=== PATIENT | female | born 1935 | race Caucasian/White ===

== ENCOUNTER → 2020-02-04 13:57 | Outpatient (BNVA) | payer MEDICARE, OTHER, SELFPAY | PROVIDERS: Visit Provider Orthopaedic Surgery | DX: M17.0 Bilateral primary osteoarthritis of knee (principal) | CPT/HCPCS: 99212 ==

== ENCOUNTER → 2020-03-03 12:32 | Outpatient (BNVA) | payer MEDICARE, OTHER, SELFPAY | PROVIDERS: PCP Internal Medicine; Visit Provider Orthopaedic Surgery | DX: Z13.89 Encounter for screening for other disorder (principal) | CPT/HCPCS: 20610; J7324 ==

== ENCOUNTER 2020-03-17 09:42 | Outpatient (REF) | payer MEDICARE, OTHER, SELFPAY ==
[2020-03-17 12:59] LABS: Anion Gap 13 (12-20); Blood Urea Nitrogen 19 mg/dL (9-16); Calcium 9.2 mg/dL (8.4-10.2); Carbon Dioxide 24 mmol/L (22-29); Chloride 105 mmol/L (96-108); Estimated Glomerular Filt Rate > 60; Phosphorus 3.5 mg/dL (2.7-4.5); Potassium 4.3 mmol/l (3.3-5.1); Sodium 138 mmol/L (135-145)
[2020-03-17 14:11] LABS: Renal w Reflex Lab Use Only Order verified
== END 2020-03-17 09:43 | disposition home or self-care (01) ==
LOC: HO.LAB 09:42
PROVIDERS: Absent Provider Internal Medicine Nephrology; Visit Provider Orthopaedic Surgery
DX: E78.1 Pure hyperglyceridemia (principal); I10 Essential (primary) hypertension
CPT/HCPCS: 20610; 80051; 82310; 82565; 84100; 84520; 99212

== ENCOUNTER → 2020-03-25 09:58 | Outpatient (BNVA) | payer MEDICARE, OTHER, SELFPAY | PROVIDERS: Visit Provider Orthopaedic Surgery | DX: M17.0 Bilateral primary osteoarthritis of knee (principal) | CPT/HCPCS: 20610; 99212 ==

== ENCOUNTER → 2020-03-31 09:42 | Outpatient (BNVA) | payer MEDICARE, OTHER, SELFPAY | PROVIDERS: Visit Provider Orthopaedic Surgery | DX: M17.0 Bilateral primary osteoarthritis of knee (principal) | CPT/HCPCS: 20610 ==

== ENCOUNTER → 2020-06-02 09:24 | Outpatient (BNVA) | payer MEDICARE, OTHER, SELFPAY | PROVIDERS: Visit Provider Orthopaedic Surgery | DX: M17.0 Bilateral primary osteoarthritis of knee (principal) | CPT/HCPCS: 99212 ==

== ENCOUNTER 2020-06-05 10:32 | Outpatient (REF) | payer MEDICARE, SELFPAY ==
--- NOTE | ~2020-06-05 | MM_ITS ---
EXAMINATION: MM SCREENING DIGITAL BREAST TOMOSYNTHESIS, BILATERAL CLINICAL INFORMATION: Screening. Asymptomatic. COMPARISON: Mammography: June 05, 2019 and studies dating back to May 21, 2013 TECHNIQUE: Digital breast tomosynthesis is performed in both the craniocaudal and mediolateral oblique views along with computer-aided detection (CAD). Synthesized 2D images are generated from the tomosynthesis. Spot magnification views of the left breast in craniocaudal and mediolateral oblique views performed. FINDINGS: There are scattered areas of fibroglandular density (ACR BI-RADS breast composition Category b). There are no new significant masses, abnormal calcifications, or other abnormalities. Stable postoperative change left breast seen as well as vascular calcifications. MM/MM tomosynthesis screening BI IMPRESSION: There are no significant changes from prior study. ASSESSMENT: BI-RADS 2: Benign RECOMMENDATION: Routine annual mammography screening. This patient's information was entered into a reminder system with a target due date for their next mammogram.
== END 2020-06-05 10:33 | disposition home or self-care (01) ==
LOC: HO.MAMMO 10:32
PROVIDERS: Visit Provider Internal Medicine Endocrinology, Diabetes & Metabolism
DX: Z12.31 Encounter for screening mammogram for malignant neoplasm of breast (principal)
CPT/HCPCS: 77063; 77067

== ENCOUNTER 2020-09-18 14:07 | Outpatient (REF) | payer MEDICARE, OTHER, SELFPAY ==
[2020-09-18 15:21] LABS: Anion Gap 15 (12-20); Blood Urea Nitrogen 20 mg/dL (9-16); Calcium 9.4 mg/dL (8.4-10.2); Carbon Dioxide 23 mmol/L (22-29); Chloride 106 mmol/L (96-108); Estimated Glomerular Filt Rate > 60; Phosphorus 3.6 mg/dL (2.7-4.5); Potassium 4.1 mmol/L (3.3-5.1); Sodium 140 mmol/L (135-145)
[2020-09-18 17:57] LABS: Renal w Reflex Lab Use Only Order verified
== END 2020-09-18 14:08 | disposition home or self-care (01) ==
LOC: HO.LAB 14:07
PROVIDERS: PCP Internal Medicine; Visit Provider Internal Medicine Nephrology
DX: E87.1 Hypo-osmolality and hyponatremia (principal); I10 Essential (primary) hypertension
CPT/HCPCS: 36415; 80051; 82310; 82565; 84100; 84520

== ENCOUNTER 2021-06-08 10:54 | Outpatient (REF) | payer MEDICARE, OTHER, SELFPAY ==
--- NOTE | ~2021-06-08 | MM_ITS ---
EXAMINATION: MM SCREENING DIGITAL BREAST TOMOSYNTHESIS, BILATERAL CLINICAL INFORMATION: Screening. Asymptomatic. Left breast cancer status post lumpectomy, 2013. COMPARISON: Mammography: 06/05/2020, 06/05/2019, 05/31/2019, 05/25/2018 TECHNIQUE: Digital breast tomosynthesis is performed in both the craniocaudal and mediolateral oblique views along with computer-aided detection (CAD). Synthesized 2D images are generated from the tomosynthesis. Additional exaggerated right CC and additional left CC and left MLO views are provided. FINDINGS: There are scattered areas of fibroglandular density (ACR BI-RADS breast composition Category b). There are post therapy changes on the left with reduced breast size and stable scarring. The bilateral breasts show similar parenchymal pattern without interval mass or architectural abnormality or abnormal calcifications. There are no significant changes. MM/MM tomosynthesis screening BI IMPRESSION: No mammographic evidence of malignancy. Post therapy changes left breast, stable. ASSESSMENT: BI-RADS 2: Benign RECOMMENDATION: Routine annual mammography screening. This patient's information was entered into a reminder system with a target due date for their next mammogram.
== END 2021-06-08 10:55 | disposition home or self-care (01) ==
LOC: HO.MAMMO 10:54
PROVIDERS: PCP Internal Medicine; Visit Provider Internal Medicine
DX: Z12.31 Encounter for screening mammogram for malignant neoplasm of breast (principal)
CPT/HCPCS: 77063; 77067

== ENCOUNTER 2021-08-16 09:09 | Day surgery (SDC) | payer MEDICARE, SELFPAY ==
[2021-08-03 11:07] VITALS: BMI 31.4
--- NOTE | 2021-08-06 09:02 | P.CONAN_ITS ---
Documented by User: Kerri Epstein NP 08/06/21 09:04 HPI - Anesthesia Eval Consult details Narrative: 86yo F for Left Cataract Extraction IOL Insertion PCP cleared No previous cataract on record [facility] Active Problems Active Problems: All Active Problems (Updated 08/03/21 @ 15:42 by Joanne Jacques, RN) Primary osteoarthritis of knees, bilateral (Acute) Past Medical History Medical History (Updated 08/03/21 @ 15:42 by Joanne Jacques, RN) Arthritis Asthma Breast cancer Cataract Cough Fatty liver GERD (gastroesophageal reflux disease) HTN (hypertension) Leg edema, left PVD (peripheral vascular disease) Trigeminal neuralgia Vertigo Surgical History Surgical History (Updated 08/03/21 @ 10:52 by Joanne Jacques, RN) History of left salpingo-oophorectomy History of lumpectomy of left breast History of nasal polypectomy History of surgical removal of meniscus of knee Hx of cholecystectomy Hx of hysterectomy Social History Social History Household Members Other:: Ex DIL Are you a primary home care chaplain to a significant other at home: No Do you presently have visiting nurse or other home services: No Patient Tobacco Use Status: Never used Tobacco Use of substances other than those prescribed or required for medical reasons: No Have you been hit, kicked, punched, or otherwise hurt by someone within the past year? If so, by whom?: No Are you DNR?: No Advance Directives: No Advance Directives Information Provided: Yes Advance Directives on File: No Recently lost weight without trying: No Eating poorly because of decreased appetite: No Nutrition Risks: No Nutritional Risk Patient : No : No Meds Allergies Allergy/AdvReac Type Severity Reaction Status Date / Time aspirin [Aspirin] Allergy Unknown NOSEBLEEDS Verified 08/16/21 09:43 codeine [Codeine] Allergy Unknown N/V Verified 08/16/21 09:43 morphine [MORPHINE] Allergy Unknown NAUSEA/VOMI Verified 08/16/21 09:43 TING Penicillins Allergy Unknown FACIAL Verified 08/16/21 09:43 SWELLING Home Medications Medication Instructions Recorded Confirmed Last Taken Type amlodipine 2.5 mg tablet 2.5 mg PO DAILY 02/03/20 08/16/21 08/16/21 08:00 History omeprazole 20 mg capsule,delayed 20 mg PO DAILY 02/03/20 08/03/21 Unknown History release Exam Exam Date and Time: August 06, [id number] Height,Weight and Vital Signs: Height 5 ft Weight 73.028 kg Assessment and Plan Assessment Anesthesia Assessment: Chart Reviewed Documented by User: Hernán Boykin MD 08/16/21 09:47 [facility] Past Medical History Medical History (Updated 08/03/21 @ 15:42 by Joanne Jacques, RN) Arthritis Asthma Breast cancer Cataract Cough Fatty liver GERD (gastroesophageal reflux disease) HTN (hypertension) Leg edema, left PVD (peripheral vascular disease) Trigeminal neuralgia Vertigo Family History Family history of problems with anesthesia: No Surgical History Surgical History (Updated 08/03/21 @ 10:52 by Joanne Jacques, RN) History of left salpingo-oophorectomy History of lumpectomy of left breast History of nasal polypectomy History of surgical removal of meniscus of knee Hx of cholecystectomy Hx of hysterectomy History of Problems with Anesthesia: No Social History Social History Household Members Other:: Ex DIL Are you a primary home care chaplain to a significant other at home: No Do you presently have visiting nurse or other home services: No Patient Tobacco Use Status: Never used Tobacco Use of substances other than those prescribed or required for medical reasons: No Have you been hit, kicked, punched, or otherwise hurt by someone within the past year? If so, by whom?: No Are you DNR?: No Advance Directives: No Advance Directives Information Provided: Yes Advance Directives on File: No Recently lost weight without trying: No Eating poorly because of decreased appetite: No Nutrition Risks: No Nutritional Risk Patient : No : No Meds Allergies Allergy/AdvReac Type Severity Reaction Status Date / Time aspirin [Aspirin] Allergy Unknown NOSEBLEEDS Verified 08/16/21 09:43 codeine [Codeine] Allergy Unknown N/V Verified 08/16/21 09:43 morphine [MORPHINE] Allergy Unknown NAUSEA/VOMI Verified 08/16/21 09:43 TING Penicillins Allergy Unknown FACIAL Verified 08/16/21 09:43 SWELLING Home Medications Medication Instructions Recorded Confirmed Last Taken Type amlodipine 2.5 mg tablet 2.5 mg PO DAILY 02/03/20 08/16/21 08/16/21 08:00 History omeprazole 20 mg capsule,delayed 20 mg PO DAILY 02/03/20 08/03/21 Unknown History release Exam Airway Mallampati Class: II TM Dist: >3cm Neck ROM: Full Denture: Upper and Lower Heart: rrr+[id number] Lungs: cta b/l Assessment and Plan Assessment Anesthesia Assessment: Anesthesia Plan Discussed Final Anesthetic Review Family History of Problems with Anesthesia: No History of Problems with Anesthesia: No NPO: Yes ASA Class: III Final Preanesthetic Review: No Changes in Pt Med Stat, Meds/Allgs Chart Reviewed, Consent Obtained/Reviewed and Anes Risks/Benef Reviewed Patient Risk: Intermediate Procedure Risk: Low Assessment/Block/Sedation in SS: Assess/Block/Sedation-SS Anesthetic Plan Anesthetic Plan: MAC: and Agree w/ Assess. and Plan Disposition: Standard PACU
--- NOTE | 2021-08-06 11:43 | MHC.SHP ---
Pre-Procedural Eval Section A Date of Service: 08/06/21 The patient is an INPATIENT: No Changes since office visit: No Cold of Flu in the past 2 weeks, No New Medical Problems, No Changes in Medication and No Patient answered all questions The History & Physical has been completed within 30 days and I have reviewed it.: Yes Section B Chief Complaint: cataract Allergies: Allergies Allergy/AdvReac Type Severity Reaction Status Date / Time aspirin [Aspirin] Allergy Unknown NOSEBLEEDS Unverified 08/03/21 10:53 codeine [Codeine] Allergy Unknown N/V Unverified 08/03/21 10:53 morphine [MORPHINE] Allergy Unknown NAUSEA/VOMI Unverified 08/03/21 10:53 TING Penicillins Allergy Unknown FACIAL Unverified 08/03/21 10:53 SWELLING Plan Diagnosis/Plan: Unchanged I have reviewed the history and physical and performed a pertinent physical examination on my patient. No changes have occurred unless specified.
--- NOTE | 2021-08-12 08:12 | MHC.SHP ---
Pre-Procedural Eval Section A Date of Service: 08/12/21 The patient is an INPATIENT: No Changes since office visit: No Cold of Flu in the past 2 weeks, No New Medical Problems, No Changes in Medication and No Patient answered all questions The History & Physical has been completed within 30 days and I have reviewed it.: Yes Section B Chief Complaint: cataract Allergies: Allergies Allergy/AdvReac Type Severity Reaction Status Date / Time aspirin [Aspirin] Allergy Unknown NOSEBLEEDS Unverified 08/03/21 10:53 codeine [Codeine] Allergy Unknown N/V Unverified 08/03/21 10:53 morphine [MORPHINE] Allergy Unknown NAUSEA/VOMI Unverified 08/03/21 10:53 TING Penicillins Allergy Unknown FACIAL Unverified 08/03/21 10:53 SWELLING Plan Diagnosis/Plan: Unchanged I have reviewed the history and physical and performed a pertinent physical examination on my patient. No changes have occurred unless specified.
[2021-08-16] MEDS: Tetracaine HCl/PF 0.5% Oph Sol 4 ML DROPS 1 DROP EYE-LEFT (09:51)
[2021-08-16] MEDS: Tropicamide 1 % Ophth Sol 3 ML BTL 1 DROP EYE-LEFT ×3 (09:52→10:04)
[2021-08-16] MEDS: Phenylephrine HCL 2.5% Oph SoL 2 ML BOTTLE 1 DROP EYE-LEFT ×3 (09:56→10:08)
[2021-08-16 10:08] VITALS: BP 183/86; PULSE 88; RESP 16; TEMP 37; O2SAT 97
[2021-08-16] MEDS: Lactated Ringers 500 ML 50 ML IV (10:08)
--- NOTE | 2021-08-16 11:02 | P.PCNO_ITS ---
Ophthalmology Procedure Procedure Date of Service: 08/16/21 Ophthalmology Viscoelastic: Healgabriela Duet Dual Pack Pro Ophthalmology Lenses: TECNIS [id number] (15.5) Procedure Notes: PREOPERATIVE DIAGNOSIS: Decreased visual acuity left eye secondary to cataract POSTOPERATIVE DIAGNOSIS: Same PROCEDURE: Left cataract extraction with intraocular lens insertion SURGEON: Jordi Branch M.D. ANESTHESIA: Topical/MAC ESTIMATED BLOOD LOSS: None COMPLICATIONS: Zonular Dehiscence After obtaining informed consent, the patient was brought to the operation room suite and placed in the supine position. After adequate sedation per anesthesia, topical drops of Tetracaine were given to the left eye. The eye was then prepped and draped in the usual sterile fashion. The operating room microscope was then positioned over the operative eye and a lid speculum placed. A paracentesis was created. Viscoelastic was then instilled into the anterior chamber. A three plane incision was then created temporally, utilizing a 2.85 mm keratome. Capsulotomy forceps were then utilized to create a circular tear capsulotomy. Hydrodissection and hydrodelineation were carried out until adequate mobilization of the nucleus occurred. Phacoemulsification was then utilized to remove the dense central n ucleus followed by removal of the cortical material utilizing the automated aspiration irrigation unit.Zonular Dehiscence was noted at this time, a Capsular Tension Ring was placed. Viscoat elastic was instilled into the posterior capsular bag followed by placement of a posterior chamber intraocular lens without difficulty. The residual Viscoat elastic was then removed utilizing the automated IA machine. The wound was check and found to be watertight. The patient tolerated the procedure well and the lid speculum was removed. Intracameral injection of Vigamox 0.1 mL followed by a subtenon injection of Kenalog-40 0.2 mL were administered. The patient will be seen in the a.m.
[2021-08-16 11:32] VITALS: BP 174/81; PULSE 83; RESP 16; TEMP 36.6; O2SAT 97
== END 2021-08-16 11:47 | disposition home or self-care (01) ==
PROVIDERS: PCP Internal Medicine; Visit Provider Ophthalmology
PROC: (CPT 66985; principal; 2021-08-16 11:20)
DX: H25.13 Age-related nuclear cataract, bilateral (principal); H52.4 Presbyopia; H35.033 Hypertensive retinopathy, bilateral; H40.013 Open angle with borderline findings, low risk, bilateral; H59.88 Other intraoperative complications of eye and adnexa, not elsewhere classified; H27.8 Other specified disorders of lens; Y83.8 Other surgical procedures as the cause of abnormal reaction of the patient, or of later complication, without mention of misadventure at the time of the procedure; Y92.234 Operating room of hospital as the place of occurrence of the external cause; Y77.8 Miscellaneous ophthalmic devices associated with adverse incidents, not elsewhere classified; I10 Essential (primary) hypertension; G50.0 Trigeminal neuralgia; Z79.899 Other long term (current) drug therapy; Z88.0 Allergy status to penicillin; Z88.8 Allergy status to other drugs, medicaments and biological substances; Z85.3 Personal history of malignant neoplasm of breast; H18.413 Arcus senilis, bilateral; H35.433 Paving stone degeneration of retina, bilateral; H02.831 Dermatochalasis of right upper eyelid; H02.834 Dermatochalasis of left upper eyelid
CPT/HCPCS: 66982; J2250; J3300; V2632

== ENCOUNTER 2021-08-30 08:59 | Day surgery (SDC) | payer MEDICARE, OTHER, SELFPAY ==
[2021-08-03 11:15] VITALS: BMI 31.4
--- NOTE | 2021-08-26 08:33 | MHC.SHP ---
Pre-Procedural Eval Section A Date of Service: 08/26/21 The patient is an INPATIENT: No Changes since office visit: No Cold of Flu in the past 2 weeks, No New Medical Problems, No Changes in Medication and No Patient answered all questions The History & Physical has been completed within 30 days and I have reviewed it.: Yes Section B Chief Complaint: cataract Allergies: Allergies Allergy/AdvReac Type Severity Reaction Status Date / Time aspirin [Aspirin] Allergy Unknown NOSEBLEEDS Verified 08/16/21 09:43 codeine [Codeine] Allergy Unknown N/V Verified 08/16/21 09:43 morphine [MORPHINE] Allergy Unknown NAUSEA/VOMI Verified 08/16/21 09:43 TING Penicillins Allergy Unknown FACIAL Verified 08/16/21 09:43 SWELLING Plan Diagnosis/Plan: Unchanged I have reviewed the history and physical and performed a pertinent physical examination on my patient. No changes have occurred unless specified.
--- NOTE | 2021-08-26 12:10 | HO.ANESPROP2 ---
Documented by User: Kerri Epstein NP 08/26/21 12:10 HPI - Anesthesia Eval Consult details Narrative: 86yo F for Right Cataract Extraction IOL Insertion PCP cleared Left eye done 08/16/21 with MAC: Midaz 1 PMFSH Active Problems Active Problems: All Active Problems (Updated 08/03/21 @ 15:42 by Joanne Jacques, RN) Primary osteoarthritis of knees, bilateral (Acute) Past Medical History Medical History (Updated 08/03/21 @ 15:42 by Joanne Jacques, RN) Arthritis Asthma Breast cancer Cataract Cough Fatty liver GERD (gastroesophageal reflux disease) HTN (hypertension) Leg edema, left PVD (peripheral vascular disease) Trigeminal neuralgia Vertigo Family History Family history of problems with anesthesia: No Surgical History Surgical History (Updated 08/03/21 @ 10:52 by Joanne Jacques, LON) History of left salpingo-oophorectomy History of lumpectomy of left breast History of nasal polypectomy History of surgical removal of meniscus of knee Hx of cholecystectomy Hx of hysterectomy History of Problems with Anesthesia: No Social History Social History Household Members Other:: Ex DIL Are you a primary child adolescent care to a significant other at home: No Do you presently have visiting nurse or other home services: No Patient Tobacco Use Status: Never used Tobacco Use of substances other than those prescribed or required for medical reasons: No Have you been hit, kicked, punched, or otherwise hurt by someone within the past year? If so, by whom?: No Are you DNR?: No Advance Directives: No Advance Directives Information Provided: Yes Advance Directives on File: No Recently lost weight without trying: No Eating poorly because of decreased appetite: No Nutrition Risks: No Nutritional Risk Patient : No : No Meds Allergies Allergy/AdvReac Type Severity Reaction Status Date / Time aspirin [Aspirin] Allergy Unknown NOSEBLEEDS Verified 08/16/21 09:43 codeine [Codeine] Allergy Unknown N/V Verified 08/16/21 09:43 morphine [MORPHINE] Allergy Unknown NAUSEA/VOMI Verified 08/16/21 09:43 TING Penicillins Allergy Unknown FACIAL Verified 08/16/21 09:43 SWELLING Home Medications Medication Instructions Recorded Confirmed Last Taken Type amlodipine 2.5 mg tablet 2.5 mg PO DAILY 02/03/20 08/16/21 08/16/21 08:00 History omeprazole 20 mg capsule,delayed 20 mg PO DAILY 02/03/20 08/03/21 Unknown History release Exam Exam Date and Time: August 26, 2021 1210 Height,Weight and Vital Signs: Height 5 ft Weight 73.028 kg Assessment and Plan Assessment Anesthesia Assessment: Chart Reviewed Final Anesthetic Review Family History of Problems with Anesthesia: No History of Problems with Anesthesia: No Documented by User: Hernán Boykin MD 08/30/21 07:25 [facility] Past Medical History Medical History (Updated 08/03/21 @ 15:42 by Joanne Jacques, RN) Arthritis Asthma Breast cancer Cataract Cough Fatty liver GERD (gastroesophageal reflux disease) HTN (hypertension) Leg edema, left PVD (peripheral vascular disease) Trigeminal neuralgia Vertigo Surgical History Surgical History (Updated 08/03/21 @ 10:52 by Joanne Jacques, RN) History of left salpingo-oophorectomy History of lumpectomy of left breast History of nasal polypectomy History of surgical removal of meniscus of knee Hx of cholecystectomy Hx of hysterectomy Social History Social History Household Members Other:: Ex DIL Are you a primary child adolescent care to a significant other at home: No Do you presently have visiting nurse or other home services: No Patient Tobacco Use Status: Never used Tobacco Use of substances other than those prescribed or required for medical reasons: No Have you been hit, kicked, punched, or otherwise hurt by someone within the past year? If so, by whom?: No Are you DNR?: No Advance Directives: No Advance Directives Information Provided: Yes Advance Directives on File: No Recently lost weight without trying: No Eating poorly because of decreased appetite: No Nutrition Risks: No Nutritional Risk Patient : No : No Meds Allergies Allergy/AdvReac Type Severity Reaction Status Date / Time aspirin [Aspirin] Allergy Unknown NOSEBLEEDS Verified 08/16/21 09:43 codeine [Codeine] Allergy Unknown N/V Verified 08/16/21 09:43 morphine [MORPHINE] Allergy Unknown NAUSEA/VOMI Verified 08/16/21 09:43 TING Penicillins Allergy Unknown FACIAL Verified 08/16/21 09:43 SWELLING Home Medications Medication Instructions Recorded Confirmed Last Taken Type amlodipine 2.5 mg tablet 2.5 mg PO DAILY 02/03/20 08/16/21 08/16/21 08:00 History omeprazole 20 mg capsule,delayed 20 mg PO DAILY 02/03/20 08/03/21 Unknown History release Exam Airway Mallampati Class: II TM Dist: >3cm Neck ROM: Full Denture: Upper and Lower Loose/Missing/Broken Teeth: Yes Heart: rrr+s1s2 Lungs: cta b/l Assessment and Plan Assessment Anesthesia Assessment: Anesthesia Plan Discussed Final Anesthetic Review NPO: Yes ASA Class: III Final Preanesthetic Review: No Changes in Pt Med Stat, Meds/Allgs Chart Reviewed, Consent Obtained/Reviewed and Anes Risks/Benef Reviewed Patient Risk: Intermediate Procedure Risk: Low Assessment/Block/Sedation in SS: Assess/Block/Sedation-SS Anesthetic Plan Anesthetic Plan: Agree w/ Assess. and Plan Disposition: Standard PACU
[2021-08-30 10:00] VITALS: BP 172/81; PULSE 98; RESP 18; TEMP 36.1; O2SAT 98
[2021-08-30] MEDS: Tetracaine HCl/PF 0.5% Oph Sol 4 ML DROPS 1 DROP EYE-RIGHT (10:21)
[2021-08-30] MEDS: Tropicamide 1 % Ophth Sol 3 ML BTL 1 DROP EYE-RIGHT ×3 (10:21→10:26)
[2021-08-30] MEDS: Phenylephrine HCL 2.5% Oph SoL 2 ML BOTTLE 1 DROP EYE-RIGHT ×3 (10:22→10:27)
[2021-08-30] MEDS: Lactated Ringers 500 ML 50 ML IV (10:37)
--- NOTE | 2021-08-30 11:22 | HO.PNOPHT ---
Ophthalmology Procedure Procedure Date of Service: 08/30/21 Ophthalmology Viscoelastic: Nicky Plascenciat Dual Pack Pro Ophthalmology Lenses: TECBACILIO [id number] (15) Procedure Notes: PREOPERATIVE DIAGNOSIS: Decreased visual acuity right eye secondary to cataract POSTOPERATIVE DIAGNOSIS: Same PROCEDURE: Right cataract extraction with intraocular lens insertion SURGEON: Jordi Branch M.D. ANESTHESIA: Topical/MAC ESTIMATED BLOOD LOSS: None COMPLICATIONS: None After obtaining informed consent, the patient was brought to the operating room suite and placed in the supine position. After adequate sedation per anesthesia, topical drops of Tetracaine were given to the right eye. The eye was then prepped and draped in the usual sterile fashion. The operating room microscope was then positioned over the operative eye and a lid speculum placed. A paracentesis was created. Viscoelastic was then instilled into the anterior chamber. A three plane incision was then created temporally, utilizing a 2.85 mm keratome. Capsulotomy forceps were then utilized to create a circular tear capsulotomy. Hydrodissection and hydrodelineation were carried out until adequate mobilization of the nucleus occurred. Phacoemulsification was then utilized to remove the dense central nucleus followed by removal of the cortical material utilizing the automated aspiration irrigation unit. Viscoelastic was instilled into the posterior capsular bag followed by placement of a posterior chamber intraocular lens without difficulty. The residual Viscoelastic was then removed utilizing the automated IA machine. The wound was checked and found to be watertight. The patient tolerated the procedure well and the lid speculum was removed. Intracameral injection of Vigamox 0.1 mL followed by a subtenon injection of Kenalog-40 0.2 mL were administered. The patient will be seen in the a.m.
[2021-08-30 11:49] VITALS: BP 172/75; PULSE 97; RESP 16; TEMP 36.2; O2SAT 98
== END 2021-08-30 11:55 | disposition home or self-care (01) ==
PROVIDERS: PCP Internal Medicine; Visit Provider Ophthalmology
PROC: (CPT 66985; principal; 2021-08-30 11:40)
DX: H25.11 Age-related nuclear cataract, right eye (principal); H52.4 Presbyopia; Z83.511 Family history of glaucoma; H40.013 Open angle with borderline findings, low risk, bilateral; H35.033 Hypertensive retinopathy, bilateral; H35.413 Lattice degeneration of retina, bilateral; I10 Essential (primary) hypertension; I87.2 Venous insufficiency (chronic) (peripheral); R60.0 Localized edema; Z79.899 Other long term (current) drug therapy; Z85.3 Personal history of malignant neoplasm of breast; Z88.0 Allergy status to penicillin; Z88.8 Allergy status to other drugs, medicaments and biological substances
CPT/HCPCS: 66984; J2250; J3300; V2632

== ENCOUNTER 2021-09-07 12:48 | Outpatient (REF) | payer MEDICARE, SELFPAY ==
[2021-09-07 14:19] LABS: Anion Gap 12 (12-20); Blood Urea Nitrogen 14 mg/dL (9-16); Calcium 9.6 mg/dL (8.4-10.2); Carbon Dioxide 27 mmol/L (22-29); Chloride 104 mmol/L (96-108); Estimated Glomerular Filt Rate > 60; Phosphorus 3.8 mg/dL (2.7-4.5); Potassium 4.8 mmol/L (3.3-5.1); Sodium 138 mmol/L (135-145)
== END 2021-09-07 12:49 | disposition home or self-care (01) ==
LOC: HO.LAB 12:48
PROVIDERS: PCP Internal Medicine; Visit Provider Internal Medicine Nephrology
DX: E87.1 Hypo-osmolality and hyponatremia (principal); I10 Essential (primary) hypertension
CPT/HCPCS: 36415; 80051; 82310; 82565; 84100; 84520

== ENCOUNTER 2022-06-10 14:04 | Outpatient (REF) | payer MEDICARE, SELFPAY ==
--- NOTE | ~2022-06-10 | MM_ITS ---
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 Due for yearly. COMPARISON: Mammography: 06/08/2021, 06/05/2020, 06/05/2019, 05/31/2019, 05/25/2018 TECHNIQUE: Digital breast tomosynthesis is performed in both the craniocaudal and mediolateral oblique views along with computer-aided detection (CAD). Synthesized 2D images are generated from the tomosynthesis. Additional exaggerated left CC view is provided. FINDINGS: There are scattered areas of fibroglandular density (ACR BI-RADS breast composition Category b). Parenchymal pattern is similar to prior studies. There is no developing density or interval architectural abnormality. No abnormal calcifications. The axilla are unremarkable. Again, there are post therapy changes on the left. No significant changes from prior studies. MM/MM tomosynthesis screening BI IMPRESSION: -No mammographic evidence of malignancy. -Post therapy changes left breast. ASSESSMENT: BI-RADS 2: Benign RECOMMENDATION: Routine annual mammography screening. This patient's information was entered into a reminder system with a target due date for their next mammogram.
== END 2022-06-10 14:05 | disposition home or self-care (01) ==
LOC: HO.MAMMO 14:04
PROVIDERS: Visit Provider Internal Medicine
DX: Z12.31 Encounter for screening mammogram for malignant neoplasm of breast (principal)
CPT/HCPCS: 77063; 77067

== ENCOUNTER 2022-09-20 14:15 | Outpatient (REF) | payer MEDICARE, SELFPAY ==
[2022-09-20 16:18] LABS: Anion Gap 15 (12-20); Blood Urea Nitrogen 20 mg/dL (9-16); Calcium 10.2 mg/dL (8.4-10.2); Carbon Dioxide 23 mmol/L (22-29); Chloride 107 mmol/L (96-108); Estimated Glomerular Filt Rate > 60; Potassium 4.2 mmol/L (3.3-5.1); Sodium 141 mmol/L (135-145)
== END 2022-09-20 14:16 | disposition home or self-care (01) ==
LOC: HO.LAB 14:15
PROVIDERS: Visit Provider Internal Medicine Nephrology
DX: I10 Essential (primary) hypertension (principal)
CPT/HCPCS: 36415; 80051; 82310; 82565; 84520

== ENCOUNTER 2022-11-08 08:25 | Outpatient (REF) | payer MEDICARE, SELFPAY ==
[2022-11-08 10:21] LABS: Basophils Percent Auto 0.6 % (0-2); Eosinophils Absolute Auto 0.8 X10*3/uL (0.0-0.4); Eosinophils Percent Auto 13.5 % (0-4); Hematocrit 39.6 % (37.0-47.0); Hemoglobin 13.5 g/dl (12.0-16.0); Imm Gran Abs Auto 0.02 X10*3/uL (0.00-0.03); Imm Gran Pct Auto 0.3 % (0.0-0.4); Lymphocytes Absolute Auto 2.6 X10*3/uL (1.2-4.9); Lymphocytes Percent Auto 41.9 % (20-40); MANUAL DIFF FLAG SCAN; Mean Corpuscular HGB Conc 34.1 g/dl (31.0-35.0); Mean Corpuscular Hemoglobin 31.3 pg (27.0-33.0); Mean Corpuscular Volume 91.7 fL (80.0-98.0); Mean Platelet Volume 13.6 fL (9.4-12.3); Monocytes Percent Auto 15.9 % (2-11); Neutrophils Absolute Auto 1.7 x10*3/uL (2.0-8.3); Neutrophils Percent Auto 27.8 % (45-73); PLT CLUMP 1; Red Blood Count 4.32 X10*6/uL (4.20-5.50); Red Cell Distribution Width 12.7 % (11.0-16.0); SCAN SMEAR FLAG 1
[2022-11-08 10:46] LABS: Platelet Count 149 X10*3/uL (160-400); SLIDE REVIEW VERIFIED; White Blood Count 6.2 X10*3/uL (4.8-10.8)
[2022-11-08 11:08] LABS: Alanine Aminotransferase 17 U/L (0-31); Albumin Level 4.3 g/dL (3.5-5.0); Alkaline Phosphatase 76 U/L (39-117); Anion Gap 12 (12-20); Aspartate Amino Transferase 26 U/L (5-31); Bilirubin Total 0.7 mg/dL (0.0-1.0); Blood Urea Nitrogen 17 mg/dL (9-16); Carbon Dioxide 26 mmol/L (22-29); Chloride 107 mmol/L (96-108); Cholesterol 173 mg/dL; Estimated Glomerular Filt Rate > 60; Glucose Random 88 mg/dL (60-115); HDL Cholesterol 57 mg/dL; LDL Cholesterol Calculated 101 mg/dl; Potassium 3.7 mmol/L (3.3-5.1); Sodium 141 mmol/L (135-145); Total Protein 7.1 g/dL (6.5-8.0); Triglycerides 79 mg/dL
[2022-11-08 11:28] LABS: Folate 13.1 ng/mL (> or = 4.0); Vitamin B12 661 pg/mL (200-900)
[2022-11-08 11:29] LABS: Thyroid Stimulating Hormone 1.87 uIU/mL (0.32-4.0); Vitamin D 25-OH Total 53.7 ng/mL (>30)
== END 2022-11-08 08:26 | disposition home or self-care (01) ==
LOC: HO.LAB 08:25
PROVIDERS: PCP Internal Medicine; Visit Provider Internal Medicine
DX: I12.9 Hypertensive chronic kidney disease with stage 1 through stage 4 chronic kidney disease, or unspecified chronic kidney disease (principal); N18.9 Chronic kidney disease, unspecified; M54.50 Low back pain, unspecified; Z13.31 Encounter for screening for depression
CPT/HCPCS: 36415; 80053; 80061; 82306; 82607; 82746; 84443; 85025

== ENCOUNTER 2023-01-11 10:00 | Outpatient (RCR) | payer MEDICARE, OTHER, SELFPAY | END 2023-01-26 10:35 | disposition home or self-care (01) | LOC: HO.PT 10:00 | PROVIDERS: PCP Internal Medicine; Visit Provider Internal Medicine | DX: M54.16 Radiculopathy, lumbar region (principal); M48.061 Spinal stenosis, lumbar region without neurogenic claudication | CPT/HCPCS: 97110; 97162 ==

== ENCOUNTER 2023-01-26 11:40 | Outpatient (REF) | payer MEDICARE, OTHER, SELFPAY ==
[2023-01-26 13:26] LABS: MANUAL DIFF FLAG NO
[2023-01-26 13:33] LABS: Basophils Absolute Auto 0.1 X10*3/uL (0.0-0.2); Basophils Percent Auto 0.6 % (0-2); Eosinophils Absolute Auto 0.7 X10*3/uL (0.0-0.4); Eosinophils Percent Auto 8.5 % (0-4); Hematocrit 40.4 % (37.0-47.0); Hemoglobin 13.7 g/dl (12.0-16.0); Imm Gran Abs Auto 0.03 X10*3/uL (0.00-0.03); Imm Gran Pct Auto 0.4 % (0.0-0.4); Lymphocytes Absolute Auto 2.6 X10*3/uL (1.2-4.9); Lymphocytes Percent Auto 30.7 % (20-40); Mean Corpuscular HGB Conc 33.9 g/dl (31.0-35.0); Mean Corpuscular Hemoglobin 31.6 pg (27.0-33.0); Mean Corpuscular Volume 93.1 fL (80.0-98.0); Mean Platelet Volume 12.5 fL (9.4-12.3); Monocytes Absolute Auto 1.4 X10*3/uL (0.1-1.2); Monocytes Percent Auto 16.4 % (2-11); Neutrophils Absolute Auto 3.7 x10*3/uL (2.0-8.3); Neutrophils Percent Auto 43.4 % (45-73); Platelet Count 208 X10*3/uL (160-400); Red Blood Count 4.34 X10*6/uL (4.20-5.50); Red Cell Distribution Width 12.7 % (11.0-16.0); White Blood Count 8.5 X10*3/uL (4.8-10.8)
[2023-01-26 13:46] LABS: Alanine Aminotransferase 13 U/L (0-31); Albumin Level 4.3 g/dL (3.5-5.0); Alkaline Phosphatase 79 U/L (39-117); Anion Gap 9 (12-20); Aspartate Amino Transferase 24 U/L (5-31); Bilirubin Total 0.6 mg/dL (0.0-1.0); Blood Urea Nitrogen 19 mg/dL (9-16); Carbon Dioxide 29 mmol/L (22-29); Chloride 109 mmol/L (96-108); Estimated Glomerular Filt Rate > 60; Glucose Random 88 mg/dL (60-115); Sodium 143 mmol/L (135-145); Total Protein 7.2 g/dL (6.5-8.0)
== END 2023-01-26 11:41 | disposition home or self-care (01) ==
LOC: HO.10HDL 11:40
PROVIDERS: Visit Provider Internal Medicine
DX: D69.6 Thrombocytopenia, unspecified (principal); I10 Essential (primary) hypertension; M51.16 Intervertebral disc disorders with radiculopathy, lumbar region
CPT/HCPCS: 36415; 80053; 85025

== ENCOUNTER 2023-01-27 09:35 | Outpatient (AMB) | payer MEDICARE, SELFPAY ==
--- NOTE | 2023-01-27 09:44 | HO.NEPHOV ---
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 She recently had vertigo which got better with Meclizine. She tries to maintain low sodium diet and is compliant with her medications. Her BP has been at goal. She does not have any chest pain, SOB, PND, orthopnea, edema or urinary symptoms. She feels well. Assessment & Plan Assessment & Plan (1) Chronic Kidney Disease: Code(s): N18.9 - Chronic kidney disease, unspecified Qualifiers: Chronic kidney disease stage: stage 1 Qualified Code(s): N18.1 - Chronic kidney disease, stage 1 (2) HTN (hypertension): Code(s): I10 - Essential (primary) hypertension Qualifiers: Hypertension type: primary hypertension Qualified Code(s): I10 - Essential (primary) hypertension Plan 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 No H/O proteinuria; BP has been at goal on current dose of Amlodipine Volume status optimal. No active symptoms of macro/cyndi vascular disease No NSAID's. Good hydration. No medication changes today; F/U labs ordered Answered all questions/ FU given; Time spent for data retrieval/documentation/pt encounter 31 mts Orders: Orders Electrolytes 01/27/23 I10 - Essential (primary) hypertension Blood Urea Nitrogen 01/27/23 I10 - Essential (primary) hypertension Creatinine 01/27/23 I10 - Essential (primary) hypertension Calcium 01/27/23 I10 - Essential (primary) hypertension Coding Level of Care Code Est Pt Level 3 (99358) Diagnoses Stage 1 chronic kidney disease N18.1 Chronic kidney disease stage: stage 1 Primary hypertension I10 Hypertension type: primary hypertension PFSH Medical History (Updated 01/27/23 @ 10:12 by Flaquito Momin MD) Cataract Vertigo Leg edema, left Fatty liver Arthritis Cough Trigeminal neuralgia Asthma HTN (hypertension) GERD (gastroesophageal reflux disease) Breast cancer PVD (peripheral vascular disease) Surgical History History of left salpingo-oophorectomy Hx of hysterectomy History of nasal polypectomy Hx of cholecystectomy History of lumpectomy of left breast History of surgical removal of meniscus of knee Family History (Updated 01/27/23 @ 09:51 by Alyx Mcneal MA) Mother Cancer Brother Diabetes Social History (Updated 01/27/23 @ 09:51 by Alyx Mcneal MA) Household Members Other:: Ex DIL Are you a primary urgent care technician to a significant other at home: No Do you presently have visiting nurse or other home services: No Alcohol intake: never Patient Tobacco Use Status: Never used Tobacco
[2023-01-27 09:45] VITALS: BP 154/70; PULSE 108; BMI 27.9
== END 2023-01-27 10:19 | disposition home or self-care (01) ==
LOC: HO.HKA 09:35
PROVIDERS: PCP Internal Medicine; Visit Provider Internal Medicine Nephrology
DX: I12.9 Hypertensive chronic kidney disease with stage 1 through stage 4 chronic kidney disease, or unspecified chronic kidney disease (principal); N18.1 Chronic kidney disease, stage 1
CPT/HCPCS: 99214

== ENCOUNTER → 2023-01-27 09:35 | Outpatient (BNVA) | payer MEDICARE, OTHER, SELFPAY | PROVIDERS: PCP Internal Medicine; Visit Provider Internal Medicine Nephrology | DX: I12.9 Hypertensive chronic kidney disease with stage 1 through stage 4 chronic kidney disease, or unspecified chronic kidney disease (principal); N18.1 Chronic kidney disease, stage 1 | CPT/HCPCS: 99212 ==

== ENCOUNTER 2023-02-09 08:11 | Outpatient (REF) | payer MEDICARE, SELFPAY ==
--- NOTE | ~2023-02-09 | XR_ITS ---
EXAMINATION: XR KNEE, RIGHT XR KNEE, LEFT XR KNEE AP STANDING CLINICAL INFORMATION: Pain. COMPARISON: Radiographs dated 11/12/2019. TECHNIQUE: Lateral and axial of the right knee were obtained. Lateral and axial of the left knee were obtained. AP bilateral standing view of the knees was obtained. FINDINGS: RIGHT KNEE: Bony alignment and mineralization are normal. There is moderately severe narrowing of the medial joint space compartment of the left knee, with peripheral osteophyte formation. The lateral joint space compartment is well-maintained. There is moderate narrowing of the patellofemoral compartment, with peripheral osteophyte formation. No fracture, dislocation or significant joint effusion is seen. There is no foreign body. LEFT KNEE: Bony alignment and mineralization are normal. There is marked narrowing of the lateral joint space compartment. The medial joint space compartment is well-maintained. There is moderate narrowing of the patellofemoral compartment. There is tricompartment peripheral osteophyte formation. No fracture, dislocation or significant joint effusion is seen. There is a mild valgus configuration. There is no foreign body. XR/XR knee standing BI IMPRESSION: 1. There is tricompartment osteoarthritic change of the right knee, most pronounced of the medial joint space compartment, where it is moderately severe. 2. There is tricompartment osteoarthritic of the left knee, most pronounced of the lateral joint space compartment, where it is marked. 3. There is a mild valgus configuration of the left knee.
--- NOTE | ~2023-02-09 | XR_ITS ---
EXAMINATION: XR KNEE, RIGHT XR KNEE, LEFT XR KNEE AP STANDING CLINICAL INFORMATION: Pain. COMPARISON: Radiographs dated 11/12/2019. TECHNIQUE: Lateral and axial of the right knee were obtained. Lateral and axial of the left knee were obtained. AP bilateral standing view of the knees was obtained. FINDINGS: RIGHT KNEE: Bony alignment and mineralization are normal. There is moderately severe narrowing of the medial joint space compartment of the left knee, with peripheral osteophyte formation. The lateral joint space compartment is well-maintained. There is moderate narrowing of the patellofemoral compartment, with peripheral osteophyte formation. No fracture, dislocation or significant joint effusion is seen. There is no foreign body. LEFT KNEE: Bony alignment and mineralization are normal. There is marked narrowing of the lateral joint space compartment. The medial joint space compartment is well-maintained. There is moderate narrowing of the patellofemoral compartment. There is tricompartment peripheral osteophyte formation. No fracture, dislocation or significant joint effusion is seen. There is a mild valgus configuration. There is no foreign body. XR/XR knee RT 2V IMPRESSION: 1. There is tricompartment osteoarthritic change of the right knee, most pronounced of the medial joint space compartment, where it is moderately severe. 2. There is tricompartment osteoarthritic of the left knee, most pronounced of the lateral joint space compartment, where it is marked. 3. There is a mild valgus configuration of the left knee.
--- NOTE | ~2023-02-09 | XR_ITS ---
EXAMINATION: XR KNEE, RIGHT XR KNEE, LEFT XR KNEE AP STANDING CLINICAL INFORMATION: Pain. COMPARISON: Radiographs dated 11/12/2019. TECHNIQUE: Lateral and axial of the right knee were obtained. Lateral and axial of the left knee were obtained. AP bilateral standing view of the knees was obtained. FINDINGS: RIGHT KNEE: Bony alignment and mineralization are normal. There is moderately severe narrowing of the medial joint space compartment of the left knee, with peripheral osteophyte formation. The lateral joint space compartment is well-maintained. There is moderate narrowing of the patellofemoral compartment, with peripheral osteophyte formation. No fracture, dislocation or significant joint effusion is seen. There is no foreign body. LEFT KNEE: Bony alignment and mineralization are normal. There is marked narrowing of the lateral joint space compartment. The medial joint space compartment is well-maintained. There is moderate narrowing of the patellofemoral compartment. There is tricompartment peripheral osteophyte formation. No fracture, dislocation or significant joint effusion is seen. There is a mild valgus configuration. There is no foreign body. XR/XR knee LT 2V IMPRESSION: 1. There is tricompartment osteoarthritic change of the right knee, most pronounced of the medial joint space compartment, where it is moderately severe. 2. There is tricompartment osteoarthritic of the left knee, most pronounced of the lateral joint space compartment, where it is marked. 3. There is a mild valgus configuration of the left knee.
== END 2023-02-09 08:12 | disposition home or self-care (01) ==
LOC: HO.HOSX 08:11
PROVIDERS: Visit Provider Orthopaedic Surgery
DX: M17.0 Bilateral primary osteoarthritis of knee (principal); N18.9 Chronic kidney disease, unspecified
CPT/HCPCS: 73560; 73565; 99212

== ENCOUNTER 2023-02-09 10:48 | Outpatient (AMB) | payer MEDICARE, MEDICAID, SELFPAY ==
--- NOTE | 2023-02-09 11:01 | A.OFFVIS_ITS ---
Intake Intake Visit Reasons: OV- OA of both knees Intake Note: Briana is an 87 year old female who presents today for a follow up of her bilateral knee OA. She is a previous patient of Dr. Medrano. She has tried and failed NSAIDs, PT, Cortisone Injections and Synvisc One injections. She reports only 2 weeks of relief with gel. Patient rpeorts that she has three flights of stairs in and out of the house which makes daily activity quite difficult. She recently had a cortisone injection done with her PCP which is helping. Allergies aspirin [Aspirin] Allergy (Unknown, Verified 08/16/21 09:43) NOSEBLEEDS codeine [Codeine] Allergy (Unknown, Verified 08/16/21 09:43) N/V morphine [MORPHINE] Allergy (Unknown, Verified 08/16/21 09:43) NAUSEA/VOMITING Penicillins Allergy (Unknown, Verified 01/27/23 09:49) FACIAL SWELLING HPI OV- OA of both knees HPI Details Briana is an 87 year old woman with bilateral knee OA who presents with complaints of pain. She reports pain with daily activity, worse with using stairs. She says she has to use 3 flights of stairs whenever she leaves her house, which is very di fficult for her. She is a previous patient of Dr. Medrano, and has found little or no relief from steroid injections, Synvisc injections, NSAIDs, or PT. She reports having a recent knee injection done by her PCP, which is giving her some relief. She has a hx of CKD. [facility]LY [facility], [facility] Medical History (Updated 01/27/23 @ 10:12 by Flaquito Momin MD) Cataract Vertigo Leg edema, left Fatty liver Arthritis Cough Trigeminal neuralgia Asthma HTN (hypertension) GERD (gastroesophageal reflux disease) Breast cancer PVD (peripheral vascular disease) Surgical History History of left salpingo-oophorectomy Hx of hysterectomy History of nasal polypectomy Hx of cholecystectomy History of lumpectomy of left breast History of surgical removal of meniscus of knee Family History (Updated 01/27/23 @ 09:51 by Alyx Mcneal MA) Mother Cancer Brother Diabetes Social History (Updated 01/27/23 @ 09:51 by Alyx Mcneal MA) Household Members Other:: Ex DIL Are you a primary client care consultant to a significant other at home: No Do you presently have visiting nurse or other home services: No Alcohol intake: never Patient Tobacco Use Status: Never used Tobacco Review of Systems Const All systems reviewed & are unremarkable except as noted in HPI and below Physical Exam Const General: no acute distress, alert and awake Orientation/consciousness: patient oriented x3 HEENT Head: Yes normocephalic and Yes atraumatic Eyes EOM: EOMs intact bilaterally Resp Effort & Inspection: normal respiratory effort and able to speak in complete sentences Cardio Jugular venous distension: no JVD Skin General skin exam: turgor normal Rashes: no rashes Neuro General: patient oriented x3 Extrem Other: Bilateral Knees: Valgus left knee with lateral compartment TTP Medial compartment right knee OA Psych Appearance: grossly normal Affect: normal affect Attitude: cooperative Results Reviewed Results Reviewed: I personally reviewed relevant radiographs Severe valgus pattern left knee OA and moderate to severe right knee medial compartment OA Assessment & Plan Assessment & Plan (1) Primary osteoarthritis of knees, bilateral: Code(s): M17.0 - Bilateral primary osteoarthritis of knee Plan: This is an 87 year old woman with bilateral knee OA but more serious left knee valgus pattern OA. She has pain with daily activity, worse with using stairs or She has failed conservative treatment options in the past, though has found brief relief from knee injections. She is highly active healthy. She feels she is unable to engage in meaningful daily activities without pain. She is limited in her ADLs. I discussed her diagnosis and her treatment options. Her left knee is worse and she has a moderate valgus deformity which makes ambulation tiring and difficult. I recommend left TKA. I discussed the risks benefits and alternatives including but not limited to the risk of pain, infection, stif fness, need for further surgery as well as potential medical complications such as blood clots, pulmonary embolism and cardiac complications. She will discuss timing and medical clearance with CW. Orders: Orders XR knee standing BI 02/09/23 M25.569 - Pain in unspecified knee XR knee LT 2V 02/09/23 M25.569 - Pain in unspecified knee XR knee RT 2V 02/09/23 M25.569 - Pain in unspecified knee Coding Level of Care Code Est Pt Level 4 (06979) Diagnoses Primary osteoarthritis of knees, bilateral M17.0
== END 2023-02-09 12:19 | disposition home or self-care (01) ==
PROVIDERS: PCP Internal Medicine; Visit Provider Orthopaedic Surgery
DX: M17.0 Bilateral primary osteoarthritis of knee (principal)
CPT/HCPCS: 99214

== ENCOUNTER 2023-04-07 09:25 | Outpatient (REF) | payer MEDICARE, MEDICAID, SELFPAY ==
[2023-04-07 11:04] LABS: Anion Gap 14 (12-20); Blood Urea Nitrogen 13 mg/dL (9-16); Calcium 9.6 mg/dL (8.4-10.2); Carbon Dioxide 27 mmol/L (22-29); Chloride 105 mmol/L (96-108); Estimated Glomerular Filt Rate > 60; Potassium 3.9 mmol/L (3.3-5.1); Sodium 142 mmol/L (135-145)
== END 2023-04-07 09:26 | disposition home or self-care (01) ==
LOC: HO.10HDL 09:25
PROVIDERS: Visit Provider Internal Medicine Nephrology
DX: I12.9 Hypertensive chronic kidney disease with stage 1 through stage 4 chronic kidney disease, or unspecified chronic kidney disease (principal); N18.9 Chronic kidney disease, unspecified
CPT/HCPCS: 36415; 80051; 82310; 82565; 84520; 99212

== ENCOUNTER 2023-04-07 09:33 | Outpatient (AMB) | payer MEDICARE, MEDICAID, SELFPAY ==
--- NOTE | 2023-04-07 09:41 | HO.NEPHOV ---
HPI HPI Comments History of Present Illness Details Briana was seen in follow up for hypertension. She recently had vertigo which resolved with Meclizine. She tries to maintain low sodium diet and is compliant with her medications. Her BP has been at goal. She does not have any chest pain, SOB, PND, orthopnea, edema or urinary symptoms. She recently had stomach flu for a week. She was COVID negative .She feels well except for her left knee pain. She is going to have left knee surgery in May. FORMERLY [facility] Medical History (Updated 01/27/23 @ 10:12 by Flaquito Momin MD) Cataract Vertigo Leg edema, left Fatty liver Arthritis Cough Trigeminal neuralgia Asthma HTN (hypertension) GERD (gastroesophageal reflux disease) Breast cancer PVD (peripheral vascular disease) Surgical History History of left salpingo-oophorectomy Hx of hysterectomy History of nasal polypectomy Hx of cholecystectomy History of lumpectomy of left breast History of surgical removal of meniscus of knee Family History Mother Cancer Brother Diabetes Social History Household Members Other:: Ex DIL Are you a primary transitional care manager to a significant other at home: No Do you presently have visiting nurse or other home services: No Alcohol intake: never Patient Tobacco Use Status: Never used Tobacco Vital Signs 04/07/23 09:42 04/07/23 10:01 Height 5 ft 3 in Weight 155 lb BMI 27.5 BP 138/70 120/70 Blood Pressure Location Rt brachial Position Sitting Pulse 104 H Pulse Source Pulse Oximeter Pulse Oximetry (%) 95 Oxygen Delivery Method Room Air Physical Exam Vital Signs: Last Vital Signs Pulse 104 H 04/07/23 09:42 BP 138/70 04/07/23 09:42 Pulse Ox 95 04/07/23 09:42 Oxygen Delivery Method Room Air 04/07/23 09:42 BMI result Body Mass Index 27.5 Const General: comfortable and no acute distress Orientation/consciousness: patient oriented x3 HEENT Head: Yes normocephalic Mouth: Normal oral and palatal mucosa present Eyes EOM: EOMs intact bilaterally Neck Neck: Yes supple Resp Auscultation: clear to auscultation bilaterally Cardio Jugular venous distension: no JVD Rate: regular rate GI Palpation (GI): Soft to palpation Auscultation: normal bowel sounds General: Yes no CVA tenderness Back/Spine/Pelvis Back: no CVA tenderness Skin General skin exam: no rashes or lesions noted Neuro General: patient oriented x3 and moves all extremities Extrem General: Yes no pedal edema Assessment & Plan Assessment & Plan (1) HTN (hypertension): Code(s): I10 - Essential (primary) hypertension Qualifiers: Hypertension type: primary hypertension Qualified Code(s): I10 - Essential (primary) hypertension Plan 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 No H/O proteinuria; BP has been at goal on current dose of Amlodipine Volume status optimal. No active symptoms of macro/cyndi vascular disease No NSAID's. Good hydration. No medication changes today; F/U labs ordered Answered all questions/ FU given Orders: Orders Blood Urea Nitrogen 6 Months I10 - Essential (primary) hypertension Electrolytes 6 Months I10 - Essential (primary) hypertension Protein Creatinine Ratio, Ur Today I10 - Essential (primary) hypertension Creatinine 6 Months I10 - Essential (primary) hypertension Coding Level of Care Code Est Pt Level 3 (49841) Diagnoses Primary hypertension I10 Hypertension type: primary hypertension Results Reviewed Nephrology Results: Hgb 13.7 g/dl (12.0-16.0) 01/26/23 WBC 8.5 X10*3/uL (4.8-10.8) 01/26/23 Plt Count 208 X10*3/uL (160-400) 01/26/23 Sodium 143 mmol/L (135-145) 01/26/23 Potassium 4.0 mmol/L (3.3-5.1) 01/26/23 Chloride 109 mmol/L (96-108) H 01/26/23 Carbon Dioxide 29 mmol/L (22-29) 01/26/23 BUN 19 mg/dL (9-16) H 01/26/23 Creatinine 0.70 mg/dL (0.5-1.4) 01/26/23 Calcium 10.0 mg/dL (8.4-10.2) 01/26/23 Phosphorus 3.8 mg/dL (2.7-4.5) 09/07/21
[2023-04-07 09:42] VITALS: BP 138/70; PULSE 104; O2SAT 95; BMI 27.5
[2023-04-07 10:01] VITALS: BP 120/70
== END 2023-04-07 10:08 | disposition home or self-care (01) ==
PROVIDERS: PCP Internal Medicine; Visit Provider Internal Medicine Nephrology
DX: I10 Essential (primary) hypertension (principal)
CPT/HCPCS: 99213

== ENCOUNTER → 2023-05-08 13:53 | Outpatient (BNVA) | payer MEDICARE, SELFPAY | PROVIDERS: PCP Internal Medicine; Visit Provider Orthopaedic Surgery ==

== ENCOUNTER 2023-05-25 09:06 | Outpatient (REF) | payer MEDICARE, MEDICAID, SELFPAY ==
[2023-05-25 10:54] LABS: MANUAL DIFF FLAG NO
[2023-05-25 11:05] LABS: Basophils Percent Auto 0.5 % (0-2); Eosinophils Absolute Auto 0.4 X10*3/uL (0.0-0.4); Eosinophils Percent Auto 5.6 % (0-4); Hematocrit 41.4 % (37.0-47.0); Hemoglobin 14.3 g/dl (12.0-16.0); Imm Gran Abs Auto 0.02 X10*3/uL (0.00-0.03); Imm Gran Pct Auto 0.3 % (0.0-0.4); Lymphocytes Absolute Auto 2.1 X10*3/uL (1.2-4.9); Lymphocytes Percent Auto 32.7 % (20-40); Mean Corpuscular HGB Conc 34.5 g/dl (31.0-35.0); Mean Corpuscular Hemoglobin 31.8 pg (27.0-33.0); Mean Platelet Volume 12.4 fL (9.4-12.3); Monocytes Absolute Auto 1.1 X10*3/uL (0.1-1.2); Monocytes Percent Auto 16.6 % (2-11); Neutrophils Absolute Auto 2.9 x10*3/uL (2.0-8.3); Neutrophils Percent Auto 44.3 % (45-73); Platelet Count 195 X10*3/uL (160-400); Red Cell Distribution Width 12.3 % (11.0-16.0); White Blood Count 6.4 X10*3/uL (4.8-10.8)
[2023-05-25 11:33] LABS: Alanine Aminotransferase 13 U/L (0-31); Albumin Level 4.5 g/dL (3.5-5.0); Alkaline Phosphatase 92 U/L (39-117); Anion Gap 12 (12-20); Aspartate Amino Transferase 24 U/L (5-31); Bilirubin Total 0.6 mg/dL (0.0-1.0); Blood Urea Nitrogen 18 mg/dL (9-16); Calcium 9.8 mg/dL (8.4-10.2); Carbon Dioxide 25 mmol/L (22-29); Chloride 107 mmol/L (96-108); Estimated Glomerular Filt Rate > 60; Glucose Random 116 mg/dL (60-115); Potassium 3.9 mmol/L (3.3-5.1); Sodium 140 mmol/L (135-145); Total Protein 7.5 g/dL (6.5-8.0)
== END 2023-05-25 09:07 | disposition home or self-care (01) ==
LOC: HO.10HDL 09:06
PROVIDERS: Visit Provider Internal Medicine
DX: D69.6 Thrombocytopenia, unspecified (principal); I10 Essential (primary) hypertension; M51.16 Intervertebral disc disorders with radiculopathy, lumbar region
CPT/HCPCS: 36415; 80053; 85025; 99212

== ENCOUNTER 2023-05-25 09:19 | Outpatient (AMB) | payer MEDICARE, SELFPAY ==
--- NOTE | 2023-05-25 07:49 | MHC.OFFVIS ---
Intake Vital Signs 05/25/23 09:27 Height 5 ft 3 in Weight 155 lb BMI 27.5 Intake Visit Reasons: Preop LT TKA 06/06/23 NE Intake Note: Briana an 87 year old female presents today for a preoperative left TKA on 06/06/23 NE. Pain management agreement reviewed and signed. Allergies aspirin [Aspirin] Allergy (Unknown, Verified 05/25/23 09:28) NOSEBLEEDS codeine [Codeine] Allergy (Unknown, Verified 05/25/23 09:28) N/V morphine [MORPHINE] Allergy (Unknown, Verified 05/25/23 09:28) NAUSEA/VOMITING Penicillins Allergy (Unknown, Verified 05/25/23 09:28) FACIAL SWELLING Medication List - Last Reconciled 05/25/23 by Mica Tillman PA-C amlodipine 2.5 mg PO DAILY cimetidine 200 mg PO QIDACHS meclizine 25 mg PO DAILY PRN sertraline 25 mg PO DAILY HPI HPI Comments History of Present Illness Details Ms. Farias presents to the office today for preop visit. She is scheduled for left total knee arthroplasty with Dr. Sanches. She continues to have ongoing pain and difficulty with ambulation in the left knee, which is affecting her quality of life; therefore, she has elected to move forward with surgery. [facility] Medical History (Updated 05/25/23 @ 07:50 by Mica Tillman PA-C) Cataract Vertigo Leg edema, left Fatty liver Arthritis Cough Trigeminal neuralgia Asthma HTN (hypertension) GERD (gastroesophageal reflux disease) Breast cancer PVD (peripheral vascular disease) Surgical History History of left salpingo-oophorectomy Hx of hysterectomy History of nasal polypectomy Hx of cholecystectomy History of lumpectomy of left breast History of surgical removal of meniscus of knee Family History Mother Cancer Brother Diabetes Social History Household Members Other:: Ex DIL Are you a primary care provider to a significant other at home: No Do you presently have visiting nurse or other home services: No Alcohol intake: never Patient Tobacco Use Status: Never used Tobacco Review of Systems Const All systems reviewed & are unremarkable except as noted in HPI and below Physical Exam Vital Signs: BMI result Body Mass Index 27.5 Const General: cooperative and no acute distress Orientation/consciousness: patient oriented x3 HEENT Head: Yes normal to inspection, Yes normocephalic and Yes atraumatic Eyes General: appearance normal, both eyes and all related structures Neck Neck: Yes normal visual inspection and Yes no lymphadenopathy Resp Effort & Inspection: normal respiratory effort and able to speak in complete sentences Cardio Rate: regular rate Peripheral pulses: Peripheral pulses 2+ throughout GI Inspection: Yes normal to inspection Palpation (GI): Soft to palpation Skin General skin exam: no rashes or lesions noted Neuro General: patient oriented x3 Extrem Other: Left knee: Skin intact. No abrasion or rashes. She has a valgus deformity noted. ROM is 0-95 degrees. Calf supple, nontender. NVI. Psych Appearance: grossly normal Mental Status: mental status grossly normal Assessment & Plan Assessment & Plan (1) Osteoarthritis of left knee: Code(s): M17.12 - Unilateral primary osteoarthritis, left knee Qualifiers: Osteoarthritis type: primary Qualified Code(s): M17.12 - Unilateral primary osteoarthritis, left knee Plan: I discussed in detail the procedure and what to expect pre and post operatively. We discussed the risks, benefits and alternatives to the surgery as well as the rehabilitation course. The risks; which include, but are not limited to infection, bleeding, nerve injury, ongoing pain, swelling, and stiffness, perioperative risk of injury to bones and soft tissues, and blood clots. I?ve answered all questions and with their understanding they have consented to move forward with Left total knee arthroplasty with Dr. Sanches Ok to take Oxycodone No ASA due to nose bleeds-use lovenox post op Orders: Orders PT Evaluation and Treatment Today M17.12 - Unilateral primary osteoarthritis, left knee Patient Instructions: Scribed for Mica Tillman PA-C, by Ricardo Mccord emergency medical technician basic, on 05/25/2023 at 9:30 AM EVERARDO. Mica Trotter PA-C, have personally reviewed and agree with the information entered by the scribe. Coding Level of Care Code Est Pt Level 3 (16071) Diagnoses Primary osteoarthritis of left knee M17.12 Osteoarthritis type: primary
[2023-05-25 09:27] VITALS: BMI 27.5
== END 2023-05-25 10:35 | disposition home or self-care (01) ==
PROVIDERS: PCP Internal Medicine; Visit Provider Physician Assistant
DX: M17.12 Unilateral primary osteoarthritis, left knee (principal)
CPT/HCPCS: 99024

== ENCOUNTER 2023-06-06 10:02 | Inpatient (IN) | payer MEDICARE, MEDICAID, OTHER, SELFPAY ==
[2023-05-26 12:22] VITALS: BP 161/80; PULSE 88; RESP 18; O2SAT 96; BMI 26.6
--- NOTE | 2023-05-26 12:50 | P.CONAN_ITS ---
Documented by User: Kerri Epstein NP 06/02/23 11:09 HPI - Anesthesia Eval Consult details Narrative: 87yo F for Left Knee Replacement Total Medically cleared No recent illness No CP/SOB with house work and dogs Trigeminal neuralgia. >5 years ago s/p RFA GERD. OTC cimetidine controlls PVD. No blood thinners. Mild CKD. [place] [facility] [place] Active Problems Active Problems: All Active Problems (Updated 05/26/23 @ 12:11 by Liane Wing RN) Osteoarthritis of left knee (Acute) Primary osteoarthritis of knees, bilateral (Acute) HTN (hypertension) (Acute) Past Medical History Medical History Back pain Anxiety Cataract Vertigo Leg edema, left Fatty liver Arthritis Trigeminal neuralgia HTN (hypertension) GERD (gastroesophageal reflux disease) Breast cancer PVD (peripheral vascular disease) Family History Family History Mother Cancer Brother Diabetes Family history of problems with anesthesia: No Surgical History Surgical History History of esophagogastroduodenoscopy (EGD) H/O colonoscopy History of bilateral cataract extraction History of left salpingo-oophorectomy Hx of hysterectomy History of nasal polypectomy Hx of cholecystectomy History of lumpectomy of left breast History of surgical removal of meniscus of knee History of Problems with Anesthesia: No Social History Social History Household Members Other:: Ex DIL Are you a primary childcare center administrator to a significant other at home: No Do you presently have visiting nurse or other home services: No Alcohol intake: never Patient Tobacco Use Status: Never used Tobacco Have you been hit, kicked, punched, or otherwise hurt by someone within the past year? If so, by whom?: No Advance Directives: No Advance Directives Information Provided: No Advance Directives on File: No Recently lost weight without trying: No Eating poorly because of decreased appetite: No Nutrition Risks: No Nutritional Risk Patient : No : No Poor oral hygiene: Yes (no teeth except 1 on the bottom) Meds Allergies Allergy/AdvReac Type Severity Reaction Status Date / Time aspirin [Aspirin] Allergy Unknown NOSEBLEEDS Verified 05/25/23 09:28 codeine [Codeine] Allergy Unknown N/V Verified 05/25/23 09:28 morphine [MORPHINE] Allergy Unknown NAUSEA/VOMI Verified 05/25/23 09:28 TING Penicillins Allergy Unknown FACIAL Verified 05/25/23 09:28 SWELLING Home Medications Medication Instructions Recorded Confirmed Last Taken Type amlodipine 2.5 mg tablet 2.5 mg PO DAILY 02/03/20 05/26/23 08/30/21 History meclizine 25 mg tablet 25 mg PO DAILY PRN Vertigo 01/27/23 05/26/23 Unknown History sertraline 25 mg tablet 25 mg PO BEDTIME 05/25/23 05/26/23 Unknown History calcium carbonate 500 mg-vitamin 1 tab PO BID 05/26/23 05/26/23 Unknown History D3 3.125 mcg (125 unit) tablet cimetidine 200 mg tablet 200 mg PO DAILY 05/26/23 05/26/23 Unknown History lactobacillus combination no.4 3 3,000 mmu cells PO DAILY 05/26/23 05/26/23 Unknown History billion cell capsule (Probiotic) turmeric 400 mg capsule 400 mg PO DAILY 05/26/23 05/26/23 Unknown History Exam Height,Weight and Vital Signs: Height 5 ft 3 in Weight 68.039 kg Last Vital Signs Pulse 88 05/26/23 12:22 Resp 18 05/26/23 12:22 BP 161/80 H 05/26/23 12:22 Pulse Ox 96 05/26/23 12:22 O2 Del Method Room Air 05/26/23 12:22 Pertinent Lab Results Pertinent Lab Results: Laboratory Tests 05/25/23 09:10 WBC 6.4 Hgb 14.3 Hct 41.4 Plt Count 195 Sodium 140 Potassium 3.9 Chloride 107 Carbon Dioxide 25 BUN 18 H Creatinine 0.80 Narrative Narrative: EKG 04/2023 NSR @ 95 Airway Mallampati Class: II (Small mouth) TM Dist: >3cm Neck ROM: Limited Loose/Missing/Broken Teeth: Yes (Only #26 remains, not loose or broken) Heart: RRR Lungs: CTAB Assessment and Plan Assessment Anesthesia Assessment: Anesthesia Plan Discussed and PAT Visit Final Anesthetic Review Family History of Problems with Anesthesia: No History of Problems with Anesthesia: No Documented by User: Arlene Luis MD 06/06/23 09:19 PMFSH Past Medical History Medical History Back pain Anxiety Cataract Vertigo Leg edema, left Fatty liver Arthritis Trigeminal neuralgia HTN (hypertension) GERD (gastroesophageal reflux disease) Breast cancer PVD (peripheral vascular disease) Family History Family History Mother Cancer Brother Diabetes Surgical History Surgical History History of esophagogastroduodenoscopy (EGD) H/O colonoscopy History of bilateral cataract extraction History of left salpingo-oophorectomy Hx of hysterectomy History of nasal polypectomy Hx of cholecystectomy History of lumpectomy of left breast History of surgical removal of meniscus of knee Social History Social History Household Members Other:: Ex DIL Are you a primary childcare center administrator to a significant other at home: No Do you presently have visiting nurse or other home services: No Alcohol intake: never Patient Tobacco Use Status: Never used Tobacco Have you been hit, kicked, punched, or otherwise hurt by someone within the past year? If so, by whom?: No Advance Directives: No Advance Directives Information Provided: No Advance Directives on File: No Recently lost weight without trying: No Eating poorly because of decreased appetite: No Nutrition Risks: No Nutritional Risk Patient : No : No Poor oral hygiene: Yes (no teeth except 1 on the bottom) Meds Allergies Allergy/AdvReac Type Severity Reaction Status Date / Time aspirin [Aspirin] Allergy Unknown NOSEBLEEDS Verified 05/25/23 09:28 codeine [Codeine] Allergy Unknown N/V Verified 05/25/23 09:28 morphine [MORPHINE] Allergy Unknown NAUSEA/VOMI Verified 05/25/23 09:28 TING Penicillins Allergy Unknown FACIAL Verified 05/25/23 09:28 SWELLING Home Medications Medication Instructions Recorded Confirmed Last Taken Type amlodipine 2.5 mg tablet 2.5 mg PO DAILY 02/03/20 05/26/23 08/30/21 History meclizine 25 mg tablet 25 mg PO DAILY PRN Vertigo 01/27/23 05/26/23 Unknown History sertraline 25 mg tablet 25 mg PO BEDTIME 05/25/23 05/26/23 Unknown History calcium carbonate 500 mg-vitamin 1 tab PO BID 05/26/23 05/26/23 Unknown History D3 3.125 mcg (125 unit) tablet cimetidine 200 mg tablet 200 mg PO DAILY 05/26/23 05/26/23 Unknown History lactobacillus combination no.4 3 3,000 mmu cells PO DAILY 05/26/23 05/26/23 Unknown History billion cell capsule (Probiotic) turmeric 400 mg capsule 400 mg PO DAILY 05/26/23 05/26/23 Unknown History Assessment and Plan Final Anesthetic Review NPO: Yes ASA Class: III Final Preanesthetic Review: No Changes in Pt Med Stat, Meds/Allgs Chart Reviewed, Consent Obtained/Reviewed and Anes Risks/Benef Reviewed Patient Risk: Intermediate Procedure Risk: Intermediate Anesthetic Plan Anesthetic Plan: Spinal and Regional Block Disposition: Standard PACU
[2023-05-27 08:37] LABS: MRSA Nasal PCR NEGATIVE (Negative); SA Nasal PCR NEGATIVE (Negative)
[2023-06-06] VITALS (18 sets, daily range): BP systolic 109–168; BP diastolic 51–87; PULSE 72–110; RESP 12–18; TEMP 36.1–36.8; O2SAT 94–97; BMI 26.6
--- NOTE | ~2023-06-06 | XR_ITS ---
EXAMINATION: XR KNEE, LEFT CLINICAL INFORMATION: Left total knee arthroplasty COMPARISON: 02/09/2023 TECHNIQUE: AP and lateral views of the left knee. FINDINGS: The total knee arthroplasty components are in the usual position and alignment without evidence of loosening or fracture. Postsurgical changes of the overlying soft tissues with anterior row of skin jayashree. XR/XR knee LT 2V IMPRESSION: Standard postoperative appearance of the left total knee arthroplasty.
--- NOTE | 2023-06-06 09:37 | MHC.SHP ---
Pre-Procedural Eval Section A - 24 Hr Update-Section A only Date of Service: 06/06/23 The patient is an INPATIENT: No Changes since office visit: No Cold of Flu in the past 2 weeks, No New Medical Problems, No Changes in Medication and No Patient answered all questions The patient has been examined within 24 hours of the surgical procedure. The History & Physical has been completed within 30 days and I have reviewed it.: Yes Section B - Complete if H&P > 30 days Chief Complaint: Unilateral primary osteoarthritis, left knee Allergies: Allergies Allergy/AdvReac Type Severity Reaction Status Date / Time aspirin [Aspirin] Allergy Unknown NOSEBLEEDS Verified 05/25/23 09:28 codeine [Codeine] Allergy Unknown N/V Verified 05/25/23 09:28 morphine [MORPHINE] Allergy Unknown NAUSEA/VOMI Verified 05/25/23 09:28 TING Penicillins Allergy Unknown FACIAL Verified 05/25/23 09:28 SWELLING Plan I have reviewed the history and physical and performed a pertinent physical examination on my patient. No changes have occurred unless specified. Time Spent With Patient Time: Total time managing care of this patient today ____ minutes.
[2023-06-06] MEDS: Lactated Ringers 1,000 ML 100 ML IVCONT ×2 (10:29→18:41)
--- NOTE | 2023-06-06 11:26 | PHA.MEDREC ---
Pharmacy Consult ? Medication Reconciliation Pharmacy has completed the medication reconciliation.
--- NOTE | 2023-06-06 12:40 | PM.OP ---
Brief Operative Note Date of Service: 06/06/23 Pre-op diagnosis: Left knee OA Post-op diagnosis: same Procedure: Left TKA Implants: [place] Triathlon posterior stabilized PS/29s cemented Surgeon: Adalid Sanches MD Anesthesia: MAC, regional and spinal Was an X Ray Service Engineer used for this Procedure?: Yes X Ray Service Engineer: Mica Tillman Estimated blood loss (mL): 25 Tourniquet time (min): 43 IV fluids (mL): 850 Pathology: other Condition: stable Disposition: PACU
[2023-06-06] MEDS: oxyCODONE HCl Immed Release 5 MG TABLET PO (15:30)
[2023-06-06] MEDS: ondansetron HCL 4 MG/2 ML VIAL IVPUSH (17:44)
[2023-06-06] MEDS: HYDROmorphone HCl 0.5 MG/0.5 ML SYRINGE 0.25 MG IVPUSH ×2 (18:10→21:23)
[2023-06-06] MEDS: ceFAZolin Sodium/Dextrose,Iso 2 GM/50 ML PIGGYBACK IV (18:47)
[2023-06-06 19:27] LABS: Creatinine Clr Calc Pharmacy 52.9; Estimated Glomerular Filt Rate > 60
[2023-06-06] MEDS: oxyCODONE HCl ER 10 MG TAB.ER.12H PO (20:12)
[2023-06-06] MEDS: Calcium + Vitamin D 250 MG TABLET 500 MG PO (20:12)
[2023-06-06] MEDS: Celecoxib 200 MG CAPSULE PO (20:12)
[2023-06-06] MEDS: Docusate Sodium 100 MG CAPSULE PO (20:13)
[2023-06-06] MEDS: Sertraline HCL 25 MG TABLET PO (20:13)
[2023-06-07] MEDS: Lactated Ringers 1,000 ML 100 ML IVCONT (03:21)
[2023-06-07 03:49] VITALS: BP 155/71; PULSE 79; RESP 18; TEMP 36.4; O2SAT 95
[2023-06-07] MEDS: HYDROmorphone HCl 0.5 MG/0.5 ML SYRINGE 0.25 MG IVPUSH (03:53)
[2023-06-07 06:44] VITALS: BP 143/65; PULSE 88; RESP 17; TEMP 36.6; O2SAT 95
[2023-06-07 07:09] LABS: Basophils Percent Auto 0.2 % (0-2); Eosinophils Percent Auto 0.1 % (0-4); Hemoglobin 10.7 g/dl (12.0-16.0); Imm Gran Abs Auto 0.06 X10*3/uL (0.00-0.03); Imm Gran Pct Auto 0.5 % (0.0-0.4); Lymphocytes Absolute Auto 1.6 X10*3/uL (1.2-4.9); Lymphocytes Percent Auto 12.1 % (20-40); MANUAL DIFF FLAG SCAN; Mean Corpuscular HGB Conc 34.5 g/dl (31.0-35.0); Mean Corpuscular Hemoglobin 32.1 pg (27.0-33.0); Mean Corpuscular Volume 93.1 fL (80.0-98.0); Mean Platelet Volume 12.5 fL (9.4-12.3); Monocytes Absolute Auto 2.9 X10*3/uL (0.1-1.2); Monocytes Percent Auto 21.9 % (2-11); Neutrophils Absolute Auto 8.7 x10*3/uL (2.0-8.3); Neutrophils Percent Auto 65.2 % (45-73); Platelet Count 141 X10*3/uL (160-400); Red Blood Count 3.33 X10*6/uL (4.20-5.50); Red Cell Distribution Width 12.5 % (11.0-16.0); SCAN SMEAR FLAG 1; White Blood Count 13.3 X10*3/uL (4.8-10.8)
[2023-06-07 07:19] LABS: Anion Gap 12 (12-20); Blood Urea Nitrogen 15 mg/dL (9-16); Carbon Dioxide 25 mmol/L (22-29); Chloride 104 mmol/L (96-108); Creatinine Clr Calc Pharmacy 53.6; Estimated Glomerular Filt Rate > 60; Glucose Fasting 120 mg/dL (60-99); Potassium 4.2 mmol/L (3.3-5.1); Sodium 137 mmol/L (135-145)
--- NOTE | 2023-06-07 07:50 | P.PNOP_ITS ---
Subjective Subjective Date of Service: 06/07/23 Interval history: POD 1 s/p LT TKA no overnight events c/o nausea with pain meds denies cp, sob, palpitations Physical Exam Vital Signs: Vital Signs: Last Vital Signs Temp 98 F 06/07/23 06:44 Pulse 88 06/07/23 06:44 Resp 17 06/07/23 06:44 BP 143/65 H 06/07/23 06:44 Pulse Ox 95 06/07/23 06:44 O2 Del Method Nasal Cannula 06/07/23 06:44 O2 Flow Rate 2 06/07/23 06:44 BMI result Body Mass Index 26.6 Const: General: cooperative, healthy appearing and no acute distress Resp: Effort & Inspection: normal respiratory effort and able to speak in complete sentences Cardio: Rate: regular rate Peripheral pulses: Peripheral pulses 2+ throughout GI: Palpation (GI): Soft to palpation Skin: General skin exam: no rashes or lesions noted Extrem: Other: incision clean dry and intact. Cristiane intact. No erythema or joint effusion. Calf supple nontender. Neurovascularly intact. Procedures Date of Service Date of Service: 06/07/23 Progress Note: A&P Assessment and plan (1) Status post total left knee replacement: Status: Acute Assessment and Plan: * Continue pain mgmnt * Begin Aspirin for dvt ppx * begin PT for LT TKA * Dispo planning-Pending PT eval, pain mgmnt Need for continued inpatient stay: pain control and PT eval Time Spent With Patient Time: Total time managing care of this patient today ____ minutes. Quality Stroke Does the patient have a stroke diagnosis?: No VTE Prior VTE?: No VTE Risk Level:: Surgical - very high VTE Device Contraindication: N/A - Device Ordered VTE Drug Contraindication: N/A - Med Ordered
[2023-06-07 08:32] LABS: SLIDE REVIEW VERIFIED
[2023-06-07] MEDS: Calcium + Vitamin D 250 MG TABLET 500 MG PO ×2 (08:32→20:32)
[2023-06-07] MEDS: Docusate Sodium 100 MG CAPSULE PO ×2 (08:33→20:33)
[2023-06-07] MEDS: oxyCODONE HCl ER 10 MG TAB.ER.12H PO ×2 (08:34→20:33)
[2023-06-07] MEDS: Famotidine 20 MG TABLET 10 MG PO (08:34)
[2023-06-07] MEDS: oxyCODONE HCl Immed Release 5 MG TABLET PO (08:35)
[2023-06-07] MEDS: Celecoxib 200 MG CAPSULE PO ×2 (08:35→20:33)
--- NOTE | 2023-06-07 08:40 | MHC.CM.PN ---
Addendum entered by Fatemeh Dailey 06/07/23 08:44: HCP ON FILE. Original Note: IMM 05/09/23 Female 87 S/P TKA She lives by herself in an apartment. Her dtr lives across the [place]. She is independent with functional mobility. She is using a walker. Her preference for homecare is [facility]. A referral has been sent. DP Home with [facility]. She will arrange for transportation home.
--- NOTE | 2023-06-07 08:56 | HO.POSTANES ---
Post Anesthesia Evaluation Post Anesthesia Evaluation Date of Service: 06/07/23 Vital Signs: Vital Signs Temp Pulse Resp BP Pulse Ox O2 Del Method O2 Flow Rate 06/07/23 06:44 98 F 88 17 143/65 H 95 Nasal Cannula 2 06/07/23 03:49 97.5 F 79 18 155/71 H 95 Nasal Cannula 2 Anesthesia: Spinal and Nerve Block Mental Status: Awake Pain Control: Satisfactory Nausea/Vomiting: Mild (with pain meds) Hydration: Adequate Anesthesia-Related Issues: No Anes. Related Issues
[2023-06-07] MEDS: Enoxaparin Sodium 40 MG/0.4 ML SYRINGE SUBCUT (11:07)
--- NOTE | 2023-06-07 11:40 | PC.NURSE ---
Pt receiving Lovenox for DVT prophylaxis, This RN went over self adinistration teaching with Pt, Pt verbalized understanding of self administration of medication and states her daughter will be giving the Pt the injection. Pt had no further questions at this time.
[2023-06-07] MEDS: amLODIPine Besylate 2.5 MG TABLET PO (15:06)
[2023-06-07] MEDS: ondansetron HCL 4 MG/2 ML VIAL IVPUSH (15:06)
[2023-06-07 15:07] VITALS: BP 154/67; PULSE 94; RESP 18; TEMP 36.4; O2SAT 92
[2023-06-07] MEDS: 0.9 % Sodium Chloride Flush 3 ML SYRINGE IVFLUSH ×2 (15:09→20:34)
--- NOTE | 2023-06-07 15:20 | HO.PM.IMCN ---
History of Present Illness Data of Consult Service Date: 06/07/23 Primary Care Provider: Nora Gonzales MD [facility] Reason for consult: medical management 87 year old female with chronic medical issues including HTN, GERD and OA. She underwent Left TKA today and is doing well post op. Her pain seems to be well controlled, she has some nausea but no vomitting. Her blood pressure seems a bit high righ at 154/67. She has no shortness of breath, chest pain or dizziness Review of Systems Review of Systems: Gen: no fever Resp: no sob, no cough CV: no chest, no SORENSEN, no leg edema GI: No n/v, no abd pain Neuro: No confusion MSK; pain in the left knee Yes all other systems are reviewed and are negative PMFSH Medical History Back pain Anxiety Cataract Vertigo Leg edema, left Fatty liver Arthritis Trigeminal neuralgia HTN (hypertension) GERD (gastroesophageal reflux disease) Breast cancer PVD (peripheral vascular disease) Family History Mother Cancer Brother Diabetes Surgical History History of esophagogastroduodenoscopy (EGD) H/O colonoscopy History of bilateral cataract extraction History of left salpingo-oophorectomy Hx of hysterectomy History of nasal polypectomy Hx of cholecystectomy History of lumpectomy of left breast History of surgical removal of meniscus of knee Social History Household Members: Children Household Members Other:: Ex DIL Housing: Apartment Are you a primary acute care nursing assistant to a significant other at home: No Do you presently have visiting nurse or other home services: No Alcohol intake: never Patient Tobacco Use Status: Never used Tobacco Use of substances other than those prescribed or required for medical reasons: No Currently Displaying Signs/Symptoms of Drug Intoxication Withdrawal: No Have you been hit, kicked, punched, or otherwise hurt by someone within the past year? If so, by whom?: No Do you feel safe in your current relationship?: No Current Relationship Is there a partner from a previous relationship who is making you feel unsafe now?: No Are you made to feel afraid or neglected: No Advance Directives: No Advance Directives Information Provided: No Advance Directives on File: No Do you have thoughts of harming others: None Do you have a plan to hurt others: No Plan Recently lost weight without trying: No Eating poorly because of decreased appetite: No Nutrition Risks: No Nutritional Risk Patient : No : No Poor oral hygiene: No Meds Allergies Allergy/AdvReac Type Severity Reaction Status Date / Time aspirin [Aspirin] Allergy Unknown NOSEBLEEDS Verified 06/06/23 09:48 codeine [Codeine] Allergy Unknown N/V Verified 06/06/23 09:48 morphine [MORPHINE] Allergy Unknown NAUSEA/VOMI Verified 06/06/23 09:48 TING Penicillins Allergy Unknown FACIAL Verified 06/06/23 09:48 SWELLING Active Medications: Current Medications Acetaminophen (Acetaminophen 325 Mg Tablet) 650 mg PO Q6H PRN PRN Reason: Pain, Mild (Pain Scale 1-3) Amlodipine Besylate (Amlodipine Besylate 2.5 Mg Tablet) 2.5 mg PO DAILY [facility]; Protocol Last Admin: 06/07/23 15:06 Dose: 2.5 mg Calcium Carbonate/Cholecalciferol (Calcium + Vitamin D 250 Mg Tablet) 500 mg PO BID [facility] Last Admin: 06/07/23 08:32 Dose: 500 mg Celecoxib (Celecoxib 200 Mg Capsule) 200 mg PO BID [facility] Last Admin: 06/07/23 08:35 Dose: 200 mg Docusate Sodium (Docusate Sodium 100 Mg Capsule) 100 mg PO BID [facility] Last Admin: 06/07/23 08:33 Dose: 100 mg Enoxaparin Sodium (Enoxaparin Sodium 40 Mg/0.4 Ml Syringe) 40 mg SUBCUT Q24H [facility] Last Admin: 06/07/23 11:07 Dose: 40 mg Famotidine (Famotidine 20 Mg Tablet) 10 mg PO DAILY [facility] Last Admin: 06/07/23 08:34 Dose: 10 mg Hydromorphone HCl (Hydromorphone Hcl 0.5 Mg/0.5 Ml Syringe) 0.25 mg IVPUSH Q4H PRN; Protocol PRN Reason: Pain, Severe (Pain Scale 7-10) Last Admin: 06/07/23 03:53 Dose: 0.25 mg Meclizine HCl (Meclizine Hcl 25 Mg Tablet) 25 mg PO DAILY PRN PRN Reason: Vertigo Ondansetron HCl (Ondansetron Hcl 4 Mg/2 Ml Vial) 4 mg IVPUSH Q8H PRN PRN Reason: Nausea and Vomiting Last Admin: 06/07/23 15:06 Dose: 4 mg Oxycodone HCl (Oxycodone Hcl Immed Release 5 Mg Tablet) 5 mg PO Q4H PRN PRN Reason: Pain, Moderate(Pain Scale 4-6) Last Admin: 06/07/23 08:35 Dose: 5 mg Oxycodone HCl (Oxycodone Hcl Er 10 Mg Tab.Er.12h) 10 mg PO BID [facility] Last Admin: 06/07/23 08:34 Dose: 10 mg Sertraline HCl (Sertraline Hcl 25 Mg Tablet) 25 mg PO BEDTIME [facility] Last Admin: 06/06/23 20:13 Dose: 25 mg Sodium Chloride (0.9 % Sodium Chloride Flush 3 Ml Syringe) 3 ml IVFLUSH QSHIFT [facility] Last Admin: 06/07/23 15:09 Dose: 3 ml Home Medications Medication Instructions Recorded Confirmed Last Taken Type amlodipine 2.5 mg tablet 2.5 mg PO DAILY 02/03/20 05/26/23 06/06/23 06:00 History meclizine 25 mg tablet 25 mg PO DAILY PRN Vertigo 01/27/23 05/26/23 Unknown History sertraline 25 mg tablet 25 mg PO BEDTIME 05/25/23 05/26/23 06/05/23 History calcium carbonate 500 mg-vitamin 1 tab PO BID 05/26/23 05/26/23 06/05/23 History D3 3.125 mcg (125 unit) tablet cimetidine 200 mg tablet 200 mg PO DAILY 05/26/23 05/26/23 06/06/23 06:00 History lactobacillus combination no.4 3 3,000 mmu cells PO DAILY 05/26/23 05/26/23 06/05/23 History billion cell capsule (Probiotic) turmeric 400 mg capsule 400 mg PO DAILY 05/26/23 05/26/23 06/05/23 History Vitamin B-12 06/06/23 05/30/23 History Physical Exam Vital Signs and Narrative: Vital Signs: Last Vital Signs Temp 97.5 F 06/07/23 15:07 Pulse 94 06/07/23 15:07 Resp 18 06/07/23 15:07 BP 154/67 H 06/07/23 15:07 Pulse Ox 92 06/07/23 15:07 O2 Del Method Room Air 06/07/23 15:07 O2 Flow Rate 2 06/07/23 06:44 BMI result Body Mass Index 26.6 Results Labs 06/07/23 06:05 06/07/23 06:05 Labs: Laboratory Results - last 24 hr 06/06/23 06/07/23 18:52 06:05 MCV 93.1 MCH 32.1 MCHC 34.5 RDW 12.5 Plt Count 141 L D MPV 12.5 H Immature Gran % (Auto) 0.5 H Neut % (Auto) 65.2 Lymph % (Auto) 12.1 L Harper % (Auto) 21.9 H Eos % (Auto) 0.1 Baso % (Auto) 0.2 Lymph # (Auto) 1.6 Harper # (Auto) 2.9 H Eos # (Auto) 0.0 Baso # (Auto) 0.0 Abs Immat Gran (auto) 0.06 H Absolute Neuts (auto) 8.7 H Absolute Nucleated RBC 0.000 Nucleated RBC % (auto) 0.0 Smear Tech's Comments VERIFIED Anion Gap 12 Estim Creat Clear Calc 52.9 53.6 Estimated GFR > 60 > 60 Fasting Glucose 120 H Calcium 9.0 D Imaging Radiologist's Impressions: Impressions Knee X-Ray 06/06/23 14:38 IMPRESSION: Standard postoperative appearance of the left total knee arthroplasty. Assessment and Plan (1) HTN (hypertension): Qualifiers: Hypertension type: primary hypertension Qualified Code(s): I10 - Essential (primary) hypertension Status: Acute (2) Primary osteoarthritis of knees, bilateral: Status: Acute Plan 87 year old female with chronic medical issues including HTN, GERD and OA. She underwent Left TKA today and is doing well post op. Her pain seems to be well controlled, she has some nausea but no vomitting. Her blood pressure seems a bit high righ at 154/67. s/p LTR, pain control, dvt prophylaxis and further management per surgery HTN--BP is a bit high and could be related to pain, resume Norvasc Continue chronic meds per med rec dvt prophylaxis lovenox will follow
[2023-06-07 19:06] VITALS: BP 150/66; PULSE 94; RESP 16; TEMP 36.6; O2SAT 92
[2023-06-07] MEDS: Sertraline HCL 25 MG TABLET PO (20:33)
[2023-06-08 04:00] VITALS: BP 121/66; PULSE 83; RESP 16; TEMP 36.6; O2SAT 93
[2023-06-08 06:36] LABS: PLT ABN DIST 1
[2023-06-08 06:38] LABS: Basophils Percent Auto 0.4 % (0-2); Eosinophils Absolute Auto 0.3 X10*3/uL (0.0-0.4); Hematocrit 27.7 % (37.0-47.0); Hemoglobin 9.6 g/dl (12.0-16.0); Imm Gran Abs Auto 0.02 X10*3/uL (0.00-0.03); Imm Gran Pct Auto 0.2 % (0.0-0.4); Lymphocytes Absolute Auto 1.5 X10*3/uL (1.2-4.9); Lymphocytes Percent Auto 18.4 % (20-40); MANUAL DIFF FLAG SCAN; Mean Corpuscular HGB Conc 34.7 g/dl (31.0-35.0); Mean Corpuscular Hemoglobin 31.9 pg (27.0-33.0); Monocytes Absolute Auto 1.9 X10*3/uL (0.1-1.2); Monocytes Percent Auto 22.8 % (2-11); Neutrophils Absolute Auto 4.6 x10*3/uL (2.0-8.3); Neutrophils Percent Auto 55.2 % (45-73); Platelet Count 117 X10*3/uL (160-400); Red Blood Count 3.01 X10*6/uL (4.20-5.50); Red Cell Distribution Width 12.7 % (11.0-16.0); SCAN SMEAR FLAG 1; White Blood Count 8.4 X10*3/uL (4.8-10.8)
[2023-06-08 06:51] LABS: Anion Gap 9 (12-20); Blood Urea Nitrogen 14 mg/dL (9-16); Calcium 8.8 mg/dL (8.4-10.2); Carbon Dioxide 28 mmol/L (22-29); Chloride 102 mmol/L (96-108); Creatinine Clr Calc Pharmacy 58.6; Estimated Glomerular Filt Rate > 60; Glucose Fasting 96 mg/dL (60-99); Potassium 4.2 mmol/L (3.3-5.1); Sodium 135 mmol/L (135-145)
[2023-06-08 07:29] VITALS: BP 141/67; PULSE 95; RESP 16; TEMP 36.3; O2SAT 90
[2023-06-08 07:34] LABS: SLIDE REVIEW VERIFIED
--- NOTE | 2023-06-08 08:12 | HO.PM.IMPN ---
Subjective Subjective Date of Service: 06/08/23 Interval History: f/u on L TKR, post op day 1, doing well, pain seem controlled Physical Exam Vital Signs: Vital Signs: Last Vital Signs Temp 97.4 F 06/08/23 07:29 Pulse 95 06/08/23 07:29 Resp 16 06/08/23 07:29 BP 141/67 H 06/08/23 07:29 Pulse Ox 90 L 06/08/23 07:29 O2 Del Method Room Air 06/08/23 07:29 O2 Flow Rate 2 06/07/23 06:44 BMI result Body Mass Index 26.6 General: AO X 3, no acute distress Resp: CTA bilateral CVS: S1,S2,RRR GI: +BS, NT, no distention Skin: No rash, knee dressing intact Neuro: motor grossly intact Psych: appropriate affect Objective Data Active Medications Acetaminophen (Acetaminophen 325 Mg Tablet) 650 mg PO Q6H PRN PRN Reason: Pain, Mild (Pain Scale 1-3) Amlodipine Besylate (Amlodipine Besylate 2.5 Mg Tablet) 2.5 mg PO DAILY [facility]; Protocol Last Admin: 06/07/23 15:06 Dose: 2.5 mg Documented By: DORENE Calcium Carbonate/Cholecalciferol (Calcium + Vitamin D 250 Mg Tablet) 500 mg PO BID [facility] Last Admin: 06/07/23 20:32 Dose: 500 mg Documented By: MICHAEL Celecoxib (Celecoxib 200 Mg Capsule) 200 mg PO BID [facility] Last Admin: 06/07/23 20:33 Dose: 200 mg Documented By: MICHAEL Docusate Sodium (Docusate Sodium 100 Mg Capsule) 100 mg PO BID [facility] Last Admin: 06/07/23 20:33 Dose: 100 mg Documented By: MICHAEL Enoxaparin Sodium (Enoxaparin Sodium 40 Mg/0.4 Ml Syringe) 40 mg SUBCUT Q24H [facility] Last Admin: 06/07/23 11:07 Dose: 40 mg Documented By: DORENE Famotidine (Famotidine 20 Mg Tablet) 10 mg PO DAILY [facility] Last Admin: 06/07/23 08:34 Dose: 10 mg Documented By: DORENE Hydromorphone HCl (Hydromorphone Hcl 0.5 Mg/0.5 Ml Syringe) 0.25 mg IVPUSH Q4H PRN; Protocol PRN Reason: Pain, Severe (Pain Scale 7-10) Last Admin: 06/07/23 03:53 Dose: 0.25 mg Documented By: EVER Meclizine HCl (Meclizine Hcl 25 Mg Tablet) 25 mg PO DAILY PRN PRN Reason: Vertigo Ondansetron HCl (Ondansetron Hcl 4 Mg/2 Ml Vial) 4 mg IVPUSH Q8H PRN PRN Reason: Nausea and Vomiting Last Admin: 06/07/23 15:06 Dose: 4 mg Documented By: DORENE Oxycodone HCl (Oxycodone Hcl Immed Release 5 Mg Tablet) 5 mg PO Q4H PRN PRN Reason: Pain, Moderate(Pain Scale 4-6) Last Admin: 06/07/23 08:35 Dose: 5 mg Documented By: DORENE Oxycodone HCl (Oxycodone Hcl Er 10 Mg Tab.Er.12h) 10 mg PO BID [facility] Last Admin: 06/07/23 20:33 Dose: 10 mg Documented By: MICHAEL Sertraline HCl (Sertraline Hcl 25 Mg Tablet) 25 mg PO BEDTIME [facility] Last Admin: 06/07/23 20:33 Dose: 25 mg Documented By: MICHAEL Sodium Chloride (0.9 % Sodium Chloride Flush 3 Ml Syringe) 3 ml IVFLUSH QSHIFT [facility] Last Admin: 06/08/23 07:30 Dose: Not Given Documented By: ROSAMARIA Non-Admin Reason: See Note Labs 06/08/23 05:45 06/08/23 05:45 Labs: Laboratory Results - last 24 hr 06/07/23 06/08/23 06:05 05:45 MCV 92.0 MCH 31.9 MCHC 34.7 RDW 12.7 Plt Count 117 L MPV 13.0 H Immature Gran % (Auto) 0.5 H 0.2 Neut % (Auto) 65.2 55.2 Lymph % (Auto) 12.1 L 18.4 L Gentry % (Auto) 21.9 H 22.8 H Eos % (Auto) 0.1 3.0 Baso % (Auto) 0.2 0.4 Lymph # (Auto) 1.6 1.5 Gentry # (Auto) 2.9 H 1.9 H Eos # (Auto) 0.0 0.3 Baso # (Auto) 0.0 0.0 Abs Immat Gran (auto) 0.06 H 0.02 Absolute Neuts (auto) 8.7 H 4.6 Absolute Nucleated RBC 0.000 0.000 Nucleated RBC % (auto) 0.0 0.0 Smear Tech's Comments VERIFIED VERIFIED Anion Gap 9 L Estim Creat Clear Calc 58.6 Estimated GFR > 60 Fasting Glucose 96 Calcium 8.8 Assessment and Plan (1) Status post total left knee replacement: Status: Acute (2) HTN (hypertension): Status: Acute (3) Primary osteoarthritis of knees, bilateral: Status: Acute Plan 87 year old female with chronic medical issues including HTN, GERD and OA. She underwent Left TKA today and is doing well post op. Her pain seems to be well controlled, she has some nausea but no vomitting. Her blood pressure seems a bit high righ at 154/67. s/p LTR, pain control, dvt prophylaxis and further management per surgery HTN--BP in good range, continue Noravasc mood disorder sertraline dvt prophylaxis lovenox medical issues stable, and will follow on PRN basis Quality Stroke Does the patient have a stroke diagnosis?: No VTE Prior VTE?: No VTE Risk Level:: Surgical - very high VTE Device Contraindication: N/A - Device Ordered VTE Drug Contraindication: N/A - Med Ordered
[2023-06-08] MEDS: Calcium + Vitamin D 250 MG TABLET 500 MG PO ×2 (09:23→20:28)
[2023-06-08] MEDS: amLODIPine Besylate 2.5 MG TABLET PO (09:23)
[2023-06-08] MEDS: Famotidine 20 MG TABLET 10 MG PO (09:23)
[2023-06-08] MEDS: Docusate Sodium 100 MG CAPSULE PO ×2 (09:23→20:28)
[2023-06-08] MEDS: oxyCODONE HCl ER 10 MG TAB.ER.12H PO ×2 (09:23→20:28)
[2023-06-08] MEDS: HYDROmorphone HCl 0.5 MG/0.5 ML SYRINGE 0.25 MG IVPUSH ×2 (09:23→20:27)
[2023-06-08] MEDS: Celecoxib 200 MG CAPSULE PO ×2 (09:24→20:28)
[2023-06-08] MEDS: Enoxaparin Sodium 40 MG/0.4 ML SYRINGE SUBCUT (11:43)
--- NOTE | 2023-06-08 14:37 | MHC.CM.PN ---
P.T. RECOMMENDS STR. CM MET WITH PT TO OBTAIN HER CHOICES 1. WENDIE REYNOLDS 2Yousif POST MTN REFERRALS SENT CM WILL CONTINUE TO FOLLOW FOR ANY CHANGE TO DC PLAN.
--- NOTE | 2023-06-08 15:16 | P.PNOP_ITS ---
Subjective Subjective Date of Service: 06/08/23 Interval history: POD 2 s/p LT TKA no overnight events denies cp, sob, palpitations Physical Exam Vital Signs: Vital Signs: Last Vital Signs Temp 97.4 F 06/08/23 07:29 Pulse 95 06/08/23 07:29 Resp 16 06/08/23 07:29 BP 141/67 H 06/08/23 07:29 Pulse Ox 90 L 06/08/23 07:29 O2 Del Method Room Air 06/08/23 07:29 O2 Flow Rate 2 06/07/23 06:44 BMI result Body Mass Index 26.6 Const: General: cooperative, healthy appearing and no acute distress Resp: Effort & Inspection: normal respiratory effort and able to speak in complete sentences Cardio: Rate: regular rate Peripheral pulses: Peripheral pulses 2+ throughout GI: Palpation (GI): Soft to palpation Skin: General skin exam: no rashes or lesions noted Extrem: Other: incision clean dry and intact. Chatom intact. No erythema or joint effusion. Calf supple nontender. Neurovascularly intact. Procedures Date of Service Date of Service: 06/08/23 Progress Note: A&P Assessment and plan (1) Status post total left knee replacement: Status: Acute Assessment and Plan: * Continue pain mgmnt * Aspirin for dvt ppx * PT for LT TKA * Dispo planning-Pending PT eval, pain mgmnt Need for continued inpatient stay: rehab placement Time Spent With Patient Time: Total time managing care of this patient today ____ minutes. Quality Stroke Does the patient have a stroke diagnosis?: No VTE Prior VTE?: No VTE Risk Level:: Surgical - very high VTE Device Contraindication: N/A - Device Ordered VTE Drug Contraindication: N/A - Med Ordered
[2023-06-08 15:27] VITALS: BP 115/56; PULSE 79; RESP 18; TEMP 36.1; O2SAT 91
[2023-06-08 19:27] VITALS: BP 145/67; PULSE 93; RESP 18; TEMP 37; O2SAT 91
[2023-06-08] MEDS: 0.9 % Sodium Chloride Flush 3 ML SYRINGE IVFLUSH (20:28)
[2023-06-08] MEDS: Sertraline HCL 25 MG TABLET PO (20:28)
[2023-06-09 03:17] VITALS: BP 134/63; PULSE 78; RESP 16; TEMP 35.9; O2SAT 93
--- NOTE | 2023-06-09 06:03 | PC.NURSE ---
throughout the night pt went to br tiwce with assist, while she's walking, she dripping the urine on the floor, asked pain scale. she said no pain at second time. pt slept most of night. only once c/o pain, provided dilaudid by Emar. no complication notice. will continue to monitor.
[2023-06-09 06:43] LABS: Basophils Percent Auto 0.5 % (0-2); Eosinophils Absolute Auto 0.5 X10*3/uL (0.0-0.4); Eosinophils Percent Auto 8.2 % (0-4); Hematocrit 28.7 % (37.0-47.0); Hemoglobin 9.8 g/dl (12.0-16.0); Imm Gran Abs Auto 0.02 X10*3/uL (0.00-0.03); Imm Gran Pct Auto 0.3 % (0.0-0.4); Lymphocytes Absolute Auto 1.9 X10*3/uL (1.2-4.9); MANUAL DIFF FLAG SCAN; Mean Corpuscular HGB Conc 34.1 g/dl (31.0-35.0); Mean Corpuscular Hemoglobin 31.7 pg (27.0-33.0); Mean Corpuscular Volume 92.9 fL (80.0-98.0); Mean Platelet Volume 12.9 fL (9.4-12.3); Monocytes Absolute Auto 1.3 X10*3/uL (0.1-1.2); Monocytes Percent Auto 21.2 % (2-11); Neutrophils Absolute Auto 2.5 x10*3/uL (2.0-8.3); Neutrophils Percent Auto 39.8 % (45-73); Platelet Count 119 X10*3/uL (160-400); Red Blood Count 3.09 X10*6/uL (4.20-5.50); Red Cell Distribution Width 12.7 % (11.0-16.0); SCAN SMEAR FLAG 1; White Blood Count 6.2 X10*3/uL (4.8-10.8)
[2023-06-09 06:56] LABS: Anion Gap 11 (12-20); Blood Urea Nitrogen 14 mg/dL (9-16); Calcium 8.8 mg/dL (8.4-10.2); Carbon Dioxide 26 mmol/L (22-29); Chloride 101 mmol/L (96-108); Creatinine Clr Calc Pharmacy 60.4; Estimated Glomerular Filt Rate > 60; Glucose Fasting 89 mg/dL (60-99); Potassium 4.4 mmol/L (3.3-5.1); Sodium 134 mmol/L (135-145)
[2023-06-09 07:24] VITALS: BP 150/67; PULSE 79; RESP 16; TEMP 36.8; O2SAT 92
[2023-06-09] MEDS: Calcium + Vitamin D 250 MG TABLET 500 MG PO (07:25)
[2023-06-09] MEDS: Famotidine 20 MG TABLET 10 MG PO (07:25)
[2023-06-09] MEDS: Docusate Sodium 100 MG CAPSULE PO (07:26)
[2023-06-09] MEDS: Celecoxib 200 MG CAPSULE PO (07:26)
[2023-06-09] MEDS: 0.9 % Sodium Chloride Flush 3 ML SYRINGE IVFLUSH (07:26)
[2023-06-09] MEDS: oxyCODONE HCl ER 10 MG TAB.ER.12H PO (07:26)
[2023-06-09] MEDS: amLODIPine Besylate 2.5 MG TABLET PO (07:26)
[2023-06-09 08:20] LABS: SLIDE REVIEW VERIFIED
--- NOTE | 2023-06-09 08:26 | PM.DS ---
DS: Providers Provider Date of Service: 06/09/23 Date of admission: 06/06/23 10:02 Primary care physician: Nora Gonzales MD Consults: 06/06/23 18:23 Consult to Hospitalist Routine Comment: Consulting Provider: Hospitalist Reason For Exam: medical management DS: Diagnosis Discharge Diagnosis (1) Status post total left knee replacement: Status: Acute DS: Summary Hospital Course Hospital Course: The patient underwent a successful Left total knee arthroplasty on 06/05/[address] Sanches, was transferred to PACU and then to the floor to recover. During their stay, their vitals were stable, afebrile at 98.2 . Labs were unremarkable, H/H 9.8/28.7 . POD 1 he was started on Lovenox for DVT ppx, they also received Physical Therapy services twice a day. Physical therapy should include gait training, ROM to tolerance and quad strength. He is WBAT. Prior to discharge, his dressing was changed, incision clean dry and intact, new Aquacel dressing applied. The Aquacel dressing should remain intact and dry at all times. Any concerns with the dressing, please contact orthopedic office. No showering. The plan is to be discharged to [facility] Time Attestation Discharge Coordination Time (in mins): 30 min Quality: Safe Use of Opioids Does Pt have an Active Cancer Diagnosis on the Problem List?: No Quality: Stroke Does the patient have a stroke diagnosis?: No Physical Exam Vital Signs: Vital Signs: Last Vital Signs Temp 98.2 F 06/09/23 07:24 Pulse 79 06/09/23 07:24 Resp 16 06/09/23 07:24 BP 150/67 H 06/09/23 07:24 Pulse Ox 92 06/09/23 07:24 O2 Del Method Room Air 06/09/23 07:24 O2 Flow Rate 2 06/07/23 06:44 BMI result Body Mass Index 26.6 Const: General: cooperative, healthy appearing and no acute distress Resp: Effort & Inspection: normal respiratory effort and able to speak in complete sentences Cardio: Rate: regular rate Peripheral pulses: Peripheral pulses 2+ throughout GI: Palpation (GI): Soft to palpation Skin: General skin exam: no rashes or lesions noted Extrem: Other: incision clean dry and intact. Cristiane intact. No erythema or joint effusion. Calf supple nontender. Neurovascularly intact. DS: Data Data Completed and Pending Pending studies at discharge: Pending at discharge 06/06/23 11:43 Surgical [PTH] Routine Labs on day of discharge: Laboratory Results - last 24 hr 06/09/23 05:43 WBC 6.2 RBC 3.09 L Hgb 9.8 L Hct 28.7 L MCV 92.9 MCH 31.7 MCHC 34.1 RDW 12.7 Plt Count 119 L MPV 12.9 H Immature Gran % (Auto) 0.3 Neut % (Auto) 39.8 L Lymph % (Auto) 30.0 Cannon % (Auto) 21.2 H Eos % (Auto) 8.2 H Baso % (Auto) 0.5 Lymph # (Auto) 1.9 Cannon # (Auto) 1.3 H Eos # (Auto) 0.5 H Baso # (Auto) 0.0 Abs Immat Gran (auto) 0.02 Absolute Neuts (auto) 2.5 Absolute Nucleated RBC 0.000 Nucleated RBC % (auto) 0.0 Smear Tech's Comments VERIFIED Sodium 134 L Potassium 4.4 Chloride 101 Carbon Dioxide 26 Anion Gap 11 L BUN 14 Creatinine 0.63 Estim Creat Clear Calc 60.4 Estimated GFR > 60 Fasting Glucose 89 Calcium 8.8 Discharge Plan Discharge Anticipated Discharge Date/Time: 06/09/23 08:30 Patient Disposition: Home Health Service Discharge Diagnosis: LT TKA Referrals: Mica Tillman PA-C [[employer]ician [employer]] - 2 Weeks (06/22/23 13:30 [facility] Mica Tillman PA-C) Discharge Medications: New celecoxib 200 mg Capsule 200 mg PO BID 30 Days Qty: 60 0RF acetaminophen 325 mg Tablet 650 mg PO Q6H PRN (Reason: Pain, Mild (Pain Scale 1-3)) 30 Days Qty: 240 0RF docusate sodium 100 mg Capsule 100 mg PO BID 14 Days Qty: 28 0RF oxycodone 5 mg Tablet 5 mg PO Q4H PRN (Reason: Pain, Moderate(Pain Scale 4-6)) 7 Days Qty: 42 0RF Rx Instructions: Partial Fill upon patient request. enoxaparin 40 mg/0.4 mL Syringe 40 mg subcut Q24H 42 Days Qty: 16.8 0RF Continued calcium carbonate-vitamin D3 500 mg-3.125 mcg (125 unit) Tablet 1 tab PO BID Probiotic 3 billion cell Capsule 3,000 mmu cells PO DAILY Rx Instructions: administer with a meal turmeric 400 mg Capsule 400 mg PO DAILY cimetidine 200 mg Tablet 200 mg PO DAILY Rx Instructions: administer with meals Vitamin B-12 amlodipine 2.5 mg tablet 2.5 mg PO DAILY sertraline 25 mg tablet 25 mg PO BEDTIME meclizine 25 mg tablet 25 mg PO DAILY PRN (Reason: Vertigo) Discharge Orders: Discharge Order (Routine); Ordered 06/09/23 Ordered By: Mica Tillman Diet: Regular diet Activity on Discharge: Use cane or walker Stand Alone Forms: Patient Portal Discharge page Care Plan Goals: Restore function of joint Health Concerns: none Plan of Treatment: Physical Therapy Pain management DVT prophylaxis Assessment: Physical Therapy for Total knee arthroplasty: WBAT, gait training, ROM 0-12, quad strength Limit stair climbing No showering, no tub bath-keep dressing clean, dry and intact No driving x6 weeks Continue Aspirin twice a day x 6 weeks Follow up with [facility] in 2 weeks: 06/21/2412:[facility] Orthopedic SurgeonsMiac Tillman PA-C
[2023-06-09 09:18] VITALS: BP 150/67; PULSE 79
--- NOTE | 2023-06-09 10:07 | MHC.CM.PN ---
Addendum entered by Vivien Gomez 06/09/23 11:26: [facility] REQUESTS A TIME CHANGE FOR TRANSFER TO 4 PM, [facility]ACE[facility] AND NURSE ALERTED. DAUGHTER TIMOTHY UPDATED. Original Note: DP:PT HAS BEEN MEDICALLY CLEARED FOR DC TO STR AT [facility]. RN AWARE. MESSAGE LEFT FOR JUDIE AGUIRRE TO RETURN CALL PER PERMISSION OF PT TO NOTIFY OF TRANSFER TO [facility]. BLS TRANSPORT BOOKED FOR 1:30 PM VIA [facility]. CENTER UPDATED.
--- NOTE | 2023-06-09 12:49 | PM.EVENT ---
Event Note Date of Service: 06/09/23 Event Note: pt seen/examined, labs, meds and vitals reivewed. She is doing well, stays she will be oing to rehab. Exam unchanged. A/P unchanged, medically ok to dc time spent 15 minutes Time Spent With Patient Time: Total time managing care of this patient today ____ minutes.
[2023-06-09] MEDS: Enoxaparin Sodium 40 MG/0.4 ML SYRINGE SUBCUT (13:18)
[2023-06-09] MEDS: HYDROmorphone HCl 0.5 MG/0.5 ML SYRINGE 0.25 MG IVPUSH (13:19)
[2023-06-09 15:00] VITALS: BP 129/61; PULSE 82; RESP 15; TEMP 36.1; O2SAT 94
--- NOTE | 2023-06-16 14:40 | W.PM.OPN ---
Operative Note Operative Note Date of Service: 06/06/23 Narrative: Date of Service: 06/06/23 Pre-op diagnosis: Left knee OA Post-op diagnosis: same Procedure: Left TKA Implants: Arron Triathlon posterior stabilized PS/29s cemented Surgeon: Adalid Sanches MD Anesthesia: MAC, regional and spinal Was an [employer] Ebs Consultant used for this Procedure?: Yes [employer] Ebs Consultant: Mica Tillman Estimated blood loss (mL): 25 Tourniquet time (min): 43 IV fluids (mL): 850 Pathology: other Condition: stable Disposition: PACU Procedure in detail: The patient was brought to the operating room and prepped and draped in standard sterile fashion. A time-out was called to identify proper site proper procedure proper surgeon and IV antibiotics were administered. 1 g of IV tranexamic acid was administered. I began by making a midline incision to the retinaculum and performed a medial parapatellar arthrotomy. The patella was translated laterally and the knee was flexed up. The lateral compartment was eburnated. I performed a small medial peel and resected the infrapatellar fat pad. Armstrong's line was then used to drill my intramedullary femoral guide and my distal femur cut of 10 mm was made in 5 degrees of valgus while protecting the soft tissues. I then measured a # 3 femur and placed my cutting guide and made my anterior posterior and chamfer cuts protecting the soft tissues at all times. I then made my box but removing the PCL. Once I was satisfied with my cuts I turned my attention to the tibia. I removed the meniscus medially and laterally and , using an external cutting guide, in line with the tibial crest and the third ray, I made my distal tibial cut in 0 deg slope of while protecting the posterior soft tissues at all times. An extension block was used to confirm appropriate amount of bony resection. I then sized a #3 tibia and once I was satisfied that there was complete tibial coverage I placed my trial and with the trial femur in place took the knee through range of motion. I was satisfied with the extension and flexion as well as the balance at 0, 30 and 90 degrees. I then turned my attention to the patella where I removed 1 cm from the undersurface of the patella and then trialed a 29a patellar button. Again the knee was taken through range of motion I was satisfied with the tracking. I then prepared the tibia with a drill and punch. A femoral bone plug was placed and the knee was irrigated copiously. I then cemented the patella, tibia and femur in standard fashion. Axial compression and a clamp were used while the cement dried. Once the cement was hard on the back table all excess cement was removed and I trialed different inserts until I selected a #9ps insert. The final insert was placed and local TXA was administered. A Werewolf cautery wand was used to maintain hemostasis over the capsule and meniscal beds, the gutters and peripatellar soft tissues. The knee was then closed with a running Quill suture, a 3 0 Vicryl and jayashree on the skin. Patient was then placed in sterile dressing and brought to recovery room in stable condition there were no known complications.
== END 2023-06-09 16:49 | disposition skilled nursing facility (03) | DRG 470 ==
LOC: HO.SSSA 10:04 → HO.S3 18:00
PROVIDERS: Orthopaedic Surgery; Admitting Provider Physician Assistant; PCP Internal Medicine; Visit Provider Physician Assistant
PROC: 0SRD0J9 Replacement of Left Knee Joint with Synthetic Substitute, Cemented, Open Approach (ICD-10-PCS; CPT 27447; principal; 2023-06-06 11:50)
DX: M17.12 Unilateral primary osteoarthritis, left knee (principal); I10 Essential (primary) hypertension; F41.9 Anxiety disorder, unspecified; K21.9 Gastro-esophageal reflux disease without esophagitis; G89.18 Other acute postprocedural pain; Z79.899 Other long term (current) drug therapy
CPT/HCPCS: 27447; 36415; 73560; 80048; 82565; 85025; 86850; 86870; 86885; 86900; 86901; 86902; 86905; 86920; 86922; 87640; 87641; 88305; 88311; 97110; 97116; 97162; C1713; C1776; J0131; J0665; J0690; J1100; J1170; J1650; J2405; J2704; J7120

== ENCOUNTER → 2023-06-06 10:02 | Outpatient (BNV) | payer MEDICARE, MEDICAID, SELFPAY | PROVIDERS: Admitting Provider Physician Assistant; PCP Internal Medicine; Visit Provider Orthopaedic Surgery | DX: Z96.652 Presence of left artificial knee joint (principal) | CPT/HCPCS: 27447; 99024 ==

== ENCOUNTER → 2023-06-06 10:02 | Outpatient (BNV) | payer MEDICARE, MEDICAID, SELFPAY | PROVIDERS: Admitting Provider Physician Assistant; PCP Internal Medicine; Visit Provider Internal Medicine | DX: I10 Essential (primary) hypertension (principal); M17.0 Bilateral primary osteoarthritis of knee; Z96.652 Presence of left artificial knee joint | CPT/HCPCS: 99222; 99232; 99499 ==

== ENCOUNTER 2023-06-22 13:15 | Outpatient (AMB) | payer MEDICARE, SELFPAY ==
--- NOTE | 2023-06-22 06:39 | A.OFFVIS_ITS ---
Intake Vital Signs 06/22/23 13:17 Height 5 ft 3 in Weight 149 lb BMI 26.4 Intake Visit Reasons: PO-LT TKA 06/06/23 NE Intake Note: Briana 87 yr old female presents today for her PO visit for her left TKA 06/06/23 NE. Dressing and cristiane removed in office and sterile strips applied Information Interpreted: non-clinical & clinical Accompanied by: Daughter Allergies aspirin [Aspirin] Allergy (Unknown, Verified 06/22/23 13:19) NOSEBLEEDS codeine [Codeine] Allergy (Unknown, Verified 06/22/23 13:19) N/V morphine [MORPHINE] Allergy (Unknown, Verified 06/22/23 13:19) NAUSEA/VOMITING Penicillins Allergy (Unknown, Verified 06/22/23 13:19) FACIAL SWELLING HPI PO-LT TKA 06/06/23 NE HPI Details 87-year-old female who returns to the [facility] today for post-op left TKA, 06/06/[address] Sanches. She states she has improvement in her symptoms and is doing well overall. She has no concerns today. [facility] Medical History Back pain Anxiety Cataract Vertigo Leg edema, left Fatty liver Arthritis Trigeminal neuralgia HTN (hypertension) GERD (gastroesophageal reflux disease) Breast cancer PVD (peripheral vascular disease) Surgical History History of esophagogastroduodenoscopy (EGD) H/O colonoscopy History of bilateral cataract extraction History of left salpingo-oophorectomy Hx of hysterectomy History of nasal polypectomy Hx of cholecystectomy History of lumpectomy of left breast History of surgical removal of meniscus of knee Family History Mother Cancer Brother Diabetes Social History Household Members: Children Household Members Other:: Ex DIL Housing: Apartment Are you a primary daycare provider to a significant other at home: No Do you presently have visiting nurse or other home services: No Alcohol intake: never Patient Tobacco Use Status: Never used Tobacco Review of Systems Const All systems reviewed & are unremarkable except as noted in HPI and below Physical Exam Vital Signs: BMI result Body Mass Index 26.4 Extrem Other: Left knee: Incision clean, dry and intact. No erythema or drainage. ROM is 0-95 degrees. Calf supple, nontender. NVI. Results Reviewed Results Reviewed: Brief Operative Note Date of Service: 06/06/23 Pre-op diagnosis: Left knee OA Post-op diagnosis: same Procedure: Left TKA Implants: Arron Triathlon posterior stabilized PS/29s cemented Surgeon: Adalid Sanches MD Assessment & Plan Assessment & Plan (1) Status post total left knee replacement: Code(s): Z96.652 - Presence of left artificial knee joint Plan Cristiane removed, steri strips applied. She is still in rehab and plans to d/c this coming monday. She will have home PT set up and then transition to Outpatient PT to continue working on Gait training, ROM and quad strength. No driving for another 4 weeks. She will require ppx abx for dental procedures. She will f/u in 4 weeks, sooner if needed. Patient Instructions: Scribed for Mica Tillman PA-C, by Ricardo Mccord medical practice manager, on 06/22/2023 at 1:30 PM EST. I, Mica Tillman PA-C, have personally reviewed and agree with the information entered by the scribe. Coding Level of Care Code Global (97827) Diagnoses Status post total left knee replacement Z96.652
[2023-06-22 13:17] VITALS: BMI 26.4
== END 2023-06-22 14:16 | disposition home or self-care (01) ==
PROVIDERS: PCP Internal Medicine; Visit Provider Physician Assistant
DX: Z96.652 Presence of left artificial knee joint (principal)
CPT/HCPCS: 99024

== ENCOUNTER → 2023-06-22 13:15 | Outpatient (BNVA) | payer MEDICARE, MEDICAID, SELFPAY | PROVIDERS: PCP Internal Medicine; Visit Provider Physician Assistant | DX: Z96.652 Presence of left artificial knee joint (principal); Z48.02 Encounter for removal of sutures | CPT/HCPCS: 99212 ==

== ENCOUNTER 2023-07-20 09:28 | Outpatient (AMB) | payer MEDICARE, MEDICAID, SELFPAY ==
--- NOTE | 2023-07-20 09:40 | A.OFFVIS_ITS ---
Vital Signs 07/20/23 09:41 Height 5 ft 3 in Weight 149 lb BMI 26.4 Intake Visit Reasons: 6 wk PO-LT TKA 06/06/23 NE Intake Note: Briana is an 87 year old female who presents today for a post operative visit s/p left TKA 06/06/23 NE. Patient reports that she is doing well, she feels some warmth of the knee after doing exercises. She is having no pain. Allergies aspirin [Aspirin] Allergy (Unknown, Verified 06/22/23 13:19) NOSEBLEEDS codeine [Codeine] Allergy (Unknown, Verified 06/22/23 13:19) N/V morphine [MORPHINE] Allergy (Unknown, Verified 06/22/23 13:19) NAUSEA/VOMITING Penicillins Allergy (Unknown, Verified 06/22/23 13:19) FACIAL SWELLING HPI HPI 6 wk PO-LT TKA 06/06/23 NE: Details: Briana is an 87 year old female who presents today for a post operative visit s/p left TKA 06/06/23 NE. Patient reports that she is doing well, she feels some warmth of the knee after doing exercises. She is having no pain. [facility] Medical History Back pain Anxiety Cataract Vertigo Leg edema, left Fatty liver Arthritis Trigeminal neuralgia HTN (hypertension) GERD (gastroesophageal reflux disease) Breast cancer PVD (peripheral vascular disease) Surgical History History of esophagogastroduodenoscopy (EGD) H/O colonoscopy History of bilateral cataract extraction History of left salpingo-oophorectomy Hx of hysterectomy History of nasal polypectomy Hx of cholecystectomy History of lumpectomy of left breast History of surgical removal of meniscus of knee Family History Mother Cancer Brother Diabetes Social History Household Members: Children Household Members Other:: Ex DIL Housing: Apartment Are you a primary transitions rn care coordinator to a significant other at home: No Do you presently have visiting nurse or other home services: No Alcohol intake: never Patient Tobacco Use Status: Never used Tobacco Physical Exam Vital Signs: BMI result Body Mass Index 26.4 Extrem Other: 3-125 deg stable arc of motion inc c/d/i Assessment & Plan Assessment & Plan (1) Status post total left knee replacement: Code(s): Z96.652 - Presence of left artificial knee joint Category: Surgical Plan: Doing well s/p knee replacement Cont PT and strengthening Will be weaning off walker next week f/u 6 weeks with PA Coding Level of Care Code Global (85741) Diagnoses Status post total left knee replacement Z96.652
[2023-07-20 09:41] VITALS: BMI 26.4
== END 2023-07-20 09:54 | disposition home or self-care (01) ==
PROVIDERS: PCP Internal Medicine; Visit Provider Orthopaedic Surgery
DX: Z96.652 Presence of left artificial knee joint (principal)
CPT/HCPCS: 99024

== ENCOUNTER → 2023-07-20 09:28 | Outpatient (BNVA) | payer MEDICARE, MEDICAID, SELFPAY | PROVIDERS: PCP Internal Medicine; Visit Provider Orthopaedic Surgery | DX: Z96.652 Presence of left artificial knee joint (principal) | CPT/HCPCS: 99212 ==

== ENCOUNTER 2023-07-26 09:09 | Outpatient (REF) | payer MEDICARE, MEDICAID, SELFPAY ==
--- NOTE | ~2023-07-26 | MM_ITS ---
EXAMINATION: MM SCREENING DIGITAL BREAST TOMOSYNTHESIS, BILATERAL CLINICAL INFORMATION: Screening. Asymptomatic. 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 COMPARISON: Mammography: 06/10/2022, 06/08/2021, 06/05/2020, 06/05/2019, 05/31/2019, 05/25/2018. TECHNIQUE: Digital breast tomosynthesis is performed in both the craniocaudal and mediolateral oblique views along with computer-aided detection (CAD). Synthesized 2D images are generated from the tomosynthesis. In addition, a right CC exaggerated lateral view was also obtained. FINDINGS: There are scattered areas of fibroglandular density (ACR BI-RADS breast composition Category b). Left breast is smaller than the right, and there are unchanged post therapy changes involving the left breast. There is no evidence of recurrent disease by mammography. There are bilateral left greater than right vascular calcifications. There are no developing suspicious masses, suspicious grouped calcifications, or new areas of architectural distortion in either breast. The parenchymal pattern is stable from prior exams. No axillary abnormalities. MM/MM tomosynthesis screening BI IMPRESSION: -No mammographic evidence of malignancy. -Stable post treatment related changes left breast. ASSESSMENT: BI-RADS BI-RADS 2 - Benign Findings RECOMMENDATION: Routine annual mammography screening. 1 year F/U This examination should not preclude the clinical evaluation of a suspicious palpable abnormality. This patient's information was entered into a reminder system with a target due date for their next mammogram.
== END 2023-07-26 09:10 | disposition home or self-care (01) ==
LOC: HO.MAMMO 09:09
PROVIDERS: PCP Internal Medicine; Visit Provider Internal Medicine
DX: Z12.31 Encounter for screening mammogram for malignant neoplasm of breast (principal)
CPT/HCPCS: 77063; 77067

== ENCOUNTER → 2023-07-26 09:30 | Outpatient (BNV) | payer MEDICARE, MEDICAID, SELFPAY | PROVIDERS: PCP Internal Medicine; Visit Provider Radiology Diagnostic Radiology | DX: Z12.31 Encounter for screening mammogram for malignant neoplasm of breast (principal) | CPT/HCPCS: 77063; 77067 ==

== ENCOUNTER 2023-08-31 06:00 | Outpatient (REF) | payer MEDICARE, MEDICAID, SELFPAY ==
--- NOTE | ~2023-08-31 | XR_ITS ---
EXAMINATION: XR KNEE, LEFT CLINICAL INFORMATION: Pain in left knee. COMPARISON: 06/06/2023 TECHNIQUE: AP standing view of bilateral knees as well as sunrise and lateral views of the left knee. FINDINGS: Left knee total arthroplasty. Hardware appears intact. Moderate joint effusion. AP standing view of the right knee demonstrates moderate narrowing of the medial compartment with medial marginal osteophytes and faint chondrocalcinosis in the lateral compartment. The bones are diffusely demineralized. XR/XR knee LT 3V IMPRESSION: 1. Left knee total arthroplasty. Hardware appears intact. Moderate joint effusion. 2. Moderate degenerative changes right knee.
== END 2023-08-31 06:01 | disposition home or self-care (01) ==
LOC: HO.HOSX 06:00
PROVIDERS: Visit Provider Physician Assistant
DX: Z47.1 Aftercare following joint replacement surgery (principal); Z96.652 Presence of left artificial knee joint
CPT/HCPCS: 73562; 99212

== ENCOUNTER 2023-08-31 09:43 | Outpatient (AMB) | payer MEDICARE, SELFPAY ==
--- NOTE | 2023-08-31 09:44 | A.OFFVIS_ITS ---
Intake Visit Reasons: PO-LT TKA 06/06/23 NE Intake Note: Briana is an 87 year old female who presents today for a post operative visit s/p left TKA 06/06/23 NE. Patient reports she is doing well and denies any pain except when doing her exercises. She states she is able to walk better as well. Allergies aspirin [Aspirin] Allergy (Unknown, Verified 08/31/23 09:55) NOSEBLEEDS codeine [Codeine] Allergy (Unknown, Verified 08/31/23 09:55) N/V morphine [MORPHINE] Allergy (Unknown, Verified 08/31/23 09:55) NAUSEA/VOMITING Penicillins Allergy (Unknown, Verified 08/31/23 09:55) FACIAL SWELLING HPI HPI PO-LT TKA 06/06/23 NE: Details: 88-year-old female who returns to the office today for post-op left TKA, 06/06/[address] Sanches. She states she has no pain and is able to walk better than previously. She continues to work on her exercises as instructed. She is doing well overall and has no concerns today. [facility] Medical History Back pain Anxiety Cataract Vertigo Leg edema, left Fatty liver Arthritis Trigeminal neuralgia HTN (hypertension) GERD (gastroesophageal reflux disease) Breast cancer PVD (peripheral vascular disease) Surgical History History of esophagogastroduodenoscopy (EGD) H/O colonoscopy History of bilateral cataract extraction History of left salpingo-oophorectomy Hx of hysterectomy History of nasal polypectomy Hx of cholecystectomy History of lumpectomy of left breast History of surgical removal of meniscus of knee Family History Mother Cancer Brother Diabetes Social History Household Members: Children Household Members Other:: Ex DIL Housing: Apartment Are you a primary health care manager to a significant other at home: No Do you presently have visiting nurse or other home services: No Alcohol intake: never Patient Tobacco Use Status: Never used Tobacco Review of Systems Const All systems reviewed & are unremarkable except as noted in HPI and below Physical Exam Const General: cooperative and no acute distress Orientation/consciousness: patient oriented x3 Resp Effort & Inspection: normal respiratory effort and able to speak in complete sentences Cardio Peripheral pulses: Peripheral pulses 2+ throughout Neuro General: patient oriented x3 Extrem Other: Left knee: Surgical scar well healed. No erythema or swelling. She has full ROM without pain. She can activate her quad. Calf supple, nontender. NVI. Results Reviewed Results Reviewed: Xrays were obtained in the office today and personally reviewed by me of the right knee show intact total knee prosthesis without signs of loosening. Assessment & Plan Assessment & Plan (1) Status post total left knee replacement: Code(s): Z96.652 - Presence of left artificial knee joint Category: Surgical Plan She will continue with her exercises to maintain her ROM and strengthening. She will continue with activities as tolerated. If symptoms persist or worsen, she will contact the office, otherwise follow-up in 9 months for an annual TKA follow-up with x-rays, sooner if needed. Orders: Orders XR knee LT 3V Today M25.562 - Pain in left knee Patient Instructions: Scribed for Mica Tillman PA-C, by Ricardo Mccord emergency medical technician, on 08/31/2023 at 9:45 AM EST.? I, Mica Tillman PA-C, have personally reviewed and agree with the information entered by the scribe. Coding Level of Care Code Global (03464) Diagnoses Status post total left knee replacement Z96.652
== END 2023-08-31 10:23 | disposition home or self-care (01) ==
PROVIDERS: PCP Internal Medicine; Visit Provider Physician Assistant
DX: Z96.652 Presence of left artificial knee joint (principal)
CPT/HCPCS: 99024

== ENCOUNTER 2023-10-12 09:26 | Outpatient (REF) | payer MEDICARE, MEDICAID, SELFPAY ==
[2023-10-12 11:15] LABS: Anion Gap 14 (12-20); Blood Urea Nitrogen 17 mg/dL (9-16); Carbon Dioxide 24 mmol/L (22-29); Chloride 107 mmol/L (96-108); Estimated Glomerular Filt Rate > 60; Potassium 4.1 mmol/L (3.3-5.1); Sodium 141 mmol/L (135-145)
== END 2023-10-12 09:27 | disposition home or self-care (01) ==
LOC: HO.10HDL 09:26
PROVIDERS: Visit Provider Internal Medicine Nephrology
DX: I10 Essential (primary) hypertension (principal)
CPT/HCPCS: 36415; 80051; 82565; 84520

== ENCOUNTER 2023-10-13 09:25 | Outpatient (AMB) | payer MEDICARE, MEDICAID, SELFPAY ==
[2023-10-13 09:36] VITALS: BP 130/70; PULSE 97; O2SAT 95; BMI 26.6
--- NOTE | 2023-10-13 09:36 | HO.NEPHOV ---
Vital Signs 10/13/23 09:36 Height 5 ft 3 in Weight 150 lb BMI 26.6 BP 130/70 Blood Pressure Location Rt brachial Position Sitting Pulse 97 Pulse Source Pulse Oximeter Pulse Oximetry (%) 95 Oxygen Delivery Method Room Air Intake Visit Reasons: 6mon follow up/ LVM [employer] Sheets Supervisor Required: No Accompanied by: Self / Same As Patient Allergies aspirin [Aspirin] Allergy (Unknown, Verified 10/13/23 09:42) NOSEBLEEDS codeine [Codeine] Allergy (Unknown, Verified 10/13/23 09:42) N/V morphine [MORPHINE] Allergy (Unknown, Verified 10/13/23 09:42) NAUSEA/VOMITING Penicillins Allergy (Unknown, Verified 10/13/23 09:42) FACIAL SWELLING HPI Comments Details: Briana was seen in follow up for hypertension. She had been taking increased sodium diet but is compliant with her medications. Her BP has been at goal. She does not have any chest pain, SOB, PND, orthopnea, edema or urinary symptoms. She recently had stomach flu for a week. She was COVID negative . [facility] Medical History (Updated 10/13/23 @ 10:11 by Flaquito Momin MD) HTN (hypertension) Primary osteoarthritis of knees, bilateral Back pain Anxiety Cataract Vertigo Leg edema, left Fatty liver Arthritis Trigeminal neuralgia GERD (gastroesophageal reflux disease) Breast cancer PVD (peripheral vascular disease) Surgical History History of esophagogastroduodenoscopy (EGD) H/O colonoscopy History of bilateral cataract extraction History of left salpingo-oophorectomy Hx of hysterectomy History of nasal polypectomy Hx of cholecystectomy History of lumpectomy of left breast History of surgical removal of meniscus of knee Family History Mother Cancer Brother Diabetes Social History Household Members: Children Household Members Other:: Ex DIL Housing: Apartment Are you a primary team primary care physician to a significant other at home: No Do you presently have visiting nurse or other home services: No Alcohol intake: never Patient Tobacco Use Status: Never used Tobacco Physical Exam Vital Signs: Last Vital Signs Pulse 97 10/13/23 09:36 BP 148/72 H 10/13/23 09:36 Pulse Ox 95 10/13/23 09:36 Oxygen Delivery Method Room Air 10/13/23 09:36 BMI result Body Mass Index 26.6 Const General: comfortable and no acute distress Orientation/consciousness: patient oriented x3 HEENT Head: Yes normocephalic Mouth: Normal oral and palatal mucosa present Eyes EOM: EOMs intact bilaterally Neck Neck: Yes supple Resp Auscultation: clear to auscultation bilaterally Cardio Jugular venous distension: no JVD Rate: regular rate GI Palpation (GI): Soft to palpation Auscultation: normal bowel sounds General: Yes no CVA tenderness Back/Spine/Pelvis Back: no CVA tenderness Skin General skin exam: no rashes or lesions noted Neuro General: patient oriented x3 and moves all extremities Extrem General: Yes no pedal edema Results Reviewed Nephrology Results: Hgb 11.1 g/dl (12.0-16.0) L 06/26/23 WBC 5.7 X10*3/uL (4.8-10.8) 06/26/23 Plt Count 218 X10*3/uL (160-400) 06/26/23 Sodium 141 mmol/L (135-145) 10/12/23 Potassium 4.1 mmol/L (3.3-5.1) 10/12/23 Chloride 107 mmol/L (96-108) 10/12/23 Carbon Dioxide 24 mmol/L (22-29) 10/12/23 BUN 17 mg/dL (9-16) H 10/12/23 Creatinine 0.74 mg/dL (0.5-1.4) 10/12/23 Calcium 8.8 mg/dL (8.4-10.2) 06/26/23 Assessment & Plan Assessment & Plan (1) HTN (hypertension): Code(s): I10 - Essential (primary) hypertension Category: Medical Qualifiers: Hypertension type: primary hypertension Qualified Code(s): I10 - Essential (primary) hypertension Plan 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 No H/O proteinuria; BP has been at goal on current dose of Amlodipine Volume status optimal. No active symptoms of macro/cyndi vascular disease No NSAID's. Good hydration. No medication changes today; F/U labs ordered Answered all questions/ FU given Orders: Orders Creatinine Today I10 - Essential (primary) hypertension Blood Urea Nitrogen Today I10 - Essential (primary) hypertension Electrolytes Today I10 - Essential (primary) hypertension Coding Level of Care Code Est Pt Level 4 (07909) Diagnoses Primary hypertension I10 Hypertension type: primary hypertension
== END 2023-10-13 10:27 | disposition home or self-care (01) ==
PROVIDERS: PCP Internal Medicine; Visit Provider Internal Medicine Nephrology
DX: I10 Essential (primary) hypertension (principal)
CPT/HCPCS: 99214

== ENCOUNTER → 2023-10-13 09:25 | Outpatient (BNVA) | payer MEDICARE, MEDICAID, SELFPAY | PROVIDERS: PCP Internal Medicine; Visit Provider Internal Medicine Nephrology | DX: I10 Essential (primary) hypertension (principal) | CPT/HCPCS: 99212 ==

== ENCOUNTER 2023-12-11 09:59 | Outpatient (REF) | payer MEDICARE, MEDICAID, SELFPAY ==
[2023-12-11 10:47] LABS: MANUAL DIFF FLAG NO
[2023-12-11 10:48] LABS: Basophils Absolute Auto 0.1 X10*3/uL (0.0-0.2); Basophils Percent Auto 0.8 % (0-2); Eosinophils Absolute Auto 0.8 X10*3/uL (0.0-0.4); Hematocrit 37.2 % (37.0-47.0); Hemoglobin 12.9 g/dl (12.0-16.0); Imm Gran Abs Auto 0.01 X10*3/uL (0.00-0.03); Imm Gran Pct Auto 0.2 % (0.0-0.4); Lymphocytes Absolute Auto 2.4 X10*3/uL (1.2-4.9); Lymphocytes Percent Auto 39.9 % (20-40); Mean Corpuscular HGB Conc 34.7 g/dl (31.0-35.0); Mean Corpuscular Hemoglobin 32.5 pg (27.0-33.0); Mean Corpuscular Volume 93.7 fL (80.0-98.0); Monocytes Absolute Auto 0.8 X10*3/uL (0.1-1.2); Neutrophils Absolute Auto 1.9 x10*3/uL (2.0-8.3); Neutrophils Percent Auto 32.1 % (45-73); Platelet Count 159 X10*3/uL (160-400); Red Blood Count 3.97 X10*6/uL (4.20-5.50); Red Cell Distribution Width 12.5 % (11.0-16.0)
[2023-12-11 11:59] LABS: Alanine Aminotransferase 14 U/L (0-31); Albumin Level 4.4 g/dL (3.5-5.0); Alkaline Phosphatase 86 U/L (39-117); Anion Gap 10 (12-20); Aspartate Amino Transferase 24 U/L (5-31); Bilirubin Total 0.5 mg/dL (0.0-1.0); Blood Urea Nitrogen 17 mg/dL (9-16); Calcium 10.1 mg/dL (8.4-10.2); Carbon Dioxide 27 mmol/L (22-29); Chloride 107 mmol/L (96-108); Estimated Glomerular Filt Rate > 60; Glucose Random 101 mg/dL (60-115); Potassium 3.8 mmol/L (3.3-5.1); Sodium 140 mmol/L (135-145); Vitamin D 25-OH Total 52.5 ng/mL (>30)
[2023-12-11 12:00] LABS: Vitamin B12 446 pg/mL (200-900)
== END 2023-12-11 10:00 | disposition home or self-care (01) ==
LOC: HO.10HDL 09:59
PROVIDERS: Visit Provider Internal Medicine
DX: D69.6 Thrombocytopenia, unspecified (principal); I10 Essential (primary) hypertension; R21 Rash and other nonspecific skin eruption; Z96.652 Presence of left artificial knee joint
CPT/HCPCS: 36415; 80053; 82306; 82607; 85025

== ENCOUNTER 2024-06-17 08:55 | Outpatient (REF) | payer OTHER, SELFPAY ==
--- NOTE | ~2024-06-17 | XR_ITS ---
CLINICAL HISTORY: OA Two views of the left hip. COMPARISON: None FINDINGS: Visualized portions of the proximal left femur appears intact. No trabecular disruption or cortical discontinuity. Femoral head is appropriately seated in the acetabulum. Visualized portions of the pelvis appear intact. Pelvic phleboliths present. IMPRESSION: 1. No radiographic evidence of acute injury to the left hip. No significant degenerative changes of the left hip. This document has been electronically signed by: Chandana Avery MD on 06/18/2024 15:07:41
[2024-06-17 10:43] LABS: Anion Gap 13 (12-20); Blood Urea Nitrogen 25 mg/dL (9-16); Carbon Dioxide 23 mmol/L (22-29); Chloride 108 mmol/L (96-108); Estimated Glomerular Filt Rate > 60; Potassium 3.9 mmol/L (3.3-5.1); Sodium 140 mmol/L (135-145)
[2024-06-17 10:50] LABS: MANUAL DIFF FLAG NO
[2024-06-17 11:16] LABS: Basophils Percent Auto 0.5 % (0-2); Eosinophils Absolute Auto 0.6 X10*3/uL (0.0-0.4); Eosinophils Percent Auto 7.6 % (0-4); Hematocrit 39.9 % (37.0-47.0); Hemoglobin 13.4 g/dl (12.0-16.0); Imm Gran Abs Auto 0.02 X10*3/uL (0.00-0.03); Imm Gran Pct Auto 0.3 % (0.0-0.4); Lymphocytes Absolute Auto 1.9 X10*3/uL (1.2-4.9); Lymphocytes Percent Auto 23.6 % (20-40); Mean Corpuscular HGB Conc 33.6 g/dl (31.0-35.0); Mean Corpuscular Hemoglobin 31.8 pg (27.0-33.0); Mean Corpuscular Volume 94.8 fL (80.0-98.0); Mean Platelet Volume 12.2 fL (9.4-12.3); Monocytes Absolute Auto 1.1 X10*3/uL (0.1-1.2); Monocytes Percent Auto 13.9 % (2-11); Neutrophils Absolute Auto 4.3 x10*3/uL (2.0-8.3); Neutrophils Percent Auto 54.1 % (45-73); Platelet Count 190 X10*3/uL (160-400); Red Blood Count 4.21 X10*6/uL (4.20-5.50); Red Cell Distribution Width 12.3 % (11.0-16.0); White Blood Count 7.9 X10*3/uL (4.8-10.8)
[2024-06-17 11:58] LABS: Alanine Aminotransferase 22 U/L (0-31); Albumin Level 4.6 g/dL (3.5-5.0); Alkaline Phosphatase 83 U/L (39-117); Anion Gap 10 (12-20); Aspartate Amino Transferase 36 U/L (5-31); Bilirubin Total 0.4 mg/dL (0.0-1.0); Blood Urea Nitrogen 24 mg/dL (9-16); Calcium 9.6 mg/dL (8.4-10.2); Carbon Dioxide 26 mmol/L (22-29); Chloride 108 mmol/L (96-108); Estimated Glomerular Filt Rate > 60; Glucose Random 87 mg/dL (60-115); Potassium 4.1 mmol/L (3.3-5.1); Sodium 140 mmol/L (135-145); Total Protein 7.4 g/dL (6.5-8.0)
== END 2024-06-17 08:56 | disposition home or self-care (01) ==
LOC: HO.XRAY 08:55
PROVIDERS: Internal Medicine Nephrology; PCP Internal Medicine; Visit Provider Internal Medicine
DX: M16.12 Unilateral primary osteoarthritis, left hip (principal); M51.16 Intervertebral disc disorders with radiculopathy, lumbar region; I10 Essential (primary) hypertension; D69.6 Thrombocytopenia, unspecified
CPT/HCPCS: 36415; 73502; 80051; 80053; 82565; 84520; 85025

== ENCOUNTER → 2024-06-17 10:30 | Outpatient (BNV) | payer OTHER, SELFPAY | PROVIDERS: PCP Internal Medicine; Visit Provider Radiology Diagnostic Radiology | DX: M25.552 Pain in left hip (principal) | CPT/HCPCS: 73502 ==

== ENCOUNTER 2024-06-19 10:40 | Outpatient (AMB) | payer MEDICARE, MEDICAID, SELFPAY ==
--- NOTE | 2024-06-19 10:44 | HO.NEPHOV ---
Vital Signs 06/19/24 10:46 Height 5 ft 3 in Weight 151 lb BMI 26.7 BP 122/70 Blood Pressure Location Rt brachial Position Sitting Pulse 79 Pulse Source Pulse Oximeter Pulse Oximetry (%) 96 Oxygen Delivery Method Room Air Intake Visit Reasons: Rscng missed 05/15 appt-Conf Car Trimmer Required: No Accompanied by: Nephew or Niece Allergies aspirin [Aspirin] Allergy (Unknown, Verified 06/19/24 10:46) NOSEBLEEDS codeine [Codeine] Allergy (Unknown, Verified 06/19/24 10:46) N/V morphine [MORPHINE] Allergy (Unknown, Verified 06/19/24 10:46) NAUSEA/VOMITING Penicillins Allergy (Unknown, Verified 06/19/24 10:46) FACIAL SWELLING HPI Comments Details: Briana was seen in follow up for hypertension. She had been taking increased sodium diet but is compliant with her medications. Her BP has been at goal. She does not have any chest pain, SOB, PND, orthopnea, edema or urinary symptoms. She has been taking NSAID for her back pain. [facility] Medical History (Updated 10/13/23 @ 10:11 by Flaquito Momin MD) HTN (hypertension) Primary osteoarthritis of knees, bilateral Back pain Anxiety Cataract Vertigo Leg edema, left Fatty liver Arthritis Trigeminal neuralgia GERD (gastroesophageal reflux disease) Breast cancer PVD (peripheral vascular disease) Surgical History History of esophagogastroduodenoscopy (EGD) H/O colonoscopy History of bilateral cataract extraction History of left salpingo-oophorectomy Hx of hysterectomy History of nasal polypectomy Hx of cholecystectomy History of lumpectomy of left breast History of surgical removal of meniscus of knee Family History Mother Cancer Brother Diabetes Social History Household Members: Children Household Members Other:: Ex DIL Housing: Apartment Are you a primary adult care manager to a significant other at home: No Do you presently have visiting nurse or other home services: No Alcohol intake: never Patient Tobacco Use Status: Never used Tobacco Review of Systems Const All systems reviewed & are unremarkable except as noted in HPI and below Physical Exam Const General: comfortable and no acute distress Orientation/consciousness: patient oriented x3 HEENT Head: Yes normocephalic Mouth: Normal oral and palatal mucosa present Eyes EOM: EOMs intact bilaterally Neck Neck: Yes supple Resp Auscultation: clear to auscultation bilaterally Cardio Jugular venous distension: no JVD Rate: regular rate GI Palpation (GI): Soft to palpation Auscultation: normal bowel sounds General: Yes no CVA tenderness Back/Spine/Pelvis Back: no CVA tenderness Skin General skin exam: no rashes or lesions noted Neuro General: patient oriented x3 and moves all extremities Extrem General: Yes no pedal edema Results Reviewed Nephrology Results: Hgb 13.4 g/dl (12.0-16.0) 06/17/24 WBC 7.9 X10*3/uL (4.8-10.8) 06/17/24 Plt Count 190 X10*3/uL (160-400) 06/17/24 Sodium 140 mmol/L (135-145) 06/17/24 Potassium 4.1 mmol/L (3.3-5.1) 06/17/24 Chloride 108 mmol/L (96-108) 06/17/24 Carbon Dioxide 26 mmol/L (22-29) 06/17/24 BUN 24 mg/dL (9-16) H 06/17/24 Creatinine 0.71 mg/dL (0.5-1.4) 06/17/24 Calcium 9.6 mg/dL (8.4-10.2) 06/17/24 Assessment & Plan Assessment & Plan (1) HTN (hypertension): Code(s): I10 - Essential (primary) hypertension Category: Medical Qualifiers: Hypertension type: primary hypertension Qualified Code(s): I10 - Essential (primary) hypertension Plan Renal function stable. No H/O proteinuria; BP has been at goal on current dose of Amlodipine Volume status optimal. No active symptoms of macro/micro vascular disease No NSAID's. Good hydration. No medication changes today; F/U labs ordered Answered all questions/ FU given Coding Level of Care Code Est Pt Level 4 (90276) Diagnoses Primary hypertension I10 Hypertension type: primary hypertension
[2024-06-19 10:46] VITALS: BP 122/70; PULSE 79; O2SAT 96; BMI 26.7
--- OUTSIDE RECORDS SUMMARY | 2024-06-19 12:50 | XMS_ITS ---
Author Organization [facility] Support Name Relationship Address Phone Mary Farias Personal Relationship [address] [place] [address] Briana Farias Guarantor [address] [place] [address] Briana Farias Personal Relationship [address] [place] [address] Care Team Providers Care Water Valve Repairer Name Role Phone Sheila Henderson Joshua Unavailable Unavailable Fely Torres Unavailable Unavailable Shelli Giron Unavailable Unavailable Allergies and adverse reactions Code CodeSystem Substance Reaction Severity StartDate Concern Status 7984 RXNORM Penicillin Unknown 06/09/2023 active 7052 RXNORM Morphine Unknown 06/09/2023 active 2670 RXNORM Codeine Unknown 06/09/2023 active 1191 RXNORM Aspirin Unknown 06/09/2023 active Care Team Name Role Address Phone Organization Dates Michael Bryan PCP [address], [address], [facility] (Office): : [facility] 06/09/2023 - 06/27/2023 Sheila Henderson Attending Physician [address], [address], [facility] 06/09/2023 - 06/27/2023 Fely Torres Attending Physician [address] [place] [address], [address], [facility] (Office): [facility] 06/09/2023 - 06/27/2023 Shelli Giron Attending Physician [facility] 06/09/2023 - 06/27/2023 Immunizations Immunization Status Vaccine Details Vaccine Code CodeSystem Date Notes Influenza completed Influenza, split virus, trivalent, injectable, contains preservative 141 CVX created date: 06/11/2023 administere d date: 03/02/2023 (Shingles) Vaccine completed zoster vaccin e recombinant 187 CVX created date: 06/11/2023 administere d date: 07/19/2011 (COVID-19) Moderna Original Primary Dose Vaccine 1 of 2 completed SARS-COV-2 (COVID-19) vaccine, mRNA, spike protein, LNP, preservative free, 100 mcg/0.5mL dose or 50 mcg/0.25mL dose 207 CVX created date: 06/11/2023 administere d date: 10/13/2020 (COVID-19) Moderna Original Primary Dose Vaccine 2 of 2 completed SARS-COV-2 (COVID-19) vaccine, mRNA, spike protein, LNP, preservative free, 100 mcg/0.5mL dose or 50 mcg/0.25mL dose 207 CVX created date: 06/11/2023 administere d date: 11/10/2020 (Pneumococcal) PCV15- Conjugate 15-valent Vaccine completed Pneumococcal conjugate vaccine 15-valent (PCV15), polysaccharide [id number] conjugate, adjuvant, preservative free 215 CVX created date: 06/11/2023 administere d date: 05/03/2022 (Tetanus, Diphtheria, and Acellular Pertussis) Tdap completed tetanus toxoid, reduced diphtheria toxoid, and acellular pertussis vaccine, adsorbed 115 CVX created date: 06/11/2023 administere d date: 07/03/2012 (Pneumococcal) PPSV23- Polysaccharide 23-valent Vaccine completed pneumococcal polysaccharide vaccine, 23 valent 33 CVX created date: 06/11/2023 administere d date: 2008 Mental Status Section Date Assessment Total Score Description 06/27/2023 BIMS 15 cognitively int act CAM 0 No delirium ind icated 06/13/2023 BIMS 08 moderate cognit alexsandra impairment CAM 0 No delirium ind icated Problems Problem # Description Date of onset Resolved Date Code CodeSystem Concern Status 1 AFTERCARE FOLLOWING JOINT REPLACEMENT SURGERY 06/09/[address] active 2 DIFFICULTY IN WALKING, NOT ELSEWHERE CLASSIFIED 06/09/[address] active 3 MUSCLE WASTING AND ATROPHY, NOT ELSEWHERE CLASSIFIED, MULTIPLE SITES 06/09/[address] active 4 OTHER LACK OF COORDINATION 06/09/[address] active 5 UNILATERAL PRIMARY OSTEOARTHRITIS, LEFT KNEE 06/09/[address] active 6 UNSPECIFIED LACK OF COORDINATION 06/09/[address] active 7 UNSPECIFIED PROTEIN-CALORIE MALNUTRITION 06/09/[address] active Reason for Referral No Reasons for Referral Entered Social History Social History Observation Description Start Date End Date Code Code System Current Smoking Status Tobacco smoking consumption unknown 454917044 SNOMED CT Sex Assigned At Female 1935 61142-5 [facility] Vital Signs Code Code System Vitals Name Values and Units Timing Information 33463-2 [facility] Pain Level Value=0.0 06/27/2023 9279-1 [facility] Respiratory Rate Value=18.0 Units=/m in 06/26/2023 8462-4 [facility] Blood Pressure-Diastolic Value=73 Un its=mmHg 06/26/2023 8480-6 [facility] Blood Pressure-Systolic Zeeeb=479 Un its=mmHg 06/26/2023 8310-5 [facility] Body Temperature Value=97.3 Units=?? F 06/26/2023 8867-4 INC Heart rate Value=82.0 Units=/min 03/2023 31536-9 [facility] O2 % BldC Oximetry Value=97.0 Units= % 06/26/2023 70806-2 [facility] Weight Jwrya=608.0 Units=Lbs 8302-2 [facility] Height Value=64.0 Units=Inches 06/09/2023
--- OUTSIDE RECORDS SUMMARY | 2024-06-19 12:50 | XMS_ITS | Clinical Summary ---
Author Organization [facility] Address [address] [place] [address] Phone Care Team Providers Care Systems Checkout Mechanic Name Role Phone Margie Wallis MD Primary Care Provider [phone] Allergies Active Allergy Reactions Criticality Noted Date Comments Codeine Other (see comments) 05/15/2007 Iodinated Contrast Media Low 10/14/2013 Eczematous rash Morphine Nausea And Vomiting 09/29/2010 Penicillins Other (see comments) 09/24/2020 Salicylates Other (see comments) 05/15/2007 Medications Calcium Carbonate-Vitam in D 600-200 MG-UNIT capsule Take 2 capsules by mouth 1 (one) time each day Active omeprazole (PriLOSEC) [address] capsule Take 1 capsule by mouth 1 (one) time each day Active alpha tocopherol (VITAMIN E) 400 units capsule Take 400 Units by mouth 1 (one) time each day Active b complex vitamins capsule Take 1 capsule by mouth 1 (one) time each day Active Turmeric 400 MG capsule Take 1 capsule by mouth 1 (one) time each day Active Probiotic Product (PROBIOTIC-10 PO) Take 1 tablet by mouth 1 (one) time each day Active amLODIPine (NORVASC) 2.5 MG tablet Take 2.5 mg by mouth at bed time 08/11/2021 Active fluticasone (FLONASE) 50 MCG/ACT nasal spray INSTILL 1 SPRAY INTO EACH NOSTRIL TWICE DAILY 08/02/2022 Active Active Problems Problem Noted Date Diagnosed Date Severe obesity 11/01/2021 Hypertension 09/24/2020 Hyponatremia 09/24/2020 Resolved Problems Problem Noted Date Diagnosed Date Resolved Date Gastroesophageal reflux disease 09/24/2020 09/24/2020 Fatty liver 04/14/2017 09/24/2020 Venous insufficiency 01/16/2017 021 Disorder of breast 10/20/2016 Edema of left lower limb 09/22/201503/2020 Overview (09/24/2020): Evaluated at [facility] vascular services on 03/18/15. Compression stockings were recommended. Peripheral vascular disease 10/07/2014 09/24/2020 Personal history of breast cancer 11/04/2013 09/24/2020 Breast cancer genetic marker of susceptibility detected 07/04/2013 09/24/2020 Primary malignant neoplasm of breast 06/06/2013 09/24/2020 Overview (09/24/2020): Lumpectomy, radiation therapy, 2014, left Trigeminal neuralgia 12/11/2012 021 Vertigo 04/04/2012 09/24/2020 Lumbar spondylosis 05/25/2010 Lumbosacral radiculitis 05/25/2010 07/03/2020 Perineural cyst 05/25/2010 09/24/2020 Osteoporosis 05/16/2007 09/24/2020 Immunizations Name Administration Dates Next Due H1N1 Inj Preservative Free 05/25/2009 Influenza Split High Dose Pr eservative Free IM 12/25/2021,01/20/2021,12/21/2018,01/11,01/15/2017,12/20/2015,12/21/2014 Influenza TIV (IM) 01/01/2014, 3,02/15/2012,12/01,12/31/2009,12/25/2008,12/11/2007 Moderna SARS-COV-2 11/10/2020,10/13/2020 Pneumococcal Conjugate 13-Valent 06/08/2015 Pneumococcal Polysaccharide 2008 Td 08/31/2010 Tdap 07/03/2012 Zoster 07/19/2011 Family History Medical History Relation Comments Diabetes Child Heart disease Father Diabetes Sibling 1 Hypertension Sibling 2 Heart disease Sibling 3 Relation Status Comments Child Father Mother Sibling 1 Sibling 2 Sibling 3 Social History Tobacco Use Types Packs/Day Years Used Date Smoking Tobacco: Never Smokeless Tobacco: Never Tobacco Cessation:Counseling Given: Not Answered Alcohol Use Standard Drinks/Week Comments No 0 (1 standard drink = 0.6 oz pur e alcohol) Comments Unknown Sex and Gender Information Value Date Recorded Sex Assigned at Not on file Legal Sex Female 4:41 PM EST Gender Identity Not on file Sexual Orientation Not on file Last Filed Vital Signs Vital Sign Reading Time Taken Comments Blood Pressure 140/74 09/21/2022 1:10 PM EDT Pulse 94 09/21/2022 1:10 PM EDT Temperature - - Respiratory Rate - - Oxygen Saturation 95% 09/15/2021 1:42 PM EDT Inhaled Oxygen Concentration - - Weight 72.1 kg (159 lb) 09/21/2022 1:10 PM EDT Height 162.6 cm (5' 4 ) 09/18/2019 12:00 PM EDT Body Mass Index 27.29 09/18/2019 12:00 PM EDT Plan of Treatment Health Maintenance Due Date Last Done Comments Influenza Vaccine (#1) 2023 , 01/20/2021, 12/21/2018, Additional history exists Pneumococcal Vaccine: 65+ Years Completed 06/08/2015, 2008 Hepatitis B Vaccine Aged Out No longe r eligible based on patient's age to complete this topic Insurance [facility] [place] [facility] [place] Care Teams Systems Checkout Mechanic Relationship Specialty Start Date End Date Margie Wallis MD PCP - General Internal Medicine 09/30/20
== END 2024-06-19 11:02 | disposition home or self-care (01) ==
LOC: HO.HKA 10:41
PROVIDERS: PCP Internal Medicine; Visit Provider Internal Medicine Nephrology
DX: I10 Essential (primary) hypertension (principal)
CPT/HCPCS: 99214

== ENCOUNTER → 2024-06-19 10:40 | Outpatient (BNVA) | payer OTHER, SELFPAY | PROVIDERS: PCP Internal Medicine; Visit Provider Internal Medicine Nephrology | DX: I10 Essential (primary) hypertension (principal) | CPT/HCPCS: 99212 ==

== ENCOUNTER 2024-06-24 09:12 | Outpatient (REF) | payer OTHER, SELFPAY ==
--- OUTSIDE RECORDS SUMMARY | 2024-06-25 10:12 | XMS_ITS | Encounter Summary ---
Author Organization [facility] Address [address] [place] [address] Care Team Providers Care Gas Compressor Operator Name Role Phone Nora Gonzales MD Primary Care Provider Gretchen vailable Reason for Visit * Reason Onset Date Comments Prior Authorization 11/02/2021 MRI of breas t Encounter Details Date Type Department Care Team Description 11/02/2021 Telephone Adult Medicine [facility] [address] [place] [address] Erika Gonzalez PA-C [address] [place] [address] Prior Authorization (MRI of breast) Social History Tobacco Use Types Packs/Day Years Used Date Smoking Tobacco: Never Smokeless Tobacco: Never Alcohol Use Standard Drinks/Week Comments No 0 (1 standard drink = 0.6 oz pur e alcohol) Sex Assigned at Date Recorded Not on file Job Start Date Occupation Industry Not on file Not on file Not on file COVID-19 Exposure Response Date Recorded In the last 10 days, have yo u been in contact with someone who was confirmed or suspected to have Coronavirus/COVID-19? No / Unsure 11/01/2021 1:54 PM EDT documented as of this encounter Miscellaneous Notes * Telephone Encounter - Tash Davila - 11/02/2021 11:52 AM EDT Pending with insurance Thank you, Tash Hernandez Auth Department documented in this encounter Plan of Treatment Not on file documented as of this encounter Visit Diagnoses Not on filedocumented in this encounter Care Teams Gas Compressor Operator Relationship Specialty Start Date End Date Nora Gonzales MD PCP - General Internal Medicine 08/30/23 documented as of this encounter
--- OUTSIDE RECORDS SUMMARY | 2024-06-25 10:12 | XMS_ITS | Encounter Summary ---
Author Organization [facility] Address [address] [place] [address] Care Team Providers Care Physician Relations Manager Name Role Phone Lev Durham MD Primary Care Provider Unavail able Nora Gonzales MD Primary Care Provider Gretchen vailable Encounter Details Date Type Department Care Team Description 12/23/2016 Job Placement Counselor Report Medical Records [address] [place] [address] Flaquito Momin MD Social History Tobacco Use Types Packs/Day Years Used Date Smoking Tobacco: Never Smokeless Tobacco: Never Alcohol Use Standard Drinks/Week Comments No 0 (1 standard drink = 0.6 oz pur e alcohol) Sex Assigned at Date Recorded Not on file Job Start Date Occupation Industry Not on file Not on file Not on file documented as of this encounter Plan of Treatment Not on file documented as of this encounter Visit Diagnoses Not on filedocumented in this encounter Care Teams Physician Relations Manager Relationship Specialty Start Date End Date Lev Durham MD PCP - General Internal Medicine 12/24/14 12/02/19 Nora Gonzales MD PCP - General Internal Medicine 08/30/23 documented as of this encounter
--- OUTSIDE RECORDS SUMMARY | 2024-06-25 10:12 | XMS_ITS | Encounter Summary ---
Author Organization [facility] Address [address] [place] [address] Care Team Providers Care Dairy Store Manager Name Role Phone Lev Durham MD Primary Care Provider Unavail able Nora Gonzales MD Primary Care Provider Gretchen vailable Encounter Details Date Type Department Care Team Description 03/03/2015 Release of Information Medical Records [address] [place] [id number] Abstract, Provider Social History Tobacco Use Types Packs/Day Years [...] on filedocumented in this encounter Care Teams Dairy Store Manager Relationship Specialty Start Date End Date Lev Durham MD PCP - General Internal Medicine 12/24/14 12/02/19 Nora Gonzales MD PCP - General Internal Medicine 08/30/23 documented as of this encounter
--- OUTSIDE RECORDS SUMMARY | 2024-06-25 10:12 | XMS_ITS | Encounter Summary ---
Author Organization [facility] Address [address] [place] [address] Care Team Providers Care Food Order Expediter Name Role Phone Lev Durham MD Primary Care Provider Unavail able Nora Gonzales MD Primary Care Provider Gretchen vailable Encounter Details Date Type Department Care Team Description 05/07/2018 Warp Yarn Sorter Report Medical Records [address] [place] [address] Polly Veras MD Social History Tobacco Use Types Packs/Day [...] on filedocumented in this encounter Care Teams Food Order Expediter Relationship Specialty Start Date End Date Lev Durham MD PCP - General Internal Medicine 12/24/14 12/02/19 Nora Gonzales MD PCP - General Internal Medicine 08/30/23 documented as of this encounter
--- OUTSIDE RECORDS SUMMARY | 2024-06-25 10:12 | XMS_ITS | Encounter Summary ---
Author Organization [facility] Address [address] [place] [address] Care Team Providers Care Automobile Bumper Straightener Name Role Phone Anshul Waggoner MD Primary Care Provider Gretchen vailable Olayinka Meneses MD Primary Care Provider Unavail able Anshul Waggoner MD Primary Care Provider Gretchen vailable Olayinka Meneses MD Primary Care Provider Unavail able Lev Durham MD Primary Care Provider Unavail able Olayinka Meneses MD Primary Care Provider Unavail able Lev Durham MD Primary Care Provider Unavail able Nora Gonzales MD Primary Care Provider Gretchen vailable Encounter Details Date Type Department Care Team Description 09/24/2010 Refill Physiatry - [address] [address] Toni Quezada DO Social History Tobacco Use Types Packs/Day Years Used Date Smoking Tobacco: Never Alcohol Use Standard Drinks/Week Comments No 0 (1 standard drink = 0.6 oz pur e alcohol) Sex Assigned at Date Recorded Not on file Job Start Date Occupation Industry Not on file Not on file Not on file documented as of this encounter Miscellaneous Notes * Telephone Encounter - Mary Maier L.P.N. - 09/28/2010 9:47 AM EDT Script was refilled. * Telephone Encounter - Mary Maier L.P.N. - 09/28/2010 8:31 AM EDTFrom: BRIANA HUFF To: Toni Quezada Sent: MonSep 24, 2010 7:32 PM Subject: Medication Renewal Request Original authorizing provider: Toni Quezada DO Briana Huff would like a refill of the following medications: gabapentin (NEURONTIN) 300 MG capsule [Toni Quezada DO] Preferred pharmacy: [facility] Comment: Medication renewals requested in this message routed to other providers: documented in this encounter Plan of Treatment Not on file documented as of this encounter Visit Diagnoses Diagnosis Tarlov cysts Mononeuritis of unspecified site Radiculitis, lumbosacral Thoracic or lumbosacral neuritis or radiculitis, unspecified documented in this encounter Care Teams Automobile Bumper Straightener Relationship Specialty Start Date End Date Anshul Waggoner MD PCP - General 05/15/07 12/25/13 Olayinka Meneses MD PCP - General Internal Medicine 12/26/13 02/09/14 Anshul Waggoner MD PCP - General Internal Medicine 02/10/14 Olayinka Meneses MD PCP - General Internal Medicine 05/08/14 09/18/14 Lev Durham MD PCP - General Internal Medicine 09/19/14 09/25/14 Olayinka Meneses MD PCP - General Internal Medicine 09/26/14 12/23/14 Lev Durham MD PCP - General Internal Medicine 12/24/14 12/02/19 Nora Gonzales MD PCP - General Internal Medicine 08/30/23 documented as of this encounter
--- OUTSIDE RECORDS SUMMARY | 2024-06-25 10:12 | XMS_ITS | Encounter Summary ---
Author Organization [facility] Address [address] [place] [address] Care Team Providers Care Security Systems Engineer Name Role Phone Lev Durham MD Primary Care Provider Unavail able Nora Gonzales MD Primary Care Provider Gretchen vailable Encounter Details Date Type Department Care Team Description 10/22/2016 Release of Information Medical Records [address] [place] [id number] Abstract, Provider Social History Tobacco Use Types [...] on filedocumented in this encounter Care Teams Security Systems Engineer Relationship Specialty Start Date End Date Lev Durham MD PCP - General Internal Medicine 12/24/14 12/02/19 Nora Gonzales MD PCP - General Internal Medicine 08/30/23 documented as of this encounter
--- OUTSIDE RECORDS SUMMARY | 2024-06-25 10:12 | XMS_ITS | Encounter Summary ---
Author Organization [facility] Address [facility] [place] [address] Care Team Providers Care Pipeline Operator Name Role Phone Anshul Waggoner MD Primary Care Provider Gretchen vailable Olayinka Meneses MD Primary Care Provider Unavail able Anshul Waggoner MD Primary Care Provider Gretchen vabeccable Olayinka Meneses MD Primary Care Provider Unavail able Lev Durham MD Primary Care Provider Unavail able Olayinka Meneses MD Primary Care Provider Unavail able Lev Durham MD Primary Care Provider Unavail able Nora Gonzales MD Primary Care Provider Gretchen vailable Encounter Details Date Type Department Care Team Description 09/17/2010 Hospital Medical Records [address] [place] [address] Usha Booth DO Social History Tobacco Use Types Packs/Day [...] on filedocumented in this encounter Care Teams Pipeline Operator Relationship Specialty Start Date End Date Anshul [...]
--- OUTSIDE RECORDS SUMMARY | 2024-06-25 10:12 | XMS_ITS | Encounter Summary ---
Author Organization [facility] Address [facility] [place] [address] Care Team Providers Care Human Resources Admin Name Role Phone Anshul Waggoner MD Primary [...] Details Date Type Department Care Team Description 09/10/2013 Orders Only Radiology - [address] [address] Esequiel Valentin MD HTN (hypertension) (Primary Dx) Social History Tobacco Use Types Packs/Day Years [...] on file documented as of this encounter Results * CREATININE, BLOOD ASSAY (09/11/2013 8:50 AM EDT) CREAT 0.7 0.7 - 1.5 mg/dL 09/11/2013 11:26 AM EDT [facility] GFR > 60 >60 09/11/2013 11:26 AM EDT [facility] Comment: If patient is -Indian, multiply result by 1.21 Chronic Kidney Disease: < 60 ml/min/1.73 square meters Kidney Failure: < 15 ml/min/1.73 square meters 09/11/2013 8:50 AM EDT 09/11/2013 8:50 AM EDT Esequiel Valentin MD LAB Performing Organization Address City/State/[facility] de Phone Number [address] documented in this encounter Visit Diagnoses Diagnosis HTN (hypertension)- Primary Unspecified essential hypertension documented in this encounter Care Teams Human Resources Admin Relationship Specialty Start Date End Date Anshul [...]
--- OUTSIDE RECORDS SUMMARY | 2024-06-25 10:12 | XMS_ITS | Encounter Summary ---
Author Organization [facility] Address [facility] [place] [address] Care Team Providers Care Bituminous Distributor Operator Name Role Phone Anshul Waggoner MD [...] Details Date Type Department Care Team Description 09/16/2010 Hospital Medical Records [address] [place] [address] Alfredo Dockery Social History Tobacco Use Types Packs/Day Years [...] on filedocumented in this encounter Care Teams Bituminous Distributor Operator Relationship Specialty Start Date End Date [...]
--- OUTSIDE RECORDS SUMMARY | 2024-06-25 10:12 | XMS_ITS | Encounter Summary ---
Author Organization [facility] Address [facility] [place] [address] Care Team Providers Care Quality Control Engineer Name Role Phone Nora Gonzales MD Primary Care Provider Gretchen vailable Reason for Visit * Reason Onset Date Comments Mychart Rx Refill 11/16/2021 Encounter Details Date Type Department Care Team Description 11/16/2021 Refill Adult Medicine [facility] [address] [place] [address] Erika Gonzalez PA-C [address] [place] [address] Mychart Rx Refill Social History Tobacco Use Types Packs/Day Years [...] encounter Miscellaneous Notes * Telephone Encounter - Joanne Oreilly M.A. - 11/16/2021 2:47 PM EDT Lab Results Component Value Date NA 140 08/02/2021 K 4.3 08/02/2021 CO2 26 08/02/2021 CL 107 08/02/2021 BUN 14 08/02/2021 CREAT 0.71 08/02/2021 GLU 97 08/02/2021 CA 9.3 08/02/2021 GFR > 60 08/02/2021 Last appt with Erika Gonzalez, ZAFAR 11/01/[address] Wallis 02/24/22 documented in this encounter Plan of Treatment Not on file documented as of this encounter Visit Diagnoses Not on filedocumented in this encounter Care Teams Quality Control Engineer Relationship Specialty Start Date End Date Nora Gonzales MD PCP - General Internal Medicine 08/30/23 documented as of this encounter
--- OUTSIDE RECORDS SUMMARY | 2024-06-25 10:12 | XMS_ITS | Encounter Summary ---
Author Organization [facility] Address [address] [place] [address] Care Team Providers Care Laborer Brooder Farm Name Role Phone Anshul Waggoner MD Primary [...] for Visit * Reason Onset Date Comments Call From Hospital 06/04/2013 Encounter Details Date Type Department Care Team Description 06/04/[address] [address] Anshul Waggoner MD Call From Hospital Social History Tobacco Use Types Packs/Day Years [...] encounter Miscellaneous Notes * Telephone Encounter - Samanta Dudley L.P.N. - 06/04/2013 10:00 AM EDT report to Anshul Waggoner M.D Also to Dr Mix appt 06/06/2013 * Telephone Encounter - Samanta Dudley L.P.N. - 06/04/2013 9:40 AM EDT Anna will be faxing over report * Telephone Encounter - Samanta Dudley L.P.N. - 06/04/2013 9:32 AM EDT Left msg for Anna to call back * Telephone Encounter - Margarita Teixeira - 06/04/2013 9:20 AM EDT Anna from [facility] has a breast bio for you. Please call documented in this encounter Plan of Treatment Not on file documented as of this encounter Visit Diagnoses Not on filedocumented in this encounter Care Teams Laborer Brooder Farm Relationship Specialty Start Date End Date Anshul [...]
--- OUTSIDE RECORDS SUMMARY | 2024-06-25 10:12 | XMS_ITS | Encounter Summary ---
Author Organization [facility] Address [address] [place] [address] Care Team Providers Care Anesthesiology Physician Name Role Phone Lev Durham MD Primary Care Provider Nora Ibrahim MD Primary Care Provider Gretchen vailable Reason for Visit * Reason Comments E-prescribe Rx Request Encounter Details Date Type Department Care Team Description 04/01/2016 Refill Adult Medicine [address] [address] Sweetie Dong NP E-prescribe Rx Request Social History Tobacco Use Types Packs/Day Years [...] encounter Miscellaneous Notes * Telephone Encounter - Abigail Ruiz - 04/01/2016 8:57 AM EST Patient would like script to be: E-PRESCRIBED/FAXED TO PHARMACY WHEN WAS THE PATIENT'S LAST APPOINTMENT IN ADULT MEDICINE? 02/11/16 WHEN WAS THE LAST TIME THE PATIENT SAW THEIR PCP? 01/22/16 Does patient have an upcoming appointment? Yes 04/26/16 (THE MEDICATION REQUESTED IS ON THE MED LIST ABOVE) One or some of the medications requested were on the HISTORICAL MED list Did you check the Pharmacy information above?: YES Patient wants: 30 -day supply Is this a mail order prescription request ? NO Patients current insurance carrier is: Payor: [facility]/MEDICARE PPO / Plan: [facility]-ADV PPO $15/$35 [place] / Product Type: MEDICARE [id number] documented in this encounter Plan of Treatment Not on file documented as of this encounter Visit Diagnoses Not on filedocumented in this encounter Care Teams Anesthesiology Physician Relationship Specialty Start Date End Date Lev Durham MD PCP - General Internal Medicine 12/24/14 12/02/19 Nora Gonzales MD PCP - General Internal Medicine 08/30/23 documented as of this encounter
--- OUTSIDE RECORDS SUMMARY | 2024-06-25 10:12 | XMS_ITS | Encounter Summary ---
Author Organization [facility] Address [facility] [place] [address] Care Team Providers Care Rug Dyer Helper Name Role Phone Nora Gonzales MD Primary Care Provider Gretchen vailable Encounter Details Date Type Department Care Team Description 11/29/2021 Pt. Non Urgent Medical Question Adult Medicine [address] [address] Erika Gonzalez PA-C [address] [place] [address] Osteoporosis without current pathological fracture, unspecified osteoporosis type (Primary Dx) Social History Tobacco Use Types [...] suspected to have Coronavirus/COVID-19? No / Unsure 11/23/2021 2:03 PM EDT documented as of this encounter Miscellaneous Notes * Telephone Encounter - Erika Gonzalez PA-C - 11/30/2021 4:43 PM EDT Spoke with patient and her daughter. Will restart Actonel and continue with calcium 650 mg twice daily. Ordered updated vitamin D level as we discussed 12.5 mcg is likely on the low side. Erika Gonzalez PA-C documented in this encounter Plan of Treatment Not on file documented as of this encounter Results * (ABNORMAL) 25 HYDROXY INCLUDES FRACTIONS IF PERFORMED (02/24/2022 2:47 PM EST) VITAMIN D, 25-HYDROXY 29(L) 30 - 80 ng/mL 02/24/2022 8:52 PM EST [facility] 02/24/2022 2:47 PM EST 02/24/2022 2:47 PM EST Narrative [facility] - 02/24/2022 8:52 PM EST Release to patient->Immediate Erika Gonzalez PA-C LAB [facility] documented in this encounter Visit Diagnoses Diagnosis Osteoporosis without current pathological fracture, unspecified osteoporosis type- Primary Screening examination for sexually transmitted disease Screening examination for venereal disease Osteoporosis without current pathological fracture, unspecified osteoporosis type documented in this encounter Care Teams Rug Dyer Helper Relationship Specialty Start Date End Date Nora Gonzales MD PCP - General Internal Medicine 08/30/23 documented as of this encounter
--- OUTSIDE RECORDS SUMMARY | 2024-06-25 10:12 | XMS_ITS | Encounter Summary ---
Author Organization [facility] Address [address] [place] [address] Care Team Providers Care Environmental Compliance Technician Name Role Phone Lev Durham MD Primary Care Provider Unavail able Nora Gonzales MD Primary Care Provider Gretchen vailable Encounter Details Date Type Department Care Team Description 11/16/2016 Receiving Barn Custodian Report Medical Records [address] [place] [address] Flaquito Momin MD Social History Tobacco Use [...] on filedocumented in this encounter Care Teams Environmental Compliance Technician Relationship Specialty Start Date End Date Lev Durham MD PCP - General Internal Medicine 12/24/14 12/02/19 Nora Gonzales MD PCP - General Internal Medicine 08/30/23 documented as of this encounter
--- OUTSIDE RECORDS SUMMARY | 2024-06-25 10:12 | XMS_ITS | Encounter Summary ---
Author Organization [facility] Address [address] [place] [address] Care Team Providers Care Convenience Store Manager Name Role Phone Lev Durham MD Primary Care Provider Unavail able Nora Gonzales MD Primary Care Provider Gretchen vailable Encounter Details Date Type Department Care Team Description 11/05/2016 Hospital Medical Records [address] [place] [address] Eligio Ness MD Social History Tobacco Use Types Packs/Day [...] on filedocumented in this encounter Care Teams Convenience Store Manager Relationship Specialty Start Date End Date Lev Durham MD PCP - General Internal Medicine 12/24/14 12/02/19 Nora Gonzales MD PCP - General Internal Medicine 08/30/23 documented as of this encounter
--- OUTSIDE RECORDS SUMMARY | 2024-06-25 10:12 | XMS_ITS | Encounter Summary ---
Author Organization [facility] Address [address] [place] [address] Care Team Providers Care Tmr Teacher Name Role Phone Lev Durham MD Primary Care Provider Unavail able Nora Gonzales MD Primary Care Provider Gretchen vailable Encounter Details Date Type Department Care Team Description 10/08/2017 Refill Adult Medicine [address] [address] Lev Durham MD Social History Tobacco Use Types Packs/Day [...] Miscellaneous Notes * Telephone Encounter - Samanta GastelumP.NYousif - 10/09/2017 1:59 PM EDTFrom: Briana Farias To: Lev Durham MD Sent: 10/08/2017 8:34 PM EDT Subject: Medication Renewal Request Original authorizing provider: MD Briana Falcon would like a refill of the following medications: risedronate (ACTONEL) 35 MG tablet [Lev Durham MD] Preferred pharmacy: [facility] [address] Comment: documented in this encounter Plan of Treatment Not on file documented as of this encounter Visit Diagnoses Not on filedocumented in this encounter Care Teams Tmr Teacher Relationship Specialty Start Date End Date Lev Durham MD PCP - General Internal Medicine 12/24/14 12/02/19 Nora Gonzales MD PCP - General Internal Medicine 08/30/23 documented as of this encounter
--- OUTSIDE RECORDS SUMMARY | 2024-06-25 10:12 | XMS_ITS | Encounter Summary ---
Author Organization [facility] Address [address] [place] [address] Care Team Providers Care Warehouse Selector Name Role Phone Lev Durham MD Primary Care Provider Unavail able Nora Gonzales MD Primary Care Provider Gretchen vailable Encounter Details Date Type Department Care Team Description 02/05/2018 Manager Java Report Medical Records [address] [place] [address] Julio Miller MD Social History Tobacco Use Types Packs/Day [...] on filedocumented in this encounter Care Teams Warehouse Selector Relationship Specialty Start Date End Date Lev Durham MD PCP - General Internal Medicine 12/24/14 12/02/19 Nora Gonzales MD PCP - General Internal Medicine 08/30/23 documented as of this encounter
--- OUTSIDE RECORDS SUMMARY | 2024-06-25 10:12 | XMS_ITS | Encounter Summary ---
Author Organization [facility] Address [address] [place] [address] Care Team Providers Care Final Inspector Motorcyles Name Role Phone Lev Durham MD Primary Care Provider Unavail able Nora Gonzales MD Primary Care Provider Gretchen vailable Encounter Details Date Type Department Care Team Description 03/18/2015 Release of Information Medical Records [address] [place] [address] Abstract, Provider Social History Tobacco Use Types [...] on filedocumented in this encounter Care Teams Final Inspector Motorcyles Relationship Specialty Start Date End Date Lev Durham MD PCP - General Internal Medicine 12/24/14 12/02/19 Nora Gonzales MD PCP - General Internal Medicine 08/30/23 documented as of this encounter
--- OUTSIDE RECORDS SUMMARY | 2024-06-25 10:12 | XMS_ITS | Encounter Summary ---
Author Organization [facility] Address [facility] [place] [address] Care Team Providers Care Financial Rep Name Role Phone Anshul Waggoner MD Primary [...] Details Date Type Department Care Team Description 02/16/2010 Eye Supercharge Repair Supervisor Report Medical Records [address] [place] [address] Jordi Branch MD Social History Tobacco Use Types Packs/Day [...] on filedocumented in this encounter Care Teams Financial Rep Relationship Specialty Start Date End Date Anshul [...]
--- OUTSIDE RECORDS SUMMARY | 2024-06-25 10:12 | XMS_ITS | Encounter Summary ---
Author Organization [facility] Address [address] [place] [address] Care Team Providers Care Interior Designer Name Role Phone Lev Durham MD Primary Care Provider Unavail able Nora Gonzales MD Primary Care Provider Gretchen vailable Encounter Details Date Type Department Care Team Description 10/30/2017 Release of Information Medical Records [address] [place] [address] Abstract, Provider Social History Tobacco Use Types [...] on filedocumented in this encounter Care Teams Interior Designer Relationship Specialty Start Date End Date Lev Durham MD PCP - General Internal Medicine 12/24/14 12/02/19 Nora Gonzales MD PCP - General Internal Medicine 08/30/23 documented as of this encounter
--- OUTSIDE RECORDS SUMMARY | 2024-06-25 10:12 | XMS_ITS | Encounter Summary ---
Author Organization [facility] Address [address] [place] [address] Care Team Providers Care Sizer Hand Name Role Phone Olayinka Meneses MD Primary Care Provider Unavail able Lev Durham MD Primary Care Provider Unavail Nora Smallwood MD Primary Care Provider Gretchen vailable Reason for Visit * Reason Onset Date Comments Provider Call Back 10/03/2014 Encounter Details Date Type Department Care Team Description 10/03/2014 Telephone General Surgery [address] [place] [address] Phill Mays MD [address] [place] [address] Provider Call Back Social History Tobacco Use Types Packs/Day Years [...] encounter Miscellaneous Notes * Telephone Encounter - Phill Mays MD - 10/06/2014 1:31 PM EDT Please contact me a copy of the CT scan for me to review * Telephone Encounter - Karina Woods M.A. - 10/06/2014 10:47 AM EDT FYI routed to Dr Robertson * Telephone Encounter - Joanne Maldonado - 10/06/2014 10:07 AM EDT FYI I spoke with patient and she will call [facility] to fax over a copy of the CT Scan * Telephone Encounter - Sanam King L.P.N. - 10/03/2014 4:43 PM EDT I left a message for the patient to return my call [phone] asked to have copy of CT faxed to Surgery attn: Dr. Mays [phone]. * Telephone Encounter - Sosa Sainz - 10/03/2014 3:24 PM EDT Pt calling stating we just d/c from [facility] re: low sodium. They did perform at Ct- Scan which showed something in her breast. Pt concerned and would like to know what to do? Please advise. documented in this encounter Plan of Treatment Not on file documented as of this encounter Visit Diagnoses Not on filedocumented in this encounter Care Teams Sizer Hand Relationship Specialty Start Date End Date Olayinka Meneses MD PCP - General Internal Medicine 09/26/14 12/23/14 Lev Durham MD PCP - General Internal Medicine 12/24/14 12/02/19 Nora Gonzales MD PCP - General Internal Medicine 08/30/23 documented as of this encounter
--- OUTSIDE RECORDS SUMMARY | 2024-06-25 10:12 | XMS_ITS | Encounter Summary ---
Author Organization [facility] Address [address] [place] [address] Care Team Providers Care Sewage Screen Operator Name Role Phone Lev Durham MD Primary Care Provider Unavail able Nora Gonzales MD Primary Care Provider Gretchen vailable Encounter Details Date Type Department Care Team Description 11/08/2016 Hospital Medical Records [address] [place] [address] Social History Tobacco Use Types Packs/Day Years [...] on filedocumented in this encounter Care Teams Sewage Screen Operator Relationship Specialty Start Date End Date Lev Durham MD PCP - General Internal Medicine 12/24/14 12/02/19 Nora Gonzales MD PCP - General Internal Medicine 08/30/23 documented as of this encounter
--- OUTSIDE RECORDS SUMMARY | 2024-06-25 10:12 | XMS_ITS | Encounter Summary ---
Author Organization [facility] Address [facility] [place] [address] Care Team Providers Care Prison Librarian Name Role Phone Anshul Waggoner MD Primary [...] Details Date Type Department Care Team Description 07/25/2013 Mechanical Maintenance Engineer Report Medical Records [address] [place] [address] Julio Miller MD Social History Tobacco Use [...] on filedocumented in this encounter Care Teams Prison Librarian Relationship Specialty Start Date End Date Anshul [...]
--- OUTSIDE RECORDS SUMMARY | 2024-06-25 10:12 | XMS_ITS | Encounter Summary ---
Author Organization [facility] Address [facility] [place] [address] Care Team Providers Care Managing Director Name Role Phone Lev Durham MD Primary Care Provider Unavail able Nora Gonzales MD Primary Care Provider Gretchen vailable Encounter Details Date Type Department Care Team Description 08/31/2016 Lockstitch Sleeve Maker Report Medical Records [address] [place] [address] Sera Quintanilla MD [address] [place] [address] [place] [id number] Social History Tobacco Use Types Packs/Day Years [...] on filedocumented in this encounter Care Teams Managing Director Relationship Specialty Start Date End Date Lev Durham MD PCP - General Internal Medicine 12/24/14 12/02/19 Nora Gonzales MD PCP - General Internal Medicine 08/30/23 documented as of this encounter
--- OUTSIDE RECORDS SUMMARY | 2024-06-25 10:12 | XMS_ITS | Encounter Summary ---
Author Organization [facility] Address [facility] [place] [address] Care Team Providers Care Car Loader Name Role Phone Anshul Waggoner MD Primary [...] Details Date Type Department Care Team Description 10/24/2013 It Support Analyst Report Medical Records [address] [place] [address] Soledad Bales Social History Tobacco Use Types Packs/Day Years [...] on filedocumented in this encounter Care Teams Car Loader Relationship Specialty Start Date End Date Anshul [...]
--- OUTSIDE RECORDS SUMMARY | 2024-06-25 10:12 | XMS_ITS | Encounter Summary ---
Author Organization [facility] Address [address] [place] [address] Care Team Providers Care Biology Laboratory Assistant Name Role Phone Lev Durham MD Primary Care Provider Unavail able Nora Gonzales MD Primary Care Provider Gretchen vailable Encounter Details Date Type Department Care Team Description 01/26/2015 Natural Resources Professor Report Medical Records [address] [place] [address] Julio Miller MD Social History Tobacco Use [...] on filedocumented in this encounter Care Teams Biology Laboratory Assistant Relationship Specialty Start Date End Date Lev Durham MD PCP - General Internal Medicine 12/24/14 12/02/19 Nora Gonzales MD PCP - General Internal Medicine 08/30/23 documented as of this encounter
--- OUTSIDE RECORDS SUMMARY | 2024-06-25 10:12 | XMS_ITS | Clinical Summary ---
Author Organization [facility] Address [address] [place] [address] Care Team Providers Care Web Applications Developer Name Role Phone Nora Gonzales MD Primary Care Provider Gretchen vailable Allergies Active Allergy Reactions Severity Noted Date Comments Codeine 05/15/2007 Iv Contrast Dye Low 10/14/2013 Eczematous rash Morphine Sulfate Nausea and Vomiting 09/29/2010 Penicillins 05/15/2007 Salicylates 05/15/2007 Medications Medication Sig Dispensed Refills Start Date End Date Status Probiotic Product (PROBIOTIC DAILY) Cap Take by mouth. 0 Active FIBER OR Take by mouth. 0 Active b complex vitamins capsule Take 1 capsule by mouth. 0 Active Calcium Carbonate-Vitamin D 600-200 MG-UNIT Cap Take 2 Capsules by mouth. 0 Active Turmeric 400 MG Cap Take 1 capsule by mouth. 0 Active amlodipine (NORVASC) 2.5 MG tablet Take 1 Tablet by mouth daily. 90 Tablet 1 05/27/2022 Active meloxicam (MOBIC) 7.5 MG tablet TAKE ONE TABLET BY MOUTH EVERY DAY 0 08/16/2022 Active predniSONE (DELTASONE) 20 MG tablet 3 tab daily for 3 days then 2 tab daily for 3 days then 1 tab daily for 3 days 18 Tablet 0 09/07/2022 Active Active Problems Problem Noted Date Severe obesity (BMI 35.0-39.9) with adilson rbidity 11/01/2021 Fatty liver 04/14/2017 Venous insufficiency 01/16/2017 Leg edema, left 09/22/2015 Overview: Evaluated at [facility] vascular services on 03/18/15. Compression stockings were recommended. 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 Trigeminal neuralgia 12/11/2012 Vertigo 04/04/2012 Radiculitis, lumbosacral 05/25/2010 Osteoporosis 05/16/2007 Hypertension GERD (gastroesophageal reflux disease) Resolved Problems Problem Noted Date Resolved Date Other specified peripheral vascular diseases (CO DE) 10/20/2017 08/05/2018 Skin lesion of breast 10/20/2016 06/01/2020 Personal history of breast cancer 11/04/2013 06/01/2020 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 1 11/01/2021 Immunizations Name Administration Dates Next Due COVID-19 (Moderna) 11/10/2020,10/13/2020 Influenza (> 6 Months) 01/01/2014,2012,02/15/2012,12/01,12/31/2009,12/25/2008,12/11/2007 Influenza H1N1 Pandemic Flu Vaccine 05/25/2009 Influenza vaccine high dose age 65 and over 12/25/2021,01/20/2021,12/21/2018,01/11,01/15/2017,12/20/2015,12/21/2014 Pneumoccoccal(Adult) Polysac charide PPSV23 2008 Pneumococcal Conjugate PCV-13 06/08/2015 Pneumococcal Conjugate PCV-20 05/03/2022 TD (STATE SUPPLIED FOR ADULT S AND CHILDREN) 08/31/2010 Tdap 07/03/2012 Zostavax 07/19/2011 Family History Medical History Relation Name Comments CA Breast Aunt maternal CA Colon Brother x 3 Diabetes Brother x 3 CVA and [place]'s brain tumor Father CA Breast Mother Uterine Cancer Sister 1 x 7 breast cancer , COPD, alzeimer's CA Colon Sister 2 CAD Sister 2 colon cancer dx 'd at 86 Relation Name Status Comments Aunt maternal Brother x 3 Father Mother Sister 1 x 7 Sister 2 Alive Social History Tobacco Use Types Packs/Day Years Used Date Smoking Tobacco: Never Smokeless Tobacco: Never Tobacco Cessation:Counseling Given: Not Answered Alcohol Use Standard Drinks/Week Comments No 0 (1 standard drink = 0.6 oz pur e alcohol) Sex Assigned at Date Recorded Not on file Job Start Date Occupation Industry Not on file Not on file Not on file Last Filed Vital Signs Vital Sign Reading Time Taken Comments Blood Pressure 160/77 08/30/2023 1:03 PM EDT Pulse 99 08/30/2023 1:03 PM EDT Temperature 36.6 ??C (97.9 ??F) 09/07/2022 12:37 PM E DT Respiratory Rate 16 09/07/2022 12:37 PM EDT Oxygen Saturation 96% 06/03/2019 11:37 AM EDT Inhaled Oxygen Concentration - - Weight 68.2 kg (150 lb 6.4 oz) 08/30/2023 1:03 P M EDT Height 160 cm (5' 3 ) 08/30/2023 1:03 PM EDT Body Mass Index 26.64 08/30/2023 1:03 PM EDT Plan of Treatment Health Maintenance Due Date Last Done Comments FALL RISK ASSESSMENT 2002 SHINGLES VACCINE (2 of 3) 09/13/2011 07/19/2011 MAMMOGRAM 06/08/2022 06/08/2021, 05/25, 06/05/2019, Additional history exists DTAP/TDAP/TD (2 - Td or Tdap) 07/03/2022 07/03/2012, 08/31/2010 Breast Cancer High Risk??Screening??(Annual Breast MRI) 12/09/2022 12/09/2021 DEPRESSION SCREEN 02/24/2023 02/24/2022 BONE DENSITY SCREENING 11/24/2023 , 01/05/2017, 05/09/2014, Additional history exists Covid-19 Vaccine (3 - 2022-2 4 season) 2023 11/10/2020, 10/13/2020 INFLUENZA (#1) 2023 12/25/2021, 12/26, 12/21/2018, Additional history exists BMI CHECK/ADVISE 03/27/2024 05/27/2022, 12/2021, 12/03/2018, Additional history exists CHOLESTEROL SCREENING 01/20/2026 01/20/2021 , 06/03/2019, 05/08/2014, Additional history exists PNEUMOCOCCAL VACCINE Completed 05/03/2022, 06/08/2015, [address] [place] [address] Briana Farias PVCA - Cardiology Self [address] [place] [address] [address] [place], [place] Care Teams Web Applications Developer Relationship Specialty Start Date End Date Nora Gonzales MD PCP - General Internal Medicine 08/30/23
--- OUTSIDE RECORDS SUMMARY | 2024-06-25 10:12 | XMS_ITS | Encounter Summary ---
Author Organization [facility] Address [facility] [place] [address] Care Team Providers Care Diamond Mounter Name Role Phone Nora Gonzales MD Primary Care Provider Gretchen vailable Encounter Details Date Type Department Care Team Description 08/24/2023 Orders Only Vascular Surgery - [address] [id number] Sera Quintanilla MD [address] [place] [id number] PVD (peripheral vascular disease) (HCC); Claudication (HCC) Social History Tobacco Use Types Packs/Day Years [...] on file documented as of this encounter Procedures Procedure Name Priority Date/Time Associated Diagnosis Comments LOWER EXTREMITY ARTERY STUDY, COMPL WITH KATERYNA Routine 08/22/2023 PVD (peripheral vascular disease) (HCC) Claudication (HCC) documented in this encounter Results * LOWER EXTREMITY ARTERY STUDY, COMPL WITH KATERYNA (08/22/2023) Sera Quintanilla MD VASCULAR ULTRASO UND documented in this encounter Visit Diagnoses Diagnosis PVD (peripheral vascular disease) (HCC) Peripheral vascular disease, unspecified Claudication (HCC) Peripheral vascular disease, unspecified documented in this encounter Care Teams Diamond Mounter Relationship Specialty Start Date End Date Nora Gonzales MD PCP - General Internal Medicine 08/30/23 documented as of this encounter
--- OUTSIDE RECORDS SUMMARY | 2024-06-25 10:12 | XMS_ITS | Encounter Summary ---
Author Organization [facility] Address [address] [place] [address] Care Team Providers Care Oncology Social Work Name Role Phone Nora Gonzales MD Primary Care Provider Gretchen vailable Reason for Visit * Reason Onset Date Comments Naphthol Soaping Machine Operator Feedback 07/25/2022 Patient returned call for schedule appt. Encounter Details Date Type Department Care Team Description 07/25/2022 Telephone Adult Medicine [address] [address] Margie Wallis MD [address] [place] [address] Naphthol Soaping Machine Operator Feedback (Patient returned call for schedule appt.) Social History Tobacco Use Types Packs/Day Years [...] suspected to have Coronavirus/COVID-19? No / Unsure 07/01/2022 10:47 AM EDT documented as of this encounter Miscellaneous Notes * Telephone Encounter - Simon Perdomo - 07/25/2022 9:53 AM EDT Patient returned Alesia's call to schedule appt for Vascular surgery. Transferred call to Alesia. documented in this encounter Plan of Treatment Not on file documented as of this encounter Visit Diagnoses Not on filedocumented in this encounter Care Teams Oncology Social Work Relationship Specialty Start Date End Date Nora Gonzales MD PCP - General Internal Medicine 08/30/23 documented as of this encounter
--- OUTSIDE RECORDS SUMMARY | 2024-06-25 10:12 | XMS_ITS | Encounter Summary ---
Author Organization [facility] Address [facility] [place] [address] Care Team Providers Care Production Corrugator Name Role Phone Anshul Waggoner MD Primary [...] Details Date Type Department Care Team Description 12/18/2013 Release of Information Medical Records [address] [place] [address] Abstract, Provider Social History Tobacco Use Types [...] on filedocumented in this encounter Care Teams Production Corrugator Relationship Specialty Start Date End Date Anshul [...]
--- OUTSIDE RECORDS SUMMARY | 2024-06-25 10:12 | XMS_ITS | Encounter Summary ---
Author Organization [facility] Address [address] [place] [address] Care Team Providers Care Naval Aircrewman Tactical Helicopter Name Role Phone Olayinka Meneses MD Primary Care Provider Unavail able Lev Durham MD Primary Care Provider Unavail able Olayinka Meneses MD Primary Care Provider Unavail able Lev Durham MD Primary Care Provider Unavail able Nora Gonzales MD Primary Care Provider Gretchen vailable Encounter Details Date Type Department Care Team Description 04/30/2014 Systems Librarian Report Medical Records [address] [place] [address] Soledad Bales Social History Tobacco Use Types [...] on filedocumented in this encounter Care Teams Naval Aircrewman Tactical Helicopter Relationship Specialty Start Date End Date Olayinka [...]
--- OUTSIDE RECORDS SUMMARY | 2024-06-25 10:12 | XMS_ITS | Encounter Summary ---
Author Organization [facility] Address [facility] [place] [address] Care Team Providers Care Hat Model Name Role Phone Anshul Waggoner MD Primary [...] Details Date Type Department Care Team Description 08/08/2012 Operation Shift Supervisor Report Medical Records [address] [place] [address] Andres Domingo PA-C Social History Tobacco Use Types Packs/Day Years [...] on filedocumented in this encounter Care Teams Hat Model Relationship Specialty Start Date End Date Anshul [...]
--- OUTSIDE RECORDS SUMMARY | 2024-06-25 10:13 | XMS_ITS | Encounter Summary ---
Author Organization [facility] Address [address] [place] [address] Care Team Providers Care Residential Lawn Specialist Name Role Phone Lev Durham MD Primary Care Provider Unavail able Nora Gonzales MD Primary Care Provider Gretchen vailable Encounter Details Date Type Department Care Team Description 07/18/2017 Tour Bus Driver Report Medical Records [address] [place] [address] Polly Veras MD Social History Tobacco Use [...] on filedocumented in this encounter Care Teams Residential Lawn Specialist Relationship Specialty Start Date End Date Lev Durham MD PCP - General Internal Medicine 12/24/14 12/02/19 Nora Gonzales MD PCP - General Internal Medicine 08/30/23 documented as of this encounter
--- OUTSIDE RECORDS SUMMARY | 2024-06-25 10:13 | XMS_ITS | Encounter Summary ---
Author Organization [facility] Address [facility] [place] [address] Care Team Providers Care Integrity Specialist Name Role Phone Nora Gonzales MD Primary Care Provider Gretchen vailable Reason for Visit * Reason Onset Date Comments Cork Molder Feedback 09/23/2020 In network Ortho pedics order needed Encounter Details Date Type Department Care Team Description 09/23/[address] [facility] [address] [place] [address] Margie Wallis MD [address] [place] [address] Cork Molder Feedback (In network Orthopedics order needed) Social History Tobacco Use Types Packs/Day Years [...] encounter Miscellaneous Notes * Telephone Encounter - Juliet Stevens PA-C - 09/24/2020 8:20 AM EDT Signed. * Telephone Encounter - Elina Wilson - 09/23/2020 11:52 AM EDT Please review this patients new referral request. The referral has been pended. Please complete thefollowing: If approved> sign order If denied>please give instructions and route to your practice nursing pool. Practice nurse should inform referrals and the patient if denied. Patient is requesting a new referrral to see Dr. Bunrs for DX bilateral knee pain Thank you [facility] Orthopedics Navigator [phone] [facility] documented in this encounter Plan of Treatment Not on file documented as of this encounter Visit Diagnoses Not on filedocumented in this encounter Care Teams Integrity Specialist Relationship Specialty Start Date End Date Nora Gonzales MD PCP - General Internal Medicine 08/30/23 documented as of this encounter
--- OUTSIDE RECORDS SUMMARY | 2024-06-25 10:13 | XMS_ITS | Encounter Summary ---
Author Organization [facility] Address [address] [place] [address] Care Team Providers Care Maintenance Worker Swimming Pool Name Role Phone Lev Durham MD Primary Care Provider Unavail able Nora Gonzales MD Primary Care Provider Gretchen vailable Encounter Details Date Type Department Care Team Description 03/24/2017 Service Worker Helper Report Medical Records [address] [place] [address] Flaquito Momin MD Social History Tobacco Use [...] on filedocumented in this encounter Care Teams Maintenance Worker Swimming Pool Relationship Specialty Start Date End Date Lev Durham MD PCP - General Internal Medicine 12/24/14 12/02/19 Nora Gonzales MD PCP - General Internal Medicine 08/30/23 documented as of this encounter
--- OUTSIDE RECORDS SUMMARY | 2024-06-25 10:13 | XMS_ITS | Encounter Summary ---
Author Organization [facility] Address [address] [place] [address] Care Team Providers Care Manager Asset Management Name Role Phone Lev Durham MD Primary Care Provider Unavail able Nora Gonzales MD Primary Care Provider Gretchen vailable Encounter Details Date Type Department Care Team Description 01/26/2017 Lock Maintenance Supervisor Report Medical Records [address] [place] [address] Abstract, Provider Social History Tobacco Use Types [...] on filedocumented in this encounter Care Teams Manager Asset Management Relationship Specialty Start Date End Date Lev Durham MD PCP - General Internal Medicine 12/24/14 12/02/19 Nora Gonzales MD PCP - General Internal Medicine 08/30/23 documented as of this encounter
--- OUTSIDE RECORDS SUMMARY | 2024-06-25 10:13 | XMS_ITS | Clinical Summary ---
Demographics Address [address] [place] [address] Home Phone Preferred Language Upper Sorbian Marital Status Hindu Affiliation Unknown Race White Ethnic Group Not or Lati no Author Organization [facility] Address [address] [place] [address] Care Team Providers Care Skin Washer Name Role Phone Lev Durham MD Primary Care Provider [phone] Allergies Active Allergy Reactions Criticality Noted Date Comments Aspirin 02/01/2017 Penicillins 02/01/2017 Medications Medication Sig Dispensed Refills Start Date End Date Status Probiotic Product (PROBIOTIC PO) Take by mouth. 0 Active amLODIPine (NORVASC) tablet 5 mg Take 5 mg by mouth daily. 0 Active furosemide (LASIX) 20 MG tablet Take 20 mg by mouth 2 (two) times a day. 0 Active meclizine (ANTIVERT) 25 MG tablet Take 25 mg by mouth daily. 0 Active BACLOFEN PO Take by mouth. 0 Active omeprazole (PRILOSEC) 20 MG capsule Take 20 mg by mouth daily. 0 Active fluticasone (FLONASE) 50 MCG/ACT nasal spray spray/apply 1 spray in each nostril daily. 0 Active CALCIUM-VITAMIN D PO Take by mouth daily. 0 Active diltiazem (CARDIZEM CD) 240 MG 24 hr capsule Take 240 mg by mouth daily. 0 Active Active Problems No known active problems Family History Medical History Relation Name Comments Cancer Maternal Aunt breast Cancer Mother ovarian Cancer Sister 1 breast Cancer Sister 2 ovarian Relation Name Status Comments Maternal Aunt Mother Sister 1 Sister 2 Social History Tobacco Use Types Packs/Day Years Used Date Smoking Tobacco: Never Smokeless Tobacco: Never Alcohol Use Standard Drinks/Week Comments No 0 (1 standard drink = 0.6 oz pur e alcohol) Sex and Gender Information Value Date Recorded Sex Assigned at Not on file Gender Identity Not on file Sexual Orientation Not on file Last Filed Vital Signs Vital Sign Reading Time Taken Comments Blood Pressure 171/80 04/30/2019 11:51 AM EST Pulse 103 04/30/2019 11:51 AM EST Temperature 36 ??C (96.8 ??F) 04/30/2019 11:51 AM EST Respiratory Rate - - Oxygen Saturation - - Inhaled Oxygen Concentration - - Weight 76.7 kg (169 lb) 04/30/2019 11:51 AM EST Height 162.6 cm (5' 4 ) 04/30/2019 11:51 AM EST Body Mass Index 29.01 04/30/2019 11:51 AM EST Plan of Treatment Health Maintenance Due Date Last Done Comments COVID-19 Vaccine (#1) 1935 Depression Screening 1949 Preventative Health Evaluation 07/01/1953 Shingrix-Zoster Vaccine (1 of 2) 07/01/1987 Fall Risk Assessment 2002 Osteoporosis Screening (DEXA Scan) 2002 RSV Adult > 60+ Yrs or (1 - 1-dose 75+ series) 2012 DTap / Tdap / Td (2 - Td or Tdap) 07/03/2022 07/03/2012 Influenza Vaccine (#1) 2023 9, 01/15/2017, 12/20/2015, Additional history exists Pneumococcal Vaccine Completed 06/08/2015, 07/01/19 09 Hepatitis B Vaccines Aged Out No long er eligible based on patient's age to complete this topic RSV Ped < 20 months Aged Out No longe r eligible based on patient's age to complete this topic Guarantor Name Account Type Relation to Patient Date of Phone Billing Address Briana Farias Personal/Family Self 1935 [address] [place] [address] Care Teams Skin Washer Relationship Specialty Start Date End Date Lev Durham MD [address] [place] [address] PCP - General Internal Medicine 02/06/17
--- OUTSIDE RECORDS SUMMARY | 2024-06-25 10:13 | XMS_ITS | Clinical Summary ---
Author Organization [facility] Address [address] [place] [address] Phone Care Team Providers Care Home Care Music Therapist Name Role Phone Margie Wallis MD Primary Care Provider [phone] Allergies Active Allergy Reactions Criticality Noted Date [...] lower limb 09/22/201503/2020 Overview (09/24/2020): Evaluated at [facility] vascular services on 03/18/15. Compression stockings were [...] patient's age to complete this topic Insurance [facility] [place]ICAID [place] [facility] [place]ID [place] Care Teams Home Care Music Therapist Relationship Specialty Start Date End Date Margie Wallis MD PCP - General Internal Medicine 09/30/20
--- OUTSIDE RECORDS SUMMARY | 2024-06-25 10:13 | XMS_ITS | Encounter Summary ---
Author Organization [facility] Address [facility] [place] [address] Care Team Providers Care Lug Loader Name Role Phone Nora Gonzales MD Primary Care Provider Gretchen vailable Encounter Details Date Type Department Care Team Description 05/14/2020 Orders Only Radiology - [place] [address] [place] [id number] Margie Wallis MD [address] [place] [address] Social History Tobacco Use Types Packs/Day Years [...] on filedocumented in this encounter Care Teams Lug Loader Relationship Specialty Start Date End Date Nora Gonzales MD PCP - General Internal Medicine 08/30/23 documented as of this encounter
--- OUTSIDE RECORDS SUMMARY | 2024-06-25 10:13 | XMS_ITS | Encounter Summary ---
Author Organization [facility] Address [address] [place] [address] Care Team Providers Care Vertical Lathe Operator Name Role Phone Lev Durham MD Primary Care Provider Unavail able Nora Gonzales MD Primary Care Provider Gretchen vailable Encounter Details Date Type Department Care Team Description 02/06/2017 Traveling Missionary Report Medical Records [address] [place] [address] Julio Miller MD Social History Tobacco Use [...] on filedocumented in this encounter Care Teams Vertical Lathe Operator Relationship Specialty Start Date End Date Lev Durham MD PCP - General Internal Medicine 12/24/14 12/02/19 Nora Gonzales MD PCP - General Internal Medicine 08/30/23 documented as of this encounter
--- OUTSIDE RECORDS SUMMARY | 2024-06-25 10:13 | XMS_ITS | Encounter Summary ---
Author Organization [facility] Address [address] [place] [address] Care Team Providers Care Commercial Attorney Name Role Phone Lev Durham MD Primary Care Provider Unavail able Nora Gonzales MD Primary Care Provider Gretchen vailable Encounter Details Date Type Department Care Team Description 09/19/2018 Boiler Tenders Supervisor Report Medical Records [address] [place] [address] Flaquito Momin MD Social History Tobacco Use [...] on filedocumented in this encounter Care Teams Commercial Attorney Relationship Specialty Start Date End Date Lev Durham MD PCP - General Internal Medicine 12/24/14 12/02/19 Nora Gonzales MD PCP - General Internal Medicine 08/30/23 documented as of this encounter
--- OUTSIDE RECORDS SUMMARY | 2024-06-25 10:13 | XMS_ITS | Encounter Summary ---
Author Organization [facility] Address [address] [place] [address] Care Team Providers Care Windows Server Architect Name Role Phone Lev Durham MD Primary Care Provider Unavail able Nora Gonzales MD Primary Care Provider Gretchen vailable Encounter Details Date Type Department Care Team Description 03/13/2019 Supervisor Histology Report Medical Records [address] [place] [address] Flaquito Momin MD Social History Tobacco Use [...] on filedocumented in this encounter Care Teams Windows Server Architect Relationship Specialty Start Date End Date Lev Durham MD PCP - General Internal Medicine 12/24/14 12/02/19 Nora Gonzales MD PCP - General Internal Medicine 08/30/23 documented as of this encounter
--- OUTSIDE RECORDS SUMMARY | 2024-06-25 10:13 | XMS_ITS | Encounter Summary ---
Author Organization [facility] Address [address] [place] [address] Care Team Providers Care Automotive Glass Specialist Name Role Phone Nora Gonzales MD Primary Care Provider Gretchen vailable Encounter Details Date Type Department Care Team Description 03/25/2020 Teleprinter Installer Report Medical Records [address] [place] [address] Flaquito Momin MD Social History Tobacco Use [...] on filedocumented in this encounter Care Teams Automotive Glass Specialist Relationship Specialty Start Date End Date Nora Gonzales MD PCP - General Internal Medicine 08/30/23 documented as of this encounter
--- OUTSIDE RECORDS SUMMARY | 2024-06-25 10:13 | XMS_ITS | Encounter Summary ---
Author Organization [facility] Address [facility] [place] [address] Care Team Providers Care Divorce Mediator Name Role Phone Nora Gonzales MD Primary Care Provider Gretchen vailable Encounter Details Date Type Department Care Team Description 06/10/2020 Orders Only Adult Medicine [address] [address] Juliet Stevens PA-C [address] [place] [id number] Abnormal mammogram of left breast Social History Tobacco Use Types Packs/Day Years Used Date Smoking Tobacco: Never Smokeless Tobacco: Never Alcohol Use Standard Drinks/Week Comments No 0 (1 standard drink = 0.6 oz pur e alcohol) Sex Assigned at Date Recorded Not on file Job Start Date Occupation Industry Not on file Not on file Not on file COVID-19 Exposure Response Date Recorded In the last month, have you been in contact with someone who was confirmed or suspected to have Coronavirus / COVID-19? Unable to assess 05/29/2020 9:19 AM EST documented as of this encounter Plan of Treatment Not on file documented as of this encounter Procedures Procedure Name Priority Date/Time Associated Diagnosis Comments DX MAMMO INCL CAD UNI Routine 06/05/2020 Abnormal mammogram of left breast documented in this encounter Results * DX MAMMO INCL CAD UNI (06/05/2020) Juliet Stevens PA-C MAMMOGRAPHY documented in this encounter Visit Diagnoses Diagnosis Abnormal mammogram of left breast documented in this encounter Care Teams Divorce Mediator Relationship Specialty Start Date End Date Nora Gonzales MD PCP - General Internal Medicine 08/30/23 documented as of this encounter
--- OUTSIDE RECORDS SUMMARY | 2024-06-25 10:13 | XMS_ITS | Encounter Summary ---
Author Organization [facility] Address [address] [place] [id number] Care Team Providers Care Brick Paver Name Role Phone Nora Gonzales MD Primary Care Provider Gretchen vailable Reason for Visit * Reason Onset Date Comments Montessori Preschool Teacher Feedback 07/22/2021 Dr. Branch Encounter Details Date Type Department Care Team Description 07/22/2021 Pt. Non Urgent Medical Question Adult Medicine [address] [address] Margie Wallis MD [address] [place] [id number] Social History Tobacco Use Types Packs/Day Years [...] encounter Miscellaneous Notes * Telephone Encounter - Anna Godfrey M.A. - 07/22/2021 1:05 PM EDTFrom: Briana Farias To: Juan Wallis Sent: 07/22/2021 1:03 PM EDT Subject: Referral PAZ going to have to have I surgery and my Dr needs a referral.the I doctor is Dr branch [address] [place] [address] documented in this encounter Plan of Treatment Not on file documented as of this encounter Visit Diagnoses Not on filedocumented in this encounter Care Teams Brick Paver Relationship Specialty Start Date End Date Nora Gonzales MD PCP - General Internal Medicine 08/30/23 documented as of this encounter
--- OUTSIDE RECORDS SUMMARY | 2024-06-25 10:13 | XMS_ITS | Encounter Summary ---
Author Organization [facility] Address [address] [place] [address] Care Team Providers Care Editor Newspaper Name Role Phone Lev Durham MD Primary Care Provider Unavail able Nora Gonzales MD Primary Care Provider Gretchen vailable Encounter Details Date Type Department Care Team Description 06/08/2017 Home Theater Experience Expert Report Medical Records [address] [place] [address] Polly Veras MD Social History Tobacco Use [...] on filedocumented in this encounter Care Teams Editor Newspaper Relationship Specialty Start Date End Date Lev Durham MD PCP - General Internal Medicine 12/24/14 12/02/19 Nora Gonzales MD PCP - General Internal Medicine 08/30/23 documented as of this encounter
--- OUTSIDE RECORDS SUMMARY | 2024-06-25 10:13 | XMS_ITS | Encounter Summary ---
Author Organization [facility] Address [facility] [place] [address] Care Team Providers Care Teacher Physically Impaired Name Role Phone Lev Durham MD Primary Care Provider Unavail able Nora Gonzales MD Primary Care Provider Gretchen vailable Encounter Details Date Type Department Care Team Description 06/04/2018 Orders Only Adult Medicine [address] [address] Sweetie Dong NP Essential hypertension (Primary Dx) Social History Tobacco Use Types [...] documented as of this encounter Results * COMPREHENSIVE METABOLIC PANEL (06/04/2018 9:29 AM EDT) Blood Urea Nitrogen 19 5 - 25 mg/dL 06/04/2018 2:44 PM EDT [facility] CREAT 0.76 0.5 - 1.1 mg/dL 06/04/2018 2:44 PM EDT [facility] GLOMERULAR FILTRATION RATE > 60 06/04/2018 2:44 PM EDT [facility] Comment: If patient is -Ivorian, multiply result by 1.21 Chronic Kidney Disease: < 60 ml/min/1.73 square meters Kidney Failure: < 15 ml/min/1.73 square meters NA 141 133 - 145 mmol/L 06/04/2018 2:44 PM EDT [facility] K 4.1 3.5 - 5.5 mmol/L 06/04/2018 2:44 PM EDT [facility] CL 107 96 - 110 mmol/L 06/04/2018 2:44 PM EDT [facility] CARBON DIOXIDE (CO2) 28 21 - 32 mmol/L 06/04/2018 2:44 PM EDT [facility] ANION GAP 6 3 - 11 06/04/2018 2:44 PM EDT [facility] CALCIUM 8.8 8.5 - 10.5 mg/dL 06/04/2018 2:44 PM EDT [facility] Albumin 3.9 3.2 - 5.0 G/dL 06/04/2018 2:44 PM EDT [facility] GLUCOSE 94 70 - 100 mg/dL 06/04/2018 2:54 PM EDT [facility] Comment:Reference range appl icable to fasting specimens only TOTAL PROTEIN (TP) 6.9 6.0 - 8.0 G/dL 06/04/2018 2:54 PM EDT [facility] BILIRUBIN TOTAL 0.5 0.0 - 1.4 mg/dL 06/04/2018 2:54 PM EDT [facility] SGOT 26 10 - 42 U/L 06/04/2018 2:54 PM EDT [facility] SGPT 21 10 - 60 U/L 06/04/2018 2:54 PM EDT [facility] ALK PHOS 97 42 - 121 U/L 06/04/2018 2:54 PM EDT [facility] 06/04/2018 9:29 AM EDT 06/04/2018 9:31 AM EDT Sweetie Dong CHIEF MEDICAL TECHNOLOGIST LAB [facility] documented in this encounter Visit Diagnoses Diagnosis Essential hypertension- Primary Unspecified essential hypertension documented in this encounter Care Teams Teacher Physically Impaired Relationship Specialty Start Date End Date Lev Durham MD PCP - General Internal Medicine 12/24/14 12/02/19 Nora Gonzales MD PCP - General Internal Medicine 08/30/23 documented as of this encounter
== END 2024-06-24 09:13 | disposition home or self-care (01) ==
LOC: HO.HOSX 09:12
PROVIDERS: Visit Provider Physician Assistant
DX: Z13.89 Encounter for screening for other disorder (principal)

== ENCOUNTER 2024-07-31 08:26 | Outpatient (REF) | payer OTHER, SELFPAY ==
--- OUTSIDE RECORDS SUMMARY | 2024-07-31 08:37 | XMS_ITS | Clinical Summary ---
Demographics Address [address] [place] [address] Home Phone Preferred Language Moldovan Marital Status Confucianism Affiliation Unknown Race White Ethnic Group Not or Lati no Author Organization [facility] Address [address] [place] [address] Care Team Providers Care Import Clerk Name Role Phone Lev Durham MD Primary Care Provider [phone] Allergies Active Allergy Reactions Criticality Noted Date [...] [address] [place] [id number] Care Teams Import Clerk Relationship Specialty Start Date End Date Lev Durham MD [address] [place] [address] PCP - General Internal Medicine 02/06/17
--- OUTSIDE RECORDS SUMMARY | 2024-07-31 08:37 | XMS_ITS | Clinical Summary ---
Author Organization [facility] Address [address] [place] [address] Phone Care Team Providers Care Pipeliner Name Role Phone Margie Wallis MD Primary Care Provider [phone] Allergies Active Allergy Reactions Criticality Noted Date [...] lower limb 09/22/201503/2020 Overview (09/24/2020): Evaluated at [facility] vascular services on 03/18/15. Compression [...] cyst 05/25/2010 09/24/2020 Osteoporosis 05/16/2007 09/24/2020 Immunizations Immunization Administration Dates Next Due H1N1 Inj Preservative [...] Due Date Last Done Comments Influenza Vaccine (Season Ended) 2024 12/25/2021, 01/20/2021, 12/21/2018, Additional history exists Pneumococcal Vaccine: 50+ Years Completed 06/08/2015, 2008 Pneumococcal Vaccine: Peds (0 to 5 Years) and At-Risk Patients (6 to 49 Years) Discontinued 06/08/2015, 2008 Hepatitis B Vaccine Aged Out No longe r eligible based on patient's age to complete this topic Insurance [facility] Medicaid [place] [facility] Medicaid [place] Care Teams Pipeliner Relationship Specialty Start Date End Date Margie Wallis MD PCP - General Internal Medicine 09/30/20
== END 2024-07-31 08:27 | disposition home or self-care (01) ==
LOC: HO.MAMMO 08:26
PROVIDERS: PCP Internal Medicine; Visit Provider Internal Medicine
DX: Z12.31 Encounter for screening mammogram for malignant neoplasm of breast (principal)
CPT/HCPCS: 77063; 77067

== ENCOUNTER → 2024-07-31 09:15 | Outpatient (BNV) | payer OTHER, SELFPAY | PROVIDERS: PCP Internal Medicine; Visit Provider Internal Medicine | DX: Z12.31 Encounter for screening mammogram for malignant neoplasm of breast (principal) | CPT/HCPCS: 77063; 77067 ==

== ENCOUNTER 2024-08-26 12:51 | Emergency (ER) | payer OTHER, SELFPAY ==
--- NOTE | ~2024-08-26 | CT_ITS ---
CLINICAL HISTORY: obstipation ?SBO on KUB CT of the abdomen and pelvis without intravenous contrast. No comparison. Findings: There is mild motion artifact. The liver is unremarkable. Cholecystectomy. No hydronephrosis. Spleen size is upper limits of normal. The pancreas is unremarkable. No abdominal aortic aneurysm. There is prominent stool throughout the colon. No definite diverticulitis is identified. Normal appendix. No bowel obstruction. The bladder is unremarkable. Hysterectomy. No free fluid in the pelvis. There is mild scarring in the lower lungs. Impression: Prominent stool throughout the colon. No bowel obstruction or definite diverticulitis. This document has been electronically signed by: Darryn Tinsley MD on 08/26/2024 18:44:36
--- NOTE | ~2024-08-26 | XR_ITS ---
EXAMINATION: XR ABDOMEN KUB CLINICAL INDICATION: ?constipation, belching COMPARISON: None available. TECHNIQUE: AP view of the abdomen. FINDINGS: Extensive fecal material is seen throughout the colon and rectum. Findings are suggestive of obstipation. There are dilated small bowel loops in the central abdomen suggesting a possible secondary small bowel obstruction or ileus. There are cholecystectomy clips present. No organomegaly. Lung bases are clear. No focal osseous abnormality. XR/XR KUB IMPRESSION: 1. Obstipation. 2. Possible resultant small bowel obstruction or ileus. Electronically signed by: Art Rivera MD 08/26/2024 03:48 PM EDT
[2024-08-26 13:05] VITALS: BP 145/71; BP 188/86; PULSE 105; PULSE 107; RESP 18; TEMP 36.4; O2SAT 96; BMI 27.1
--- NOTE | 2024-08-26 13:08 | ECG_ITS ---
Test Reason : cp Blood Pressure : */* mmHG Vent. Rate : 93 BPM Atrial Rate : 93 BPM P-R Int : 168 ms QRS Dur : 74 ms QT Int : 364 ms P-R-T Axes : 67 76 36 degrees QTcB Int : 452 ms Normal sinus rhythm Normal ECG When compared with ECG of 16-Sep-2010 11:09, No significant changes seen Referred By: Trina Nielsen Electronically Signed By: HEATHER LABOY
--- NOTE | 2024-08-26 13:10 | ED.CHESTPAIN ---
HPI - Chest Pain General Chief Complaint: Chest Pain Stated Complaint: FALL,CP,SOB,96%,NITRO GIVEN PER EMS Time Seen by Provider: 08/26/24 13:01 Source: patient, family (daughter) and EMS Mode of arrival: EMS Limitations: no limitations History of Present Illness ED Provider: TRINA NIELSEN PA-C HPI narrative: 89 year old female with pmhx significant for GERD, HTN, anxiety presents to the ED today via EMS from PT for evaluation s/p mechanical fall. Patient reports that while at PT, her left knee gave out from under her, causing her to fall to the ground, landing on her buttocks. She was assited back to standing however began to feel epigastric/ sternal chest discomfort. She describes this as gas pain . Since this time has been belching 2-3x every 30 seconds or so. She reports history of similar in the past. Symptoms were treated with GI cocktail with improvement. She currently takes Tagamet for her GERD. She has been compliant with this medication. She admits to baseline constipation. States it is normal for her to go 4-5 days without a BM. She is not currently on a bowel regimen. Her last BM was yesterday. Reports passing hard stool which is not normal for her. She is not passing flatus. Denies any lower abdominal pain, nausea, vomiting, urinary symptoms, or diarrhea. Surgical history includes cholecystectomy, hysterectomy. Related Data Home Medications ?Medication ?Instructions ?Recorded ?Confirmed meclizine 25 mg tablet 25 mg PO DAILY PRN Vertigo 01/27/23 05/26/23 sertraline 25 mg tablet 25 mg PO BEDTIME 05/25/23 05/26/23 calcium 500 mg (as 1 tab PO BID 05/26/23 05/26/23 carbonate)-vitamin D3 3.125 mcg (125 unit) tablet cimetidine 200 mg tablet 200 mg PO DAILY 05/26/23 05/26/23 lactobacillus combination no.4 3 3,000 mmu cells PO DAILY 05/26/23 05/26/23 billion cell capsule (Probiotic) turmeric 400 mg capsule 400 mg PO DAILY 05/26/23 05/26/23 Vitamin B-12 06/06/23 fluticasone furoate 50 inhalation 06/19/24 mcg/actuation blister powder for inhalation naproxen 500 mg tablet 500 mg PO BID 06/19/24 Previous Rx's ?Medication ?Instructions ?Recorded acetaminophen 325 mg tablet 650 mg (2 x 325 mg) PO Q6H PRN 06/07/23 Pain, Mild (Pain Scale 1-3) 30 days #240 tabs amlodipine 2.5 mg tablet 2.5 mg PO DAILY 90 days #90 tabs 10/13/23 docusate sodium 100 mg capsule 100 mg PO BID #30 caps 08/26/24 polyethylene glycol 3350 17 17 g PO BID #119 grams 08/26/24 gram/dose oral powder (Miralax) Allergies Allergy/AdvReac Type Severity Reaction Status Date / Time Iodinated Contrast Media Allergy Severe Unresponsiv Verified 08/26/24 16:09 [IV Contrast Dye] e acetaminophen [From Percocet] Allergy Unknown Vomiting Verified 08/26/24 13:07 aspirin [Aspirin] Allergy Unknown NOSEBLEEDS Verified 08/26/24 13:07 codeine [Codeine] Allergy Unknown N/V Verified 08/26/24 13:07 morphine [MORPHINE] Allergy Unknown NAUSEA/VOMI Verified 08/26/24 13:07 TING oxycodone [From Percocet] Allergy Unknown Vomiting Verified 08/26/24 13:07 Penicillins Allergy Unknown FACIAL Verified 08/26/24 13:07 SWELLING Review of Systems Review of Systems: Constitutional: No fever, chills, fatigue, night sweats, weight changes ENT/Mouth: No ear pain, hearing loss, nasal congestion, sinus pain, rhinorrhea, sore throat Eyes: No eye pain, swelling, redness, vision changes, discharge Cardio: No chest pain, palpitations, SORENSEN, orthopnea, peripheral edema Pulm: No SOB, cough, sputum, wheezing, dyspnea, hemoptysis GI: No nausea, vomiting, hematemesis, abdominal pain, diarrhea, hematochezia, melena, +constipation, +belching : No irregular bleeding, dysuria, frequency, urgency, hesitancy, hematuria, flank pain, urinary flow changes, urinary incontinence or retention MSK: No back pain, neck pain, joint pain, myalgias Skin: No lesions, rashes Neuro: No weakness, numbness, paresthesias, LOC, dizziness, headache Psych: No anxiety/panic, depression, SI/HI, AH/VH All other systems reviewed and are negative. [facility] Past Medical History Attestation statement: The following information was validated with the patient. Source: old records reviewed, obtained from family (daughter) and nursing notes reviewed Medical History HTN (hypertension) Primary osteoarthritis of knees, bilateral Back pain Anxiety Cataract Vertigo Leg edema, left Fatty liver Arthritis Trigeminal neuralgia GERD (gastroesophageal reflux disease) Breast cancer PVD (peripheral vascular disease) Surgical History History of esophagogastroduodenoscopy (EGD) H/O colonoscopy History of bilateral cataract extraction History of left salpingo-oophorectomy Hx of hysterectomy History of nasal polypectomy Hx of cholecystectomy History of lumpectomy of left breast History of surgical removal of meniscus of knee Family History Family History Mother Cancer Brother Diabetes Social History Social History Household Members: Children Household Members Other:: Ex DIL Housing: Apartment Are you a primary nonfarm animal caretaker to a significant other at home: No Do you presently have visiting nurse or other home services: No Alcohol intake: never Patient Tobacco Use Status: Never used Tobacco Physical Exam Vital Signs: Vital Signs: Last Vital Signs Temp 98 F 08/26/24 22:01 Pulse 86 08/26/24 22:01 Resp 19 08/26/24 22:01 BP 154/73 H 08/26/24 22:01 Pulse Ox 97 08/26/24 22:01 O2 Del Method Room Air 08/26/24 22:01 BMI result Body Mass Index 27.1 Hypertensive, vitals are otherwise WNL General: Well appearing, in no acute distress. Skin: Warm, dry, intact. No rashes or lesions. Head: Normocephalic, atraumatic. EENT: Hearing is intact b/l. Conjunctiva clear. Sclera is anicteric. PERRLA. EOM intact. Moist mucous membranes.? Neck: Supple without LAD Cardiac: Chest wall symmetric. RRR Lungs: Normal respiratory effort without accessory muscle use. CTA bilaterally Abdomen: Soft, nondistended, nontender to palpation, no rebound tenderness or guarding. Belching induced with palpation of abdomen. Hyperactive bowel sounds throughout. Ext: Upper and lower extremities atraumatic, without tenderness, deformity, swelling or erythema Neuro: AOx3. Normal speech Course Course Course Narrative: CBC without leukocytosis or left shift. No anemia. H&H stable. Chemistry without acute electrolyte abnormality requiring intervention. BUN slightly elevated at 19, normal creatinine. Renal function appears to be at her baseline. Troponin WNL at 3.4. Will repeat for delta. EKG showing normal sinus rhythm, no acute ischemic changes or ST elevations. Urine without infection. KUB showing extensive fecal material seen throughout colon and rectum suggestive of obstipation. There are dilated small bowel loops in the central abdomen suggesting possible secondary small-bowel obstruction or ileus. Status post cholecystectomy. > trialed GI cocktail. Patient reports discomfort to epigastric region is still present. Still belching every few seconds. > patient tells me she has an allergy to IV contrast. She states that she was hospitalized after receiving IV contrast in the past with reaction of nausea, vomiting, syncope. CT abdomen/pelvis with p.o. contrast ordered to rule out small bowel obstruction. 1800 -- patient stable at the end of my shift. tolerated PO contrast, awaiting CT scan. sitting comfortably. signout given to [facility] LEAD INSTRUCTOR/FLIGHT ATTENDANT pending imaging and disposition. Reevaluation(s) Reevaluation #1: Love Cohen NP 20:22 08/26/2024 - CT of the abdomen and pelvis without evidence of obstruction or diverticulitis, there is however notable prominent stool burden throughout the colon. In the emergency department she received an enema with minimal results, requesting discharge home, has sent prescriptions were MiraLax in addition to docusate, strict return precautions, outpatient follow-up with primary care provider. CT of the abdomen and pelvis without intravenous contrast. No comparison. Findings: There is mild motion artifact. The liver is unremarkable. Cholecystectomy. No hydronephrosis. Spleen size is upper limits of normal. The pancreas is unremarkable. No abdominal aortic aneurysm. There is prominent stool throughout the colon. No definite diverticulitis is identified. Normal appendix. No bowel obstruction. The bladder is unremarkable. Hysterectomy. No free fluid in the pelvis. There is mild scarring in the lower lungs. Impression: Prominent stool throughout the colon. No bowel obstruction or definite diverticulitis. Medications Administered Discontinued Medications Generic Name Dose Route Start Last Admin Trade Name Freq PRN Reason Stop Dose Admin Al Hydroxide/Mg Hydroxide 30 ml 08/26/24 14:54 08/26/24 16:02 Magnesium Hydrox/Alum Hydrox 30 Ml Oral.Susp PO 08/26/24 14:55 30 ml ONCE ONE Administration Belladonna Alkaloids/Phenobarbital 10 ml 08/26/24 14:54 08/26/24 16:02 Phenobarb/Hyoscy/Atropine/Scop 10 Ml Elixir PO 08/26/24 14:55 10 ml ONCE ONE Administration Diatrizoate Meglum/Diatrizoate Sod 30 ml 08/26/24 17:55 08/26/24 17:55 Diatrizoate Meglumine, Sodium 30 Ml Solution PO 08/26/24 17:56 30 ml ONCE ONE Administration Mineral Oil 133 ml 08/26/24 20:17 08/26/24 20:59 Mineral Oil Enema 133 Ml Enema MD 08/26/24 20:18 133 ml ONCE ONE Administration Ondansetron HCl 4 mg 08/26/24 14:54 08/26/24 16:03 Ondansetron Odt 4 Mg Tab.Rapdis TRANSLINGU 08/26/24 14:55 4 mg ONCE ONE Administration Medical Decision Making Medical Decision Making [facility] Narrative: 89 year old female with pmhx significant for GERD, HTN, anxiety presents to the ED today via EMS from PT for evaluation of chest/ epigastric discomfort and excessive belching since this morning. Differential diagnosis includes GERD, gastritis, constipation, obstipation, SBO, ileus, ACS, arrhythmia Plan for screening labs, trop, EKG, GI cocktail, re-evaluation. Differential Diagnosis Differential Diagnoses: The differential diagnosis associated with the presentation includes as above. Admission/Observation Consideration of admission/observation: Escalation of care including admission/observation considered Lab Data [facility] Lab Attestation statement: I reviewed the patient's lab results. as above. 08/26/24 13:19 08/26/24 13:19 Labs: Lab Results 08/26/24 08/26/24 08/26/24 Range/Units 13:19 14:21 18:16 WBC 6.9 (4.8-10.8) X10*3/uL RBC 4.07 L (4.20-5.50) X10*6/uL Hgb 13.2 (12.0-16.0) g/dl Hct 38.3 (37.0-47.0) % MCV 94.1 (80.0-98.0) fL MCH 32.4 (27.0-33.0) pg MCHC 34.5 (31.0-35.0) g/dl RDW 12.3 (11.0-16.0) % Plt Count 172 (160-400) X10*3/uL MPV 11.5 (9.4-12.3) fL Immature Gran % (Auto) 1.0 H (0.0-0.4) % Neut % (Auto) 46.6 (45-73) % Lymph % (Auto) 29.2 (20-40) % Wallace % (Auto) 13.4 H (2-11) % Eos % (Auto) 9.2 H (0-4) % Baso % (Auto) 0.6 (0-2) % Lymph # (Auto) 2.0 (1.2-4.9) X10*3/uL Wallace # (Auto) 0.9 (0.1-1.2) X10*3/uL Eos # (Auto) 0.6 H (0.0-0.4) X10*3/uL Baso # (Auto) 0.0 (0.0-0.2) X10*3/uL Abs Immat Gran (auto) 0.07 H (0.00-0.03) X10*3/uL Absolute Neuts (auto) 3.2 (2.0-8.3) x10*3/uL Absolute Nucleated RBC 0.000 (0.0-0.012) X10*3/uL Nucleated RBC % (auto) 0.0 (0.0-0.2) /100WBC PT 11.3 (10.9-12.4) SEC INR 1.0 (0.9-1.1) Sodium 140 (135-145) mmol/L Potassium 3.9 (3.3-5.1) mmol/L Chloride 105 (96-108) mmol/L Carbon Dioxide 27 (22-29) mmol/L Anion Gap 12 (12-20) BUN 19 H (9-16) mg/dL Creatinine 0.72 (0.5-1.4) mg/dL Estim Creat Clear Calc 51.3 Estimated GFR > 60 Random Glucose 98 (60-115) mg/dL Calcium 9.6 (8.4-10.2) mg/dL Total Bilirubin 0.5 (0.0-1.0) mg/dL Direct Bilirubin 0.2 (0.0-0.5) mg/dL AST 35 H (5-31) U/L ALT 16 (0-31) U/L Alkaline Phosphatase 83 (39-117) U/L Troponin I High Sens 3.4 < 2.7 (<3.5-17.0) ng/L Total Protein 7.1 (6.5-8.0) g/dL Albumin 4.6 (3.5-5.0) g/dL Urine Color Dark Yellow Urine Appearance Clear Urine pH 7.5 (5.0-9.0) Ur Specific [place] 1.015 (1.005-1.025) Urine Protein Negative (Neg-Trace) mg/dL Urine Glucose (UA) Negative (Negative) mg/dL Urine Ketones Negative (Negative) mg/dL Urine Blood Small (1+) H (Negative) Urine Nitrite Negative (Negative) Ur Leukocyte Esterase Negative (Negative) Urine RBC 0-2 (0-2) /HPF Urine WBC 0-5 (0-5) /HPF Ur Squamous Epith Cells 0-2 (0-2) /HPF Other Crystals Present Urine Bacteria None Seen (None Seen) Hyaline Casts 0-2 (0-2) /LPF Independent Interpretation I performed an independent interpretation of an: CT Scan Interpretation: CT a/p KUB showing fecal material throughout colon Radiology Impression Discussion of test interpretation with radiology: I have reviewed the radiologist's reading. Radiologist Impression: Procedure(s): XR KUB Accession Number(s): [id number] cc: Nora Gonzales MD; Trina Nielsen~ EXAMINATION: XR ABDOMEN KUB CLINICAL INDICATION: ?constipation, belching COMPARISON: None available. TECHNIQUE: AP view of the abdomen. FINDINGS: Extensive fecal material is seen throughout the colon and rectum. Findings are suggestive of obstipation. There are dilated small bowel loops in the central abdomen suggesting a possible secondary small bowel obstruction or ileus. There are cholecystectomy clips present. No organomegaly. Lung bases are clear. No focal osseous abnormality. XR/XR KUB IMPRESSION: 1. Obstipation. 2. Possible resultant small bowel obstruction or ileus. Electronically signed by: Art Rivera MD 08/26/2024 03:48 PM EDT Independent Historian Clinical information obtained from an independent historian. History obtained from or confirmed by: EMS and Other (daughter) External Record Review External record reviewed: Inpatient record Prescription Management I considered prescription management with: Pain Medication Social Determinants Patient?s care significantly limited by Social Determinants of Health including: Other Social Determinant of Health Critical Care Time Critical Care Time Critical Care Time: No Discharge Plan Discharge Clinical Impression: Constipation Patient Disposition: Home, Self-Care Instructions: Constipation (ED), High Fiber Diet (ED), Fleet Enema (ED) Additional Instructions: Workup today shows that you are significantly constipated. You were given an enema in the emergency department. It is important that you are drinking adequate hard water throughout the day and increase your dietary fiber Prescription has been sent to the pharmacy for 2 medications; - MiraLax take twice daily as prescribed mixed in to 12 oz of water. - Colace/docusate to take twice daily as prescribed. Discontinue usage if you begin to experience diarrhea. Follow-up with primary care doctor. Return to emergency department any new or worsening symptoms or concerns. Prescriptions: New polyethylene glycol 3350 [Miralax] 17 gram/dose powder 17 g PO BID Qty: 119 0RF docusate sodium 100 mg capsule 100 mg PO BID Qty: 30 0RF No Action calcium carbonate-vitamin D3 500 mg-3.125 mcg (125 unit) Tablet 1 tab PO BID Probiotic 3 billion cell Capsule 3,000 mmu cells PO DAILY Rx Instructions: administer with a meal turmeric 400 mg Capsule 400 mg PO DAILY cimetidine 200 mg Tablet 200 mg PO DAILY Rx Instructions: administer with meals Vitamin B-12 acetaminophen 325 mg Tablet 650 mg PO Q6H PRN (Reason: Pain, Mild (Pain Scale 1-3)) 30 Days Qty: 240 0RF sertraline 25 mg tablet 25 mg PO BEDTIME meclizine 25 mg tablet 25 mg PO DAILY PRN (Reason: Vertigo) amlodipine 2.5 mg tablet 2.5 mg PO DAILY 90 Days Qty: 90 4RF fluticasone furoate 50 mcg/actuation blister with device inhalation naproxen 500 mg tablet 500 mg PO BID Interventions: ED Discharge Assessment Last Done: 08/26/24 22:01 Discharge Date/Time: 08/26/24 22:03 Print Language: Luxembourgish
[2024-08-26 13:29] LABS: MANUAL DIFF FLAG NO
[2024-08-26 13:30] LABS: Basophils Percent Auto 0.6 % (0-2); Eosinophils Absolute Auto 0.6 X10*3/uL (0.0-0.4); Eosinophils Percent Auto 9.2 % (0-4); Hematocrit 38.3 % (37.0-47.0); Hemoglobin 13.2 g/dl (12.0-16.0); Imm Gran Abs Auto 0.07 X10*3/uL (0.00-0.03); Lymphocytes Percent Auto 29.2 % (20-40); Mean Corpuscular HGB Conc 34.5 g/dl (31.0-35.0); Mean Corpuscular Hemoglobin 32.4 pg (27.0-33.0); Mean Corpuscular Volume 94.1 fL (80.0-98.0); Mean Platelet Volume 11.5 fL (9.4-12.3); Monocytes Absolute Auto 0.9 X10*3/uL (0.1-1.2); Monocytes Percent Auto 13.4 % (2-11); Neutrophils Absolute Auto 3.2 x10*3/uL (2.0-8.3); Neutrophils Percent Auto 46.6 % (45-73); Platelet Count 172 X10*3/uL (160-400); Red Blood Count 4.07 X10*6/uL (4.20-5.50); Red Cell Distribution Width 12.3 % (11.0-16.0); White Blood Count 6.9 X10*3/uL (4.8-10.8)
[2024-08-26 13:38] LABS: Prothrombin Time 11.3 SEC (10.9-12.4)
[2024-08-26 13:43] LABS: Anion Gap 12 (12-20); Blood Urea Nitrogen 19 mg/dL (9-16); Calcium 9.6 mg/dL (8.4-10.2); Carbon Dioxide 27 mmol/L (22-29); Chloride 105 mmol/L (96-108); Creatinine Clr Calc Pharmacy 51.3; Estimated Glomerular Filt Rate > 60; Glucose Random 98 mg/dL (60-115); Potassium 3.9 mmol/L (3.3-5.1); Sodium 140 mmol/L (135-145)
[2024-08-26 13:52] LABS: Troponin-I High Sensitivity 3.4 ng/L (<3.5-17.0)
[2024-08-26 14:31] LABS: Appearance Urine Clear; Color Urine Dark Yellow; Glucose Urine UA Negative (Negative); Leukocyte Esterase Urine Negative (Negative); Nitrite Urine Negative (Negative); PH 7.5 (5.0-9.0); Specific Gravity - Urine 1.015 (1.005-1.025); UMIC TRIGGER UACC YES; Urine Blood Small (1+) (Negative); Urine Ketones Negative (Negative); Urine Protein Negative (Neg-Trace)
[2024-08-26 14:35] VITALS: BP 154/78; PULSE 94; RESP 16; TEMP 36.4; O2SAT 96
[2024-08-26 14:39] LABS: Bacteria Urine None Seen (None Seen); Hyaline Casts Urine 0-2 /LPF (0-2); Other Crystals Urine Present; RBC Urine 0-2 /HPF (0-2); Squamous Epithelial Cell Urine 0-2 /HPF (0-2); WBC Urine 0-5 /HPF (0-5)
--- OUTSIDE RECORDS SUMMARY | 2024-08-26 15:29 | XMS_ITS | Encounter Summary ---
Author Organization [facility] Address [facility] [place] [address] Care Team Providers Care District Claims Manager Name Role Phone Anshul Waggoner MD Primary [...] Details Date Type Department Care Team Description 12/12/2008 Hospital Medical Records [address] [place] [id number] Smion Taylor MD [address] [place] [id number] Social History Tobacco Use Types Packs/Day Years [...] on filedocumented in this encounter Care Teams District Claims Manager Relationship Specialty Start Date End Date Anshul [...]
[2024-08-26] MEDS: Magnesium Hydrox/Alum Hydrox 30 ML ORAL.SUSP PO (16:02)
[2024-08-26] MEDS: PHENobarb/Hyoscy/Atropine/Scop 10 ML ELIXIR PO (16:02)
[2024-08-26] MEDS: Ondansetron ODT 4 MG TAB.RAPDIS TRANSLINGU (16:03)
--- NOTE | 2024-08-26 16:08 | PC.NURSE ---
Patient refused IV contrast CT scan due to history of adverse reaction/allergy. IV contrast allergy updated to list, didn't mention this during triage earlier today. VLAD Nielsen aware. Changed to oral contrast imaging to rule out possible small bowel obstruction, per KUB earlier today. Pt denies pain at this time, reports intermittent pressure. Frequency of belching has decreased since medication administration. Baseline, per patient & daughter at bedside. Patient has voided urine 3 times since arrival without difficulty. Care ongoing by this RN.
[2024-08-26 16:54] VITALS: BP 154/72; PULSE 95; RESP 19; TEMP 36.5; O2SAT 97
[2024-08-26] MEDS: Diatrizoate Meglumine, Sodium 30 ML SOLUTION PO (17:55)
--- NOTE | 2024-08-26 17:58 | PC.NURSE ---
Patient is away for imaging. Upon return, will draw labs.
--- NOTE | 2024-08-26 18:16 | PC.NURSE ---
Labs drawn and sent for analysis. Returned from CT scan, awaiting results.
[2024-08-26 18:41] LABS: Alanine Aminotransferase 16 U/L (0-31); Albumin Level 4.6 g/dL (3.5-5.0); Alkaline Phosphatase 83 U/L (39-117); Aspartate Amino Transferase 35 U/L (5-31); Bilirubin Direct 0.2 mg/dL (0.0-0.5); Bilirubin Total 0.5 mg/dL (0.0-1.0); Total Protein 7.1 g/dL (6.5-8.0)
[2024-08-26 19:19] LABS: Troponin-I High Sensitivity < 2.7 ng/L (<3.5-17.0)
[2024-08-26] MEDS: Mineral OiL enema 133 ML ENEMA PR (20:59)
[2024-08-26 21:53] VITALS: BP 154/73; PULSE 86; RESP 19; TEMP 36.6; O2SAT 97
[2024-08-26 22:01] VITALS: BP 154/73; PULSE 86; RESP 19; TEMP 36.6; O2SAT 97
== END 2024-08-26 22:03 | disposition home or self-care (01) ==
PROVIDERS: Physician Assistant Medical; Emergency Provider Emergency Medicine Emergency Medical Services; PCP Internal Medicine
DX: K59.00 Constipation, unspecified (principal); R07.89 Other chest pain; R10.2 Pelvic and perineal pain; R06.02 Shortness of breath; I10 Essential (primary) hypertension; Z79.899 Other long term (current) drug therapy
CPT/HCPCS: 36415; 74018; 74176; 80048; 80076; 81001; 84484; 85025; 85610; 93005; 99284; 99285

== ENCOUNTER → 2024-08-26 13:08 | Outpatient (BNV) | payer OTHER, SELFPAY | PROVIDERS: Emergency Provider Emergency Medicine Emergency Medical Services; PCP Internal Medicine; Visit Provider Internal Medicine | DX: R07.9 Chest pain, unspecified (principal) | CPT/HCPCS: 93010 ==

== ENCOUNTER → 2024-08-26 14:54 | Outpatient (BNV) | payer OTHER, SELFPAY | PROVIDERS: Emergency Provider Emergency Medicine Emergency Medical Services; PCP Internal Medicine; Visit Provider Radiology Diagnostic Radiology | DX: K56.41 Fecal impaction (principal); K59.00 Constipation, unspecified | CPT/HCPCS: 74018; 74176 ==

== ENCOUNTER 2024-11-09 19:07 | Emergency (ER) | payer OTHER, SELFPAY ==
--- NOTE | ~2024-11-09 | CT_ITS ---
CLINICAL HISTORY: Left facial pain CT head without contrast COMPARISON: None FINDINGS: No acute intracranial hemorrhage, extra-axial fluid collection, mass effect, or midline shift. Ventricular system and basilar cisterns are patent. Orozco-white matter differentiation is maintained. No gross orbital abnormality. No suspicious or acute bone lesion. Mastoid air cells and paranasal sinuses are predominantly clear. IMPRESSION: 1. No acute intracranial abnormality. This document has been electronically signed by: Isaias Sow MD on 11/09/2024 21:55:00
[2024-11-09 19:22] VITALS: BP 150/100; BP 175/84; PULSE 105; PULSE 107; RESP 16; TEMP 36.5; O2SAT 94; O2SAT 98; BMI 25.3
--- NOTE | 2024-11-09 19:29 | ECG_ITS ---
Test Reason : L/F/PAIN Blood Pressure : */* mmHG Vent. Rate : 96 BPM Atrial Rate : 96 BPM P-R Int : 198 ms QRS Dur : 80 ms QT Int : 372 ms P-R-T Axes : 57 82 45 degrees QTcB Int : 469 ms Normal sinus rhythm Normal ECG When compared with ECG of 26-Aug-2024 13:21, No significant change was found Referred By: Shilpa Stewart Electronically Signed By: Jerry Oliver
--- NOTE | 2024-11-09 19:30 | ED_ITS ---
HPI - General Adult General Chief complaint: General Medical Stated complaint: left side facial pain Time Seen by Provider: 11/09/24 19:21 Source: patient and EMS Mode of arrival: EMS Limitations: no limitations History of Present Illness ED Provider: DR. Stewart HPI narrative: 89-year-old female with PMHx significant for GERD, HTN, anxiety, trigeminal neuralgia s/p nerve block presented for evaluation of left-sided facial burning sensation started since 07:00 today, patient otherwise declined eye pain, no rash to the face, no weakness or numbness anywhere else, not taking anticoagulation. No CP, no SOB, no abdominal pain, no back pain. Patient lives home daughter live close by but patient mostly active at home. No blurry vision, no eye injury, no fall or head injury. Related Data Home Medications ?Medication ?Instructions ?Recorded ?Confirmed meclizine 25 mg tablet 25 mg PO DAILY PRN Vertigo 1 03/29/22 05/26/23 sertraline 25 mg tablet 25 mg PO BEDTIME 05/25/23 calcium 500 mg (as 1 tab PO BID 05/26/23 carbonate)-vitamin D3 3.125 mcg (125 unit) tablet cimetidine 200 mg tablet 200 mg PO DAILY 05/26/2304/19 lactobacillus combination no.4 3 3,000 mmu cells PO DA JAIR 05/26/23 05/26/23 billion cell capsule (Probiotic) turmeric 400 mg capsule 400 mg PO DAILY 05/26/2304/19 Vitamin B-12 06/06/23 fluticasone furoate 50 inhalation 06/19/24 mcg/actuation blister powder for inhalation naproxen 500 mg tablet 500 mg PO BID 06/19/24 Previous Rx's ?Medication ?Instructions ?Recorded acetaminophen 325 mg tablet 650 mg (2 x 325 mg) PO Q6H PRN 06/07/23 Pain, Mild (Pain Scale 1-3) 30 days #240 tabs amlodipine 2.5 mg tablet 2.5 mg PO DAILY 90 days #90 tabs 10/13/23 docusate sodium 100 mg capsule 100 mg PO BID #30 caps 08/26/24 polyethylene glycol 3350 17 17 g PO BID #119 grams 05/21 gram/dose oral powder (Miralax) gabapentin 100 mg tablet 100 mg PO TID PRN Facial fadia n #20 11/09/24 tabs Allergies Allergy/AdvReac Type Severity Reaction Status Date / Time Iodinated Contrast Media (IV Allergy Severe Unresponsiv Verified 11/09/24 19:25 Contrast Dye) e acetaminophen (From Percocet) Allergy Unknown Vomiting Verified 11/09/24 19:25 aspirin (Aspirin) Allergy Unknown NOSEBLEEDS Verified 11/09/24 19:25 codeine (Codeine) Allergy Unknown N/V Verified 11/09/24 19:25 morphine (MORPHINE) Allergy Unknown NAUSEA/VOMI Verified 11/09/24 19:25 TING oxycodone (From Percocet) Allergy Unknown Vomiting Verified 11/09/24 19:25 Penicillins Allergy Unknown FACIAL Verified 11/09/24 19:25 SWELLING Review of Systems 2 Review of Systems: All other systems are reviewed and are negative Constitutional: Reports as per HPI and Reports no additional constitutional complaints Eyes: Reports as per HPI and Reports no additional eye complaints Reports system reviewed and no additional complaints, except as documented Cardiovascular: Reports as per HPI and Reports no additional cardiovascular complaints Respiratory: Reports as per HPI and Reports no additional respiratory complaints Gastrointestinal: Reports as per HPI and Reports no additional gastrointestinal complaints Genitourinary: Reports no additional female genitourinary complaints Musculoskeletal: Reports no additional musculoskeletal complaints Skin/Breast: Reports system reviewed and no additional complaints, except as docu Psychiatric: Reports no additional psychiatric complaints Endocrine: Reports no additional endocrine complaints Hematologic/Lymphatic: Reports no additional hematologic/lymphatic complaints Allergic/Immunologic: Reports no additional allergic/immunologic complaints Reports system reviewed and no additional complaints, except as documented and Reports Abnormal speech present [facility] Past Medical History Medical History HTN (hypertension) Primary osteoarthritis of knees, bilateral Back pain Anxiety Cataract Vertigo Leg edema, left Fatty liver Arthritis Trigeminal neuralgia GERD (gastroesophageal reflux disease) Breast cancer PVD (peripheral vascular disease) Surgical History History of esophagogastroduodenoscopy (EGD) H/O colonoscopy History of bilateral cataract extraction History of left salpingo-oophorectomy Hx of hysterectomy History of nasal polypectomy Hx of cholecystectomy History of lumpectomy of left breast History of surgical removal of meniscus of knee Family History Family History Mother Cancer Brother Diabetes Social History Social History Household Members: Children Household Members Other:: Ex DIL Housing: Apartment Are you a primary urgent care physician assistant to a significant other at home: No Do you presently have visiting nurse or other home services: No Alcohol intake: never Patient Tobacco Use Status: Never used Tobacco Smoked in Last 30 Days: No Use of substances other than those prescribed or required for medical reasons: No Advance Directives: No Advance Directives Information Provided: No Do you have a plan to hurt others: No Plan Physical Exam ED Vital Signs: Vital Signs - 24 hr 11/09/24 19:22 11/09/24 21:58 Temperature 97.7 F 97.8 F Pulse Rate 105 H 88 Respiratory Rate 16 18 Blood Pressure 175/84 H 164/70 H Pulse Oximetry 94 96 Oxygen Delivery Method Room Air Room Air BMI result Body Mass Index 25.3 Vital signs have been reviewed and appear to be correct. Blood pressure elevated. Heart rate normal. Respiratory rate normal. Temperature normal. Oxygen saturation normal. Appearance: Alert. Oriented X3. No acute distress. Head: Normal external exam. Normocephalic. Atraumatic. No Moreira signs noted. No raccoon eyes noted Eyes: VA 20/40 right, 20/40 left. General: appearance normal, both eyes and all related structures Visual Duong: normal visual duong by confrontation Alignment and Position: alignment normal and position normal Periorbital: periorbital findings normal Eyelids: eyelids normal inspection. Conjunctivae: conjunctivae normal Sclerae: sclerae normal Corneas: corneas normal, no fluorescein corneal uptake. Pupils: Equal, round and reactive pupils present and Pupil accommodation reflex normal EOM: EOM abnormal (Limited abduction of right eye) and No Nystagmus present Direct Ophthalmoscopy: normal light reflex, no photophobia, no papilledema and fundi normal bilaterally. IOP right 17, left 18. ENT: TM's Normal. Pharynx normal. Uvula midline. Moist mucous membranes. No trismus noted. No drooling noted. No muffled voice noted. Neck: Normal inspection. Neck supple. FROM. No adenopathy. Thyroid Normal. No meningeal signs. No neck mass noted. CVS: Normal heart rate and rhythm. Heart sound normal. No murmurs noted. Pulses normal throughout. Respiratory: No respiratory distress. Painless inspiration. Breath sounds normal. No wheezes/rales/rhonchi noted. Chest nontender. No accessory muscle usage noted or decreased air movement noted. Abdomen: Soft and nontender. Bowel sounds normal in all 4 quadrants. No distention noted. No organomegaly noted. No visible injury noted. Back: No CVA tenderness. Full range of motion noted. Skin: Skin warm and dry. Normal skin color. Normal skin turgor. No rashes/lesions/lacerations noted. Extremities: No lower extremity edema. Extremities exhibit normal range of motion. Extremities nontender. Neuro: Mental status: Normal attention, orientation, memory, and affect. Cranial nerves: Pupils are equal, round and reactive to light, EOMI, visual duong are fall, face is symmetric, facial sensations are normal. Motor examination normal muscle tone, strength to 4 extremities. DTR are +2, planter's are flexor. Sensory exam; normal coordination, no ataxia, gait stable. Cerebellar exam: [id number]-bc-vsmi and qeqs-dc-gbvu is normal. Extrapyramidal system: No tremors, no rigidity with normal facial expressions. Pronator drift not present NIH Stroke Scale Internal: Initial- Upon Arrival Time: 19:36 Level of Consciousness: Alert Level of Consciousness Questions: Answers both questions correctly Level of Consciousness Commands: Performs both tasks correctly Best Gaze: Normal Visual: No visual loss Facial Palsy: Normal Motor Arm (Right): No drift Motor Arm (Left): No drift Motor Leg (Right): No drift Motor Leg (Left): No drift Limb Ataxia: Absent Sensory: Normal Best Language: No aphasia Dysarthia: Normal Extinction and Inattention: No abnormality Score: 0 Course Reevaluation(s) Reevaluation #1: 89-year-old female with history of trigeminal neuralgia that was treated with surgical nerve block many years ago came in from home today for left facial burning pain that is improved with gabapentin in the ED, patient has no pain, repeat neuro exam shows no facial paralysis, no neurological deficit, patient has no headache, normal eye exam. No vesicular rash to suggest shingles. Await for sed rate/CRP/ CT head if negative expect patient to go home on gabapentin and outpatient neurology follow-up. Signed out to Dr. Amador. Time: 20:42 Medications Administered Discontinued Medications Generic Name Dose Route Start Last Admin Trade Name Leilani PRN Reason Stop Dose Admin Fluorescein Sodium 1 strip 11/09/24 19:27 11/09/24 19:41 Fluorescein Sodium Strip EYE-LEFT 11/09/24 19:28 1 strip ONCE ONE Administration Gabapentin 400 mg 11/09/24 19:27 11/09/24 19:40 Gabapentin 400 Mg Capsule PO 11/09/24 19:28 400 mg ONCE ONE Administration Tetracaine HCl 1 drop 11/09/24 19:27 11/09/24 19:40 Tetracaine Hcl/Pf 0.5% Oph Lilliam 4 Ml Drops EYE-LEFT 11/09/24 19:28 1 drop ONCE ONE Administration Medical Decision Making Differential Diagnosis Differential Diagnoses: The differential diagnosis associated with the presentation includes (Patel's palsy, CVA, glaucoma, trigeminal neuralgia, temporal arteritis, shingles.) Admission/Observation Consideration of admission/observation: Escalation of care including admission/observation considered Lab Data MDM Lab Attestation statement: I reviewed the patient's lab results. 11/09/24 20:06 11/09/24 20:06 Labs: Lab Results 11/09/24 11/09/24 Range/Units 20:06 21:38 WBC 6.3 (4.8-10.8) X10*3/uL RBC 4.32 (4.20-5.50) X10*6/uL Hgb 13.8 (12.0-16.0) g/dl Hct 39.1 (37.0-47.0) % MCV 90.5 (80.0-98.0) fL MCH 31.9 (27.0-33.0) pg MCHC 35.3 H (31.0-35.0) g/dl RDW 11.9 (11.0-16.0) % Plt Count 175 (160-400) X10*3/uL MPV 11.9 (9.4-12.3) fL Immature Gran % (Auto) 0.3 (0.0-0.4) % Neut % (Auto) 73.3 H (45-73) % Lymph % (Auto) 17.3 L (20-40) % Meigs % (Auto) 8.1 (2-11) % Eos % (Auto) 0.5 (0-4) % Baso % (Auto) 0.5 (0-2) % Lymph # (Auto) 1.1 L (1.2-4.9) X10*3/uL Meigs # (Auto) 0.5 (0.1-1.2) X10*3/uL Eos # (Auto) 0.0 (0.0-0.4) X10*3/uL Baso # (Auto) 0.0 (0.0-0.2) X10*3/uL Abs Immat Gran (auto) 0.02 (0.00-0.03) X10*3/uL Absolute Neuts (auto) 4.6 (2.0-8.3) x10*3/uL Absolute Nucleated RBC 0.000 (0.0-0.012) X10*3/uL Nucleated RBC % (auto) 0.0 (0.0-0.2) /100WBC ESR 10 (0-20) MM/HR Sodium 137 (135-145) mmol/L Potassium 3.5 (3.3-5.1) mmol/L Chloride 102 (96-108) mmol/L Carbon Dioxide 20 L (22-29) mmol/L Anion Gap 19 (12-20) BUN 15 (9-16) mg/dL Creatinine 0.64 (0.5-1.4) mg/dL Estim Creat Clear Calc 58.2 Estimated GFR > 60 Random Glucose 169 H (60-115) mg/dL Calcium 9.3 (8.4-10.2) mg/dL Total Bilirubin 0.5 (0.0-1.0) mg/dL Direct Bilirubin 0.2 (0.0-0.5) mg/dL AST 34 H (5-31) U/L ALT 16 (0-31) U/L Alkaline Phosphatase 114 (39-117) U/L Troponin I High Sens 13.8 D (<3.5-17.0) ng/L C-Reactive Protein < 0.10 (< or = 0.50) mg/dL Total Protein 7.4 (6.5-8.0) g/dL Albumin 4.7 (3.5-5.0) g/dL Lipase 22 (8-78) U/L Urine Color Yellow Urine Appearance Cloudy Urine pH 7.5 (5.0-9.0) Ur Specific [place] 1.015 (1.005-1.025) Urine Protein 30 (1+) H (Neg-Trace) mg/dL Urine Glucose (UA) Negative (Negative) mg/dL Urine Ketones 15 (Negative) mg/dL Urine Blood Moderate (2+) H (Negative) Urine Nitrite Negative (Negative) Ur Leukocyte Esterase Small (1+) H (Negative) Independent Interpretation I performed an independent interpretation of an: CT Scan Discharge Plan Discharge Clinical Impression: Left-sided trigeminal neuralgia Patient Disposition: Home, Self-Care Instructions: Trigeminal Neuralgia (ED) Additional Instructions: please follow up with your doctor return for any worsening symptoms or concerns resty and stay hydrated FINDINGS: No acute intracranial hemorrhage, extra-axial fluid collection, mass effect, or midline shift. Ventricular system and basilar cisterns are patent. Orozco-white matter differentiation is maintained. No gross orbital abnormality. No suspicious or acute bone lesion. Mastoid air cells and paranasal sinuses are predominantly clear. IMPRESSION: 1. No acute intracranial abnormality. Prescriptions: New gabapentin 100 mg tablet 100 mg PO TID PRN (Reason: Facial pain) Qty: 20 0RF No Action calcium carbonate-vitamin D3 500 mg-3.125 mcg (125 unit) Tablet 1 tab PO BID Probiotic 3 billion cell Capsule 3,000 mmu cells PO DAILY Rx Instructions: administer with a meal turmeric 400 mg Capsule 400 mg PO DAILY cimetidine 200 mg Tablet 200 mg PO DAILY Rx Instructions: administer with meals Vitamin B-12 acetaminophen 325 mg Tablet 650 mg PO Q6H PRN (Reason: Pain, Mild (Pain Scale 1-3)) 30 Days Qty: 240 0RF polyethylene glycol 3350 [Miralax] 17 gram/dose powder 17 g PO BID Qty: 119 0RF docusate sodium 100 mg capsule 100 mg PO BID Qty: 30 0RF sertraline 25 mg tablet 25 mg PO BEDTIME meclizine 25 mg tablet 25 mg PO DAILY PRN (Reason: Vertigo) amlodipine 2.5 mg tablet 2.5 mg PO DAILY 90 Days Qty: 90 4RF fluticasone furoate 50 mcg/actuation blister with device inhalation naproxen 500 mg tablet 500 mg PO BID Referrals: Nora Gonzales MD [Primary Care Provider, Internal Medicine] Vianney Dubois MD [Physician, Neurology] Print Language: Khmer
[2024-11-09] MEDS: Tetracaine HCl/PF 0.5% Oph Sol 4 ML DROPS 1 DROP EYE-LEFT (19:40)
[2024-11-09] MEDS: Fluorescein Sodium STRIP 1 STRIP EYE-LEFT (19:41)
--- OUTSIDE RECORDS SUMMARY | 2024-11-09 20:00 | XMS_ITS | Encounter Summary ---
Author Organization [facility] Address [address] [place] [address] Encounters * CPT with Medical instED at [employer] on 2024-11-09 { reasonForRequest : headache and face pain , patientReports : &q uot;, denies :[ Sudden onset of dental pain, unable to manage own secretions ,&q uot;Nosebleed lasting longer than one hour; unable to stop bleeding , Throat swelling/difficult swallowing ], chiefComplaints : Headache , pmh : Hyper tension , allergies : Aspirin, Penicillins , otherAllergies :null , painAssessment : , visitOutcome : , additionalComments : 89 y.o female complains of Headache\nPatient's daughter calling reporting patient having \ extreme head pain going down the side of her face, I think it might be another sinus infection\ . Daughter states the pain started this morning and Tylenol helped a bit at first, butnow pain is \ severe\ . Daughter denies patient has recently been ill, but states the patient has a history of chronic sinusitis. Daughter states the last time she had a sinus infection it \ affected the side of her face\ , but states she does not usually complain of head pain. Daughter denies patient taking blood thinning medications, denies head trauma, denies any known fever or chills. Patient with no difficulty swallowing, but does complain of sore throat, daughter states this is new today as well. I provided information on the mobile health provider response time and advised the patient and/or caregiver to monitor reported signs and symptoms. I discussed the warning signs of when to seek emergency care -Yordan Jolley RN } Arrived to find female in residence. Patient daughter on scene patient in severe distress. Patient reports sudden head pain on left side. Unilateral. Pain around eye to head. Unable to communicate due to pain. Attempted to take Tylenol without improvement. Patient VS as noted. Hypertensive. On antihypertensives. No missed doses. FAST ED inconclusive. [facility] contacted agreed with medic that patient needs to go to hospital. 911 called. Delay in care due to [place] [facility] going down. Care transferred to [place] ambulance. IV_(FLUIDS_AND/OR_MEDICATION), MEDICATION_IM, EKG, POC_FLU_STREP, COVID_TEST Written by Medical instED on 2024-11-09
--- OUTSIDE RECORDS SUMMARY | 2024-11-09 20:00 | XMS_ITS | Clinical Summary ---
Author Organization [facility] Address [address] [place] [address] Phone Care Team Providers Care Global Security Architect Name Role Phone Margie Wallis MD Primary Care Provider [phone] Allergies Active Allergy Reactions Criticality Noted Date [...] lower limb 09/22/201503/2020 Overview (09/24/2020): Evaluated at [facility] vascular services on 03/18/15. Compression stockings [...] Date Last Done Comments Influenza Vaccine (#1) 2024 2, 01/20/2021, 12/21/2018, Additional history exists Pneumococcal Vaccine: 50+ Years Completed 06/08/2015, 2008 Pneumococcal Vaccine: Peds (0 to 5 Years) and At-Risk Patients (6 to 49 Years) Discontinued 06/08/2015, 2008 Hepatitis B Vaccine Aged Out No longe r eligible based on patient's age to complete this topic Insurance [facility] Medicaid [place] [facility] Medicaid [place] Care Teams Global Security Architect Relationship Specialty Start Date End Date Margie Wallis MD PCP - General Internal Medicine 09/30/20
--- OUTSIDE RECORDS SUMMARY | 2024-11-09 20:00 | XMS_ITS | Patient Health Record ---
Author Organization [facility] Address [address] [place] [address] Care Team Providers Care Environmental Services Assistant Name Role Phone Edilson JOHN, Anshul Primary Care Provider Dada Hampton Unavailable [phone] Reason For Referral No Information Plan Of Treatment No Information Insurance Providers Payer Name Payer Address Payer Phone Subscriber Number Group Number Insured Name Patient Relationship to Insured Coverage Start Date Coverage End Date [facility] [address] [place], [place] [id number] [phone] ORA HUFF Self - patient is the insured
--- OUTSIDE RECORDS SUMMARY | 2024-11-09 20:00 | XMS_ITS ---
Author Name [facility] Organization Unknown Care Team Organization Name Specialty Phone Email Start Date End Da [facility] Margie Wallis Primary Care 02/01/2022 4
[2024-11-09 20:11] LABS: MANUAL DIFF FLAG NO
[2024-11-09 20:12] LABS: Hematocrit 39.1 % (37.0-47.0); Hemoglobin 13.8 g/dl (12.0-16.0); Imm Gran Abs Auto 0.02 X10*3/uL (0.00-0.03); Imm Gran Pct Auto 0.3 % (0.0-0.4); Lymphocytes Absolute Auto 1.1 X10*3/uL (1.2-4.9); Mean Corpuscular HGB Conc 35.3 g/dl (31.0-35.0); Mean Corpuscular Hemoglobin 31.9 pg (27.0-33.0); Mean Corpuscular Volume 90.5 fL (80.0-98.0); NRBC Abs Auto 0.000 X10*3/uL (0.0-0.012); NRBC Pct Auto 0.0 /100WBC (0.0-0.2); Platelet Count 175 X10*3/uL (160-400); Red Blood Count 4.32 X10*6/uL (4.20-5.50); White Blood Count 6.3 X10*3/uL (4.8-10.8)
[2024-11-09 20:26] LABS: Alanine Aminotransferase 16 U/L (0-31); Albumin Level 4.7 g/dL (3.5-5.0); Alkaline Phosphatase 114 U/L (39-117); Anion Gap 19 (12-20); Aspartate Amino Transferase 34 U/L (5-31); Blood Urea Nitrogen 15 mg/dL (9-16); Calcium 9.3 mg/dL (8.4-10.2); Carbon Dioxide 20 mmol/L (22-29); Chloride 102 mmol/L (96-108); Creatinine Clr Calc Pharmacy 58.2; Estimated Glomerular Filt Rate > 60; Lipase 22 U/L (8-78); Potassium 3.5 mmol/L (3.3-5.1); Sodium 137 mmol/L (135-145); Total Protein 7.4 g/dL (6.5-8.0)
[2024-11-09 20:33] LABS: Troponin-I High Sensitivity 13.8 ng/L (<3.5-17.0)
[2024-11-09 21:54] LABS: Appearance Urine Cloudy; Glucose Urine UA Negative (Negative); PH 7.5 (5.0-9.0); Specific Gravity - Urine 1.015 (1.005-1.025); UMIC TRIGGER UACC YES
[2024-11-09 21:57] LABS: UACC Culture Trigger YES
[2024-11-09 21:58] VITALS: BP 164/70; PULSE 88; RESP 18; TEMP 36.6; O2SAT 96
[2024-11-09 23:18] VITALS: BP 164/70; PULSE 88; RESP 18; TEMP 36.6; O2SAT 96
== END 2024-11-09 23:19 | disposition home or self-care (01) ==
PROVIDERS: Emergency Provider Emergency Medicine; PCP Internal Medicine
DX: G50.0 Trigeminal neuralgia (principal); R51.9 Headache, unspecified; R07.89 Other chest pain; Z79.899 Other long term (current) drug therapy
CPT/HCPCS: 36415; 70450; 80048; 80076; 81001; 83690; 84484; 85025; 85652; 86140; 87086; 93005; 99284

== ENCOUNTER → 2024-11-09 19:27 | Outpatient (BNV) | payer OTHER, SELFPAY | PROVIDERS: Emergency Provider Emergency Medicine; PCP Internal Medicine; Visit Provider Radiology Diagnostic Radiology | DX: G50.1 Atypical facial pain (principal) | CPT/HCPCS: 70450 ==

== ENCOUNTER → 2024-11-09 19:29 | Outpatient (BNV) | payer OTHER, SELFPAY | PROVIDERS: Emergency Provider Emergency Medicine; PCP Internal Medicine; Visit Provider Internal Medicine Cardiovascular Disease | DX: R52 Pain, unspecified (principal) | CPT/HCPCS: 93010 ==

== ENCOUNTER 2024-11-13 15:53 | Emergency (ER) | payer OTHER, SELFPAY ==
--- NOTE | 2024-11-13 16:06 | ED.GENADULT ---
HPI - General Adult General Chief complaint: General Medical Stated complaint: facial pain/ burning Time Seen by Provider: 11/13/24 16:05 Source: patient and EMS Mode of arrival: EMS Limitations: no limitations History of Present Illness ED Provider: Kristi Georges PA-C HPI narrative: Patient is an 89 year old assigned female at with a history of trigeminal neuralgia s/p nerve block many years ago, GERD, HTN, and anxiety presenting to the emergency department today with continued left sided facial pain. Patient states that she was recently treated for a trigeminal neuralgia flare with 100mg of TID gabapentin but it isn't helping and she is continuing to have the pain. Patient denies any other complaints at this time. Patient states that her vision is normal for her and she has not had any rashes. Relieving factors: none Exacerbating factors: none Associated symptoms: denies other symptoms Treatments prior to arrival: other (100mg TID Gabapentin) Related Data Home Medications ?Medication ?Instructions ?Recorded ?Confirmed meclizine 25 mg tablet 25 mg PO DAILY PRN Vertigo 01/27/23 05/26/23 sertraline 25 mg tablet 25 mg PO BEDTIME 05/25/23 05/26/23 calcium 500 mg (as 1 tab PO BID 05/26/23 05/26/23 carbonate)-vitamin D3 3.125 mcg (125 unit) tablet cimetidine 200 mg tablet 200 mg PO DAILY 05/26/23 05/26/23 lactobacillus combination no.4 3 3,000 mmu cells PO DAILY 05/26/23 05/26/23 billion cell capsule (Probiotic) turmeric 400 mg capsule 400 mg PO DAILY 05/26/23 05/26/23 Vitamin B-12 06/06/23 fluticasone furoate 50 inhalation 06/19/24 mcg/actuation blister powder for inhalation naproxen 500 mg tablet 500 mg PO BID 06/19/24 Previous Rx's ?Medication ?Instructions ?Recorded acetaminophen 325 mg tablet 650 mg (2 x 325 mg) PO Q6H PRN 06/07/23 Pain, Mild (Pain Scale 1-3) 30 days #240 tabs amlodipine 2.5 mg tablet 2.5 mg PO DAILY 90 days #90 tabs 10/13/23 docusate sodium 100 mg capsule 100 mg PO BID #30 caps 08/26/24 polyethylene glycol 3350 17 17 g PO BID #119 grams 08/26/24 gram/dose oral powder (Miralax) gabapentin 100 mg tablet 100 mg PO TID PRN Facial pain #20 11/09/24 tabs oxcarbazepine 300 mg tablet 300 mg PO BID #14 tabs 11/13/24 Allergies Allergy/AdvReac Type Severity Reaction Status Date / Time Iodinated Contrast Media (IV Allergy Severe Unresponsiv Verified 11/13/24 16:18 Contrast Dye) e acetaminophen (From Percocet) Allergy Unknown Vomiting Verified 11/13/24 16:18 aspirin (Aspirin) Allergy Unknown NOSEBLEEDS Verified 11/13/24 16:18 codeine (Codeine) Allergy Unknown N/V Verified 11/13/24 16:18 morphine (MORPHINE) Allergy Unknown NAUSEA/VOMI Verified 11/13/24 16:18 TING oxycodone (From Percocet) Allergy Unknown Vomiting Verified 11/13/24 16:18 Penicillins Allergy Unknown FACIAL Verified 11/13/24 16:18 SWELLING Review of Systems Constitutional: Constitutional: Reports as per HPI Eyes: Eyes: Reports as per HPI ENT: Reports as per HPI Cardiovascular: Cardiovascular: Reports as per HPI Respiratory: Respiratory: Reports as per HPI Gastrointestinal: Gastrointestinal: Reports as per HPI Genitourinary: Genitourinary: Reports as per HPI Musculoskeletal: Musculoskeletal: Reports as per HPI Integumentary/Breasts: Skin/Breast: Reports as per HPI Neurologic: Reports as per HPI Psychiatric: Psychiatric: Reports as per HPI Endocrine: Endocrine: Reports as per HPI Hematologic/Lymphatic: Hematologic/Lymphatic: Reports as per HPI Allergic/Immunologic: Allergic/Immunologic: Reports as per HPI [facility] Past Medical History Attestation statement: The following information was validated with the patient. Source: old records reviewed and nursing notes reviewed Medical History HTN (hypertension) Primary osteoarthritis of knees, bilateral Back pain Anxiety Cataract Vertigo Leg edema, left Fatty liver Arthritis Trigeminal neuralgia GERD (gastroesophageal reflux disease) Breast cancer PVD (peripheral vascular disease) Surgical History History of esophagogastroduodenoscopy (EGD) H/O colonoscopy History of bilateral cataract extraction History of left salpingo-oophorectomy Hx of hysterectomy History of nasal polypectomy Hx of cholecystectomy History of lumpectomy of left breast History of surgical removal of meniscus of knee Family History Family History Mother Cancer Brother Diabetes Social History Social History Household Members: Children Household Members Other:: Ex DIL Housing: Apartment Are you a primary healthcare prof to a significant other at home: No Do you presently have visiting nurse or other home services: No Alcohol intake: never Patient Tobacco Use Status: Never used Tobacco Advance Directives: No Advance Directives Information Provided: No Physical Exam ED Vital Signs: Vital Signs - 24 hr 11/13/24 16:07 Temperature 98 F Pulse Rate 92 Respiratory Rate 18 Blood Pressure 148/63 H Pulse Oximetry 100 Oxygen Delivery Method Room Air BMI result Body Mass Index 24.0 Const General: cooperative, no acute distress, alert and awake Nutritional Appearance: well nourished Orientation/consciousness: patient oriented x3 HENMT Head: Yes normal to inspection and Yes atraumatic Ears: hearing grossly normal bilaterally and external ears normal General nose exam: Normal external nose present, no nasal discharge noted and no epistaxis Face and sinus: Yes normal facial exam, No abrasion and No laceration Mouth: Normal oral and palatal mucosa present, no drooling and no muffled voice Eyes General: appearance normal, both eyes and all related structures Periorbital: periorbital findings normal Eyelids: Yes eyelids normal Conjunctivae: conjunctivae normal Pupils: Equal, round and reactive pupils present EOM: EOMs intact bilaterally Neck Neck: Yes normal visual inspection and Yes full ROM Resp Effort & Inspection: normal respiratory effort and able to speak in complete sentences Neuro General: patient oriented x3, moves all extremities and CN's II-XI intact bilaterally Cranial nerves: Yes Equal, round and reactive pupils present Cognition (Neuro): normal cognition Extrem General: Yes normal to inspection, Yes full ROM and Yes capillary refill normal Psych Appearance: grossly normal Mental Status: mental status grossly normal Affect: normal affect Attitude: cooperative Thought process: Normal thought process present Thought content: Normal thought content present Insight: Good insight present (Psych) Medications Administered Discontinued Medications Generic Name Dose Route Start Last Admin Trade Name Freq PRN Reason Stop Dose Admin Oxcarbazepine 300 mg 11/13/24 16:38 11/13/24 17:08 Oxcarbazepine 300 Mg Tablet PO 11/13/24 16:39 300 mg ONCE ONE Administration Medical Decision Making Medical Decision Making [facility] Narrative: Patient is an 89 year old assigned female at with a history of trigeminal neuralgia s/p nerve block many years ago, GERD, HTN, and anxiety presenting to the emergency department today with continued left sided facial pain. Patient's physical exam was unremarkable and consistent with trigeminal neuralgia. Patient's blood work was unremarkable. Patient has no evidence of neurological deficit. I explained my physical exam findings as well as all test results to the patient. I answered all questions asked by the patient. Patient received 300mg of Trileptal which, upon re-evaluation, she stated it helped her symptoms significantly. I recommended the patient STOP the gabapentin she was previously prescribed and instead take the trileptal I've prescribed. I stressed the importance of the patient taking her medication as directed (either prescribed or as the over the counter packaging recommends). I stressed the importance of the patient following up with her primary care provider, neurologist as previously directed, and a pain specialist. I stressed the importance of the patient returning to the emergency department immediately if her symptoms were to worsen or if she were to develop any dizziness, shortness of breath, difficulty breathing, chest pain, blurry vision, loss of vision, nausea, vomiting, abdominal pain, fever, chills, back pain, or any other complaints. Patient verbalized agreement and understanding with this treatment plan and discharge. Differential Diagnosis Differential Diagnoses: The differential diagnosis associated with the presentation includes Trigeminal neuralgia Chronic face pain Admission/Observation Consideration of admission/observation: Escalation of care including admission/observation considered Patient would have been admitted to the hospital had her work up had any findings where hospital admission was appropriate and her clinical presentation warranted hospital admission. Independent Historian Clinical information obtained from an independent historian. History obtained from or confirmed by: EMS (EMS provided additional history and confirmed the history provided by the patient. ) Prescription Management I considered prescription management with: Pain Medication Discharge Plan Discharge Clinical Impression: Trigeminal neuralgia pain Patient Disposition: Home, Self-Care Instructions: Trigeminal Neuralgia (ED) Additional Instructions: STOP the previously prescribed gabapentin. Take the medication I have prescribed you instead - twice a day. Follow up with a neurologist as previously directed and a pain specialist. IF you are prescribed home medications and/or you are taking over the counter medications at home - it is very important you continue to do so as prescribed / directed unless told otherwise. Follow up with your primary care provider. Return to the emergency department immediately if your symptoms worsen or if you develop any numbness, tingling, dizziness, shortness of breath, difficulty breathing, chest pain, blurry vision, loss of vision, nausea, vomiting, abdominal pain, fever, chills, back pain, or any other complaints. Please see the information below about our Patient Portal. If you are not yet enrolled in the [facility] Patient Portal, you will receive an enrollment email invitation following your visit to any [facility] care setting. You may also self-enroll in the Patient Portal by visiting our website: [email or web address] The following information is required to access the Patient Portal: - Your [facility] Medical Record Number - Your personal home email address (must match what is in your electronic medical record, Registration staff can assist with this) - Name - Date of Capabilities of the Patient Portal: - Message some providers - View upcoming appointments - Access your health summary, medical history, and visit history - View current conditions and allergies - View procedure and lab results - View your medications, including guidelines, side effects, and precautions - Complete pre-appointment questionnaires requested by your provider - Ready summary reports of your office visits and procedures To access the Patient Portal Mobile Jayne, follow these directions: - Search [employer] in the Jayne Store or [email or web address] Store - Download the Jayne - Search for [facility] - Enter your login/password Prescriptions: New oxcarbazepine 300 mg tablet 300 mg PO BID Qty: 14 0RF No Action gabapentin 100 mg tablet 100 mg PO TID PRN (Reason: Facial pain) Qty: 20 0RF calcium carbonate-vitamin D3 500 mg-3.125 mcg (125 unit) Tablet 1 tab PO BID Probiotic 3 billion cell Capsule 3,000 mmu cells PO DAILY Rx Instructions: administer with a meal turmeric 400 mg Capsule 400 mg PO DAILY cimetidine 200 mg Tablet 200 mg PO DAILY Rx Instructions: administer with meals Vitamin B-12 acetaminophen 325 mg Tablet 650 mg PO Q6H PRN (Reason: Pain, Mild (Pain Scale 1-3)) 30 Days Qty: 240 0RF polyethylene glycol 3350 [Miralax] 17 gram/dose powder 17 g PO BID Qty: 119 0RF docusate sodium 100 mg capsule 100 mg PO BID Qty: 30 0RF sertraline 25 mg tablet 25 mg PO BEDTIME meclizine 25 mg tablet 25 mg PO DAILY PRN (Reason: Vertigo) amlodipine 2.5 mg tablet 2.5 mg PO DAILY 90 Days Qty: 90 4RF fluticasone furoate 50 mcg/actuation blister with device inhalation naproxen 500 mg tablet 500 mg PO BID Referrals: [facility] Pain Management [Provider Group, Pain Management] Referral Note: Call to establish and follow up with the pain specialist. Interventions: ED Discharge Assessment Last Done: 11/13/24 18:14 Discharge Date/Time: 11/13/24 18:29 Print Language: Yi
[2024-11-13 16:07] VITALS: BP 148/63; PULSE 92; RESP 18; TEMP 36.6; O2SAT 100; BMI 24.0
--- OUTSIDE RECORDS SUMMARY | 2024-11-13 16:42 | XMS_ITS | Clinical Summary ---
Demographics Address [address] [place] [id number] Home Phone Preferred Language Citizen Of [place] Marital Status Synagogue Affiliation Unknown Race White Ethnic Group Not or Lati no Author Organization [facility] Address [address] [place] [address] Care Team Providers Care Practice Physician Name Role Phone Lev Durham MD Primary Care Provider [phone] Allergies Active Allergy Reactions Criticality Noted Date [...] 103 04/30/2019 11:51 AM EST Temperature 36 C (96.8 F) 04/30/2019 11:51 AM EST Respiratory Rate - [...] or Tdap) 07/03/2022 07/03/2012 Influenza Vaccine (#1) 2024 9, 01/15/2017, 12/20/2015, Additional history exists Pneumococcal [...] Briana Farias Personal/Family Self [address] [place] [id number] Care Teams Practice Physician Relationship Specialty Start Date End Date Lev Durham MD [address] [place] [id number] PCP - General Internal Medicine 02/06/17
--- OUTSIDE RECORDS SUMMARY | 2024-11-13 16:42 | XMS_ITS | Clinical Summary ---
Author Organization [facility] Address [address] [place] [address] Phone Care Team Providers Care Order Picker/Assembler Name Role Phone Margie Wallis MD Primary Care Provider Allergies Active Allergy Reactions Criticality Noted Date [...] lower limb 09/22/201503/2020 Overview (09/24/2020): Evaluated at [facility] vascular services on 03/18/15. Compression stockings [...] patient's age to complete this topic Insurance [facility] [place] [facility] [place] Care Teams Order Picker/Assembler Relationship Specialty Start Date End Date Margie Wallis MD PCP - General Internal Medicine 09/30/20
--- OUTSIDE RECORDS SUMMARY | 2024-11-13 16:42 | XMS_ITS | Patient Health Record ---
Author Organization [facility] Address [address] [place] [address] Care Team Providers Care Transitional Care Nurse Name Role Phone Edilson JOHN, Anshul Primary Care Provider Dada Hampton Unavailable [phone] Reason For Referral No Information Plan Of Treatment No Information Insurance Providers Payer Name Payer Address Payer Phone Subscriber Number Group Number Insured Name Patient Relationship to Insured Coverage Start Date Coverage End Date [facility] [address] [place], [place] [id number] ORA HUFF Self - patient is the insured
[2024-11-13 18:14] VITALS: BP 148/63; PULSE 92; RESP 18; TEMP 36.6; O2SAT 100
== END 2024-11-13 18:29 | disposition home or self-care (01) ==
PROVIDERS: Emergency Provider Emergency Medicine
DX: G50.0 Trigeminal neuralgia (principal); I10 Essential (primary) hypertension; K21.9 Gastro-esophageal reflux disease without esophagitis; Z79.899 Other long term (current) drug therapy
CPT/HCPCS: 99282; 99283